=== PATIENT | male | born 1965 | race Caucasian/White ===

== ENCOUNTER 2019-03-09 06:11 | Inpatient (IN) | payer BC ==
[2019-03-09] MEDS ORDERED: BUPIVACAINE HCL/PF 0.5% (5MG/ML) 10 ML VIAL ONE (07:14)
[2019-03-09] MEDS ORDERED: BUPIVACAINE LIPOSOME/PF (EXPAREL) 266 MG/20 ML VIAL ONE (07:14)
[2019-03-09] MEDS ORDERED: MIDAZOLAM HCL 2 MG/2 ML SINGLE DOSE VIAL ONE ×2 (07:17)
[2019-03-09] MEDS ORDERED: THROMBIN (BOVINE) 5,000 UNIT VIAL TP ONE ×3 (07:23→09:29)
[2019-03-09] MEDS ORDERED: HEPARIN NA (PORCINE) 5,000 UNITS/ML 1ML VIAL ONE ×2 (07:23→08:30)
[2019-03-09] MEDS ORDERED: LIDOCAINE HCL/PF 2% SDV 5ML VIAL ONE (08:11)
[2019-03-09] MEDS ORDERED: fentaNYL CITRATE 250 MCG/5 ML VIAL ONE ×4 (08:11→15:12)
[2019-03-09] MEDS ORDERED: PROPOFOL 20 ML ONE ×14 (08:12→14:04)
[2019-03-09] MEDS ORDERED: SUCCINYLCHOLINE CHLORIDE 200 MG/10 ML SYRINGE ONE (08:12)
[2019-03-09] MEDS ORDERED: VANCOMYCIN 1,000 MG VIAL (RESTRICTED TO ID ONLY) IVPB ONE (08:30)
[2019-03-09] MEDS ORDERED: ceFAZolin SODIUM 1 GM VIAL IVPB ONE ×2 (08:30→09:20)
[2019-03-09] MEDS ORDERED: ROCURONIUM BROMIDE 50 MG/5 ML VIAL ONE ×2 (08:56→09:43)
[2019-03-09] MEDS ORDERED: VANCOMYCIN 1,000 MG VIAL (RESTRICTED TO ID ONLY) ONE (09:17)
[2019-03-09] MEDS ORDERED: ceFAZolin SODIUM 1 GM VIAL ONE ×4 (09:17→13:01)
[2019-03-09] MEDS ORDERED: GELATIN, ABSORBABLE 100 EACH SPONGE TP ONE (09:29)
[2019-03-09] MEDS ORDERED: TRANEXAMIC ACID 1000 MG/10 ML VIAL ONE ×2 (10:03)
--- NOTE | 2019-03-09 13:39 | PN ---
Progress Note (short form) - Note Progress Note: 53M POD #0 s/p: 1. L1, L2, L3, L4, L5, S1 laminectomies 2. L1, L2, L3, L4, L5, S1 osteotomies (facetectomies) 3. L4-L5 Ayers Degroot Osteotomies 4. T11-S1 posterior instrumentation 5. L2-L3, L4-L5, L5-S1 discectomies 6. L2-L3, L4-L5, L5-S1 posterior lumbar interbody fusion 7. L2-L3, L4-L5, L5-S1 insertion biomechanical devices 8. T11-S1 posterolateral arthrodesis 9. Durotomy repair 10. Bone allograft 11. Bone autograft 12. Bone marrow aspiration 13. Complex wound closure (30cm) -Admit to ICU post-op. -Pain control: patient received pre-op TLIP block w/Exparel; OK to use TODDLER LEAD TEACHER if needed; transition to oral analgesia post-op; NO NSAID's. -DVT PPx: -Mechanical only: BEAU's, SCD's. -Chemical: None. -Incentive spirometry q15 min. -NPO until flatus. -Lambert care; d/c when ambulating. -Post-op Ancef x 3 doses. -PT/OT/Rehab, OOB. -WBAT B/L LE. -No bending, lifting (>5 lbs), or twisting for 9-12 months. -Care per ICU & medical hospitalist Dr. Henson. -Discharge planning: f/u 7-10 days after discharge at [facility] office; call for appointment; . -Will follow. Rex Paredes MD (Orthopaedic Surgery).
--- NOTE | 2019-03-09 13:46 | OP ---
Operative Note - Note: Operative Date: 03/09/19 Pre-Operative Diagnosis: 1. L2-L3, L4-L5, L5-S1 disc herniations with lower extremity radiculopathy. 2. L1-S1 spinal stenosis with neurogenic claudication. 3. L2-L3 kyphosis with segmental instability and angular deformity. 4. Weakness with frequent falls. 5. Numbness. Severity of illness : 4. Operation: 1. L1, L2, L3, L4, L5, S1 laminectomies. 2. L1, L2, L3, L4, L5, S1 osteotomies (facetectomies). 3. L4-L5 Ayers Degroot Osteotomies. 4. T11-S1 posterior instrumentation. 5. L2-L3, L4-L5, L5-S1 discectomies. 6. L2-L3, L4- L5, L5-S1 posterior lumbar interbody fusion. 7. L2-L3, L4-L5, L5-S1 insertion biomechanical devices. 8. T11-S1 posterolateral arthrodesis. 9. Durotomy repair. 10. Bone allograft. 11. Bone autograft. 12. Bone marrow aspiration. 13. Complex wound closure (30cm) Implants: Cages: L2-L3: FortiLink Tetrafuse #12. L4-L5: FortiLink Tetrafuse # 15. L5-S1: FortiLink Tetrafuse #11. Screws: 6.5x45mm T11-L5. 7.5x40mm S1 Post-Operative Diagnosis: Same as Pre-op Surgeon: Rex Paredes Bone Worker: Mateus Paredes Anesthesiologist/ELECTRIC GOLF CART REPAIRER: Garland Durham Anesthesia: General, Local (TLIP block) Specimens Removed: L2-L3, L4-L5, L5-S1 discs Estimated Blood Loss (mls): 2,400 Drains & Tubes with Location: 1 x superficial HemoVac drain Blood Volume Replaced (mls): 1,125 (Cell Saver) Fluid Volume Replaced (mls): 4,500 (Crystalloid) Operative Report Dictated: Yes
[2019-03-09] MEDS ORDERED: PHENYLEPHRINE HCL 10 MG/1 ML SINGLE DOSE VIAL ONE (13:51)
[2019-03-09] MEDS ORDERED: ONDANSETRON 4 MG/2 ML VIAL IVPUSH PRN ×2 (15:54→16:00)
[2019-03-09] MEDS ORDERED: oxyCODONE HCL 5 MG TABLET PO PRN (16:00)
[2019-03-09] MEDS ORDERED: PROMETHAZINE HCL 25 MG/1 ML VIAL IVPUSH PRN (16:00)
[2019-03-09] MEDS ORDERED: HYDROmorphone *PCA* 10MG/50ML DISP.SYRIN ONE (16:07)
[2019-03-09] MEDS: LACTATED RINGERS SOLUTION 1,000 ML IV SCH (16:14)
[2019-03-09] MEDS: HYDROmorphone *PCA* 10MG/50ML DISP.SYRIN PCA SCH (16:22)
[2019-03-09 16:25] LABS: HYALINE CASTS 29 /lpf (0-8); URINE APPEARANCE TURBID; URINE BACTERIA 6.6 /hpf (NEGATIVE); URINE BILIRUBIN NEGATIVE (NEGATIVE); URINE COLOR YELLOW; URINE GLUCOSE (UA) NEGATIVE (NEGATIVE); URINE KETONE 1+ (NEGATIVE); URINE LEUK ESTERASE NEGATIVE (NEGATIVE); URINE NITRITE NEGATIVE (NEGATIVE); URINE PROTEIN TRACE (NEGATIVE); URINE UROBILINOGEN 0.2 mg/dL (0.2-1.0); URINE WBC 1 /hpf (0-5)
[2019-03-09 17:27] LABS: URINE RBC FEW /hpf (0-4)
[2019-03-09 17:29] LABS: URINE CRYSTALS AMORPHOUS URATES /hpf
--- NOTE | 2019-03-09 18:26 | CONSULT ---
Consultation: REQUESTING PROVIDER: CONSULT REQUEST: We have been asked to medically evaluate this patient for ICU. HISTORY OF PRESENT ILLNESS: Pt is a 53 y/o M with no significant pmh who had been experiencing low back pain since 2009 recently had acute worsening of back pain associated with occasional tingling in toes and weakness of R leg. Pt was brought to OR for intervention on T11-S1 including laminectomies, osteotomies, discectomies, fusion, insertion of biomechanical devices, arthrodesis. Currently, pt feels well. He does admit to residual back pain from the procedure. Currently denies weakness/numbness/tingling. Pt has not passed gas or urinated since the surgery. REVIEW OF SYSTEMS: CONSTITUTIONAL: Absent: fever, chills, diaphoresis, generalized weakness, malaise, loss of appetite, weight change HEENT: Absent: rhinorrhea, nasal congestion, throat pain, throat swelling, difficulty swallowing, mouth swelling, ear pain, eye pain, visual changes CARDIOVASCULAR: Absent: chest pain, syncope, palpitations, irregular heart rate, lightheadedness , peripheral edema RESPIRATORY: Absent: cough, shortness of breath, dyspnea with exertion, orthopnea, wheezing, stridor, hemoptysis GASTROINTESTINAL: Absent: abdominal pain, abdominal distension, nausea, vomiting, diarrhea, constipation, melena, hematochezia GENITOURINARY: Absent: dysuria, frequency, urgency, hesitancy, hematuria, flank pain, genital pain MUSCULOSKELETAL: back pain Absent: myalgia, arthralgia, joint swelling, , neck pain SKIN: Absent: rash, itching, pallor HEMATOLOGIC/IMMUNOLOGIC: Absent: easy bleeding, easy bruising, lymphadenopathy, frequent infections ENDOCRINE: Absent: unexplained weight gain, unexplained weight loss, heat intolerance, cold intolerance NEUROLOGIC: paresthesias, Absent: headache, focal weakness or dizziness, unsteady gait, seizure, mental status changes, bladder or bowel incontinence PSYCHIATRIC: Absent: anxiety, depression, suicidal or homicidal ideation, hallucinations. PHYSICAL EXAMINATION Vital Signs - 24 hr 03/09/19 03/09/19 03/09/19 06:53 06:55 15:55 Temperature 97.9 F 98.0 F Pulse Rate 73 123 H Respiratory 16 11 Rate Blood Pressure 133/90 122/81 O2 Sat by Pulse 99 99 Oximetry (%) 03/09/19 16:22 Temperature Pulse Rate 123 H Respiratory 10 Rate Blood Pressure 116/88 O2 Sat by Pulse 99 Oximetry (%) Gen: lying in bed, appears in some pain HEENT: NCAT, PERRL, EOMI, lips with small papular discolorations Neck: supple, no jvd Cardio: tachycardic, normal s1s2, no mrg appreciated Pulm: cta b/l, no rales, no ronchi Abd: soft, nontender, minimal bowel sounds Ext: no edema, 2+ pulses Neuro: limited exam due to pain. CN 2-12 intact. Strength 5/5 b/l UE. Plantar flexion/dorsiflexion intact b/l. Unable to assess hip/knee flexion/extension. Sensation intact b/l throughout. Laboratory Results - last 24 hr 03/09/19 03/09/19 03/09/19 06:24 07:37 15:23 Urine Color Yellow Urine Appearance Turbid Urine pH 6.0 Ur Specific [place] 1.037 H Urine Protein Trace Urine Glucose (UA) Negative Urine Ketones 1+ H Urine Blood 2+ H Urine Nitrite Negative Urine Bilirubin Negative Urine Urobilinogen 0.2 Ur Leukocyte Esterase Negative Urine WBC (Auto) 1 Urine RBC (Auto) Few Urine Casts (Auto) 29 U Epithel Cells (Auto) 2.0 Urine Crystals (Auto) Amorphous urates Urine Bacteria (Auto) 6.6 Blood Type A POSITIVE A POSITIVE Antibody Screen Negative Crossmatch IS Only See Detail Active Medications Generic Name Dose Route Start Last Admin Trade Name Freq PRN Reason Stop Dose Admin Acetaminophen 1,000 mg 03/09/19 15:54 Ofirmev Injection - IVPB 03/10/19 15:53 PRN PRN If narcotics are ineffective Cefazolin Sodium/Dextrose 2 gm 03/09/19 20:00 Ancef 2 Gm Premixed Ivpb - IVPB 03/10/19 12:01 Q8H KEYSHA Fentanyl 50 mcg 03/09/19 16:17 Sublimaze Injection - IVPUSH 03/10/19 02:00 Q5M PRN PAIN-PACU ORDER X 4 DOSES ONLY Hydromorphone HCl 10 mg 03/09/19 16:15 03/09/19 16:22 Dilaudid Social Work Faculty Member - CERTIFIED RECREATIONAL THERAPIST 03/12/19 16:02 10 mg CERTIFIED RECREATIONAL THERAPIST KEYSHA Administration Protocol Lactated Ringer's 1,000 mls @ 125 mls/hr 03/09/19 16:00 03/09/19 16:14 Lactated Ringers Solution IV 125 mls/hr ASDIR KEYSHA Administration Ondansetron HCl 4 mg 03/09/19 15:54 Zofran Injection IVPUSH Q6H PRN NAUSEA AND/OR VOMITING Ondansetron HCl 4 mg 03/09/19 16:00 Zofran Injection IVPUSH Q6H PRN NAUSEA AND/OR VOMITING Oxycodone HCl 10 mg 03/09/19 16:00 Roxicodone - PO 03/10/19 15:59 Q4H PRN PAIN LEVEL 6-10 Promethazine HCl 12.5 mg 03/09/19 16:00 Phenergan Injection - IVPUSH Q6H PRN NAUSEA-FOR RESCUE AFTER 15 MIN Triamterene/HCTZ 1 cap 03/10/19 10:00 Dyazide 25/37.5mg PO DAILY KEYSHA ASSESSMENT/PLAN: Pt is a 53 y/o M with no significant PMH who was experiencing chronic back and leg pain and was brought to the hospital for surgical repair of thoracolumosacral disease. #POD 0 back surgery (03/09/2019) -1. L1, L2, L3, L4, L5, S1 laminectomies. 2. L1, L2, L3, L4, L5, S1 osteotomies (facetectomies). 3. L4-L5 Ayers Degroot Osteotomies. 4. T11-S1 posterior instrumentation. 5. L2-L3, L4-L5, L5-S1 discectomies. 6. L2-L3, L4- L5, L5-S1 posterior lumbar interbody fusion. 7. L2-L3, L4-L5, L5-S1 insertion biomechanical devices. 8. T11-S1 posterolateral arthrodesis. 9. Durotomy repair. 10. Bone allograft. 11. Bone autograft. 12. Bone marrow aspiration. 13. Complex wound closure (30cm) -Pain currently controlled with CERTIFIED RECREATIONAL THERAPIST & Oxy -Pt denies urination/flatulence/BM -NPO #Nausea -Phenergen #Leg swelling -Pt states he takes Dyazide for leg swelling Dispo: We will continue to follow the patient. Thank you for this consultative opportunity. Visit type - Emergency Visit Emergency Visit: No - New Patient This patient is new to me today: Yes Date on this admission: 06/10/19 - Critical Care Critical Care patient: Yes Total Critical Care Time (in minutes): 25
--- NOTE | 2019-03-09 20:20 | HP ---
Admitting History and Physical - Admission Chief Complaint: back pain History of Present Illness: 53 y/o M with no significant PMH who was experiencing chronic back and leg pain and was brought to the hospital for surgical repair of thoracolumosacral disease. History Source: Patient Limitations to Obtaining History: No Limitations - Past Medical History STOCK ROLLER: No: Alzheimer's, CVA, Dementia, Migraine, Multiple Sclerosis, Peripheral Neuropathy, Parkinson's, Seizure, Syncope, TIA, Vertigo, Other Cardiovascular: No: AFIB, Aneurysm, Aortic Insufficiency, Aortic Stenosis, CAD, CHF, Deep Vein Thrombosis, HTN, Hyperlipdemia, DE, Mitral Insufficiency, Mitral Stenosis, Murmur, Pulmonary Hypertension, Other Pulmonary: No: Asthma, Bronchitis, Cancer, COPD, O2 Dependent, Pneumonia, Previously Intubated, Pulmonary Embolus, Pulmonary Fibrosis, Sleep Apnea, Other Gastrointestinal: No: Ascites, Cancer, Constipation, Crohn's Disease, Diverticulitis, Diverticulosis, Esophageal Varices, Gastritis, GERD, GI Bleed, Hemorrhoids, Hiatal Hernia, Inflamatory Bowel Disease, Irritable Bowel Disease, Pancreatitis, Peptic Ulcer Disease, Ulcerative Colitis, Other Hepatobiliary: No: Cirrhosis, Cholelithiasis, Cholecystitis, Choledocholithiasis , Hepatitis A, Hepatitis B, Hepatitis C, Other Renal/: No: Renal Failure, Renal Inusuff, BPH, Cancer, Hematuria, Hemodialysis , Neurogenic Bladder, Renal Calculi, UTI, Other Heme/Onc: No: Anemia, B12 Deficiency, Bleeding Disorder, Cancer, Current Chemotherapy, Current Radiation Therapy, Hemochromatosis, Hypercoaguable State, Myeloproliferative Synd, Sickle Cell Disease, Sickle Cell Trait, Thrombocytopenia, Other Infectious Disease: No: AIDS, C-Diff, Herpes Zoster, HIV, MRSA, STD's, Tuberculosis, VREF, Other Psych: No: Addictions, Anxiety, Bipolar, Depression, Panic, Psychosis, Schizophrenia, Other Musculoskeletal: No: Bursitis, Chronic low back pain, Hemiparesis, Hemiplegia, Osteoarthritis, Paraplegia, Other Rheumatology: No: Fibromyalgia, Gout, Lupus, Rheumatoid Arthritis, Sarcoidosis, Vasculitis, Other ENT: No: Allergic Rhinitis, Sinusitis, Other Dermatology: No: Basal Cell, Cellulitis, Eczema, Melanoma, Psoriasis, Squamous Cell, Other - Past Surgical History Past Surgical History: Yes: None - Smoking History Smoking history: Never smoked - Alcohol/Substance Use Hx Alcohol Use: Yes (OCCAS) - Social History History of Recent Travel: No Home Medications - Allergies Allergies/Adverse Reactions: Allergies Allergy/AdvReac Type Severity Reaction Status Date / Time No Known Allergies Allergy Verified 03/09/19 06:50 - Home Medications Home Medications: Ambulatory Orders Cholecalciferol (Vitamin D3) [Vitamin D] 2,000 unit PO DAILY 03/06/19 Docusate Sodium [Colace] 100 mg PO BID 03/06/19 Oxycodone HCl/Acetaminophen [Percocet 5-325 mg Tablet] 1 tab PO Q4H 03/06/19 Triamterene/Hydrochlorothiazid [Triamterene-Hctz 37.5-25 mg Cp] 1 each PO DAILY 03/06/19 Review of Systems - Review of Systems Constitutional: reports: No Symptoms Eyes: reports: No Symptoms HENT: reports: No Symptoms Neck: reports: No Symptoms Cardiovascular: reports: No Symptoms Respiratory: reports: No Symptoms Gastrointestinal: reports: No Symptoms Genitourinary: reports: No Symptoms Musculoskeletal: reports: Back Pain, Joint Swelling Integumentary: reports: No Symptoms Neurological: reports: No Symptoms Endocrine: reports: No Symptoms Hematology/Lymphatic: reports: No Symptoms Psychiatric: reports: No Symptoms Physical Examination Vital Signs: Vital Signs Temperature 98 F 03/09/19 16:45 Pulse Rate 123 H 03/09/19 18:22 Respiratory Rate 4 L 03/09/19 18:22 Blood Pressure 107/74 03/09/19 18:22 O2 Sat by Pulse Oximetry (%) 99 03/09/19 18:22 Constitutional: Yes: Well Nourished, No Distress, Calm Eyes: Yes: WNL HENT: Yes: WNL Cardiovascular: Yes: WNL Respiratory: Yes: WNL Gastrointestinal: Yes: WNL Renal/: Yes: WNL Musculoskeletal: Yes: Back Pain, Joint Swelling Extremities: Yes: WNL Edema: No Integumentary: Yes: WNL Wound/Incision: Yes: Clean/Dry, Well Approximated Neurological: Yes: WNL ...Motor Strength: WNL Psychiatric: Yes: WNL Assessment/Plan 53 y/o M with no significant PMH who was experiencing chronic back and leg pain and was brought to the hospital for surgical repair of thoracolumosacral disease. -S/P: 1. L1, L2, L3, L4, L5, S1 laminectomies. 2. L1, L2, L3, L4, L5, S1 osteotomies (facetectomies). 3. L4-L5 Ayers Degroot Osteotomies. 4. T11-S1 posterior instrumentation. 5. L2-L3, L4-L5, L5-S1 discectomies. 6. L2-L3, L4- L5, L5-S1 posterior lumbar interbody fusion. 7. L2-L3, L4-L5, L5-S1 insertion biomechanical devices. 8. T11-S1 posterolateral arthrodesis. 9. Durotomy repair. 10. Bone allograft. 11. Bone autograft. 12. Bone marrow aspiration. 13. Complex wound closure (30cm) -cont pain management. incentive spirometry. -He is currently hypoxic and tachycardic. IV fluids running. cont O2 via NC. keep O2>92%. will get D-dimer, troponin, ABG, CBC, CMP -GI, DVT prophylaxis. needs to be on full AC till is PE ruled out. -NPO, IV fluids -assessment and plan discussed with pt and medical staff. will follow up
[2019-03-09] MEDS ORDERED: HEPARIN NA (PORCINE) 5,000 UNITS/ML 1ML VIAL IVPUSH PRN (20:42)
--- NOTE | 2019-03-09 20:54 | PN ---
Progress Note (short form) - Note Progress Note: Currently pt reports being in 3/10 intensity of pain with mild parasthesias of the toes b/l. PE: Gen: NAD, awake, alert, oriented x3 HEENT: NC/AT, EOMI, ROSMERY, sclera anicteric, MMM, no JVD LUNGS: poor inspiratory effort however no wheezes or crackles noted. Currently saturating 100% on 3L CARDIAC: Tachycardic with regular rhythm, no murmurs appreciated in all kohler EXT: No edema noted, no calf tenderness, SCDs in place NEURO: Symmetrical dullness of sensation noted on b/l lower feet. Pressure sensation intact, motor function limited due to post-operative pain however symmetricl. CN's II-XII intact Given pt's hypoxia off of oxygen (88-89% off oxygen) and unresolving sinus tachycardia without pain will order ABG, CBC, BMP, d-dimer as discussed with Dr. Henson. Pt has notable desaturation off of oxygen, however he responds with continued oxygen treatment. Start on heparin gtt as Dr. Henson has discussed and will f/u lab findings. Incentive spirometer to bedside as well.
[2019-03-09 21:12] LABS: ARTERIAL BLD GAS O2 SATURATION 98.1 % (95-98); ARTERIAL BLOOD GAS BASE EXCESS -3.4 meq/l (-2-2); ARTERIAL BLOOD GAS PCO2 42.4 mmHg (35-45); ARTERIAL BLOOD GAS PO2 121 mmHg (80-105); ARTERIAL BLOOD GAS pH 7.33 (7.35-7.45)
[2019-03-09 21:13] LABS: ALLENS TEST POSITIVE
[2019-03-09] MEDS: ceFAZolin 2 GRAM PREMIX BAG IVPB SCH (21:15)
[2019-03-09] MEDS: ACETAMINOPHEN 1000 MG/100 ML VIAL (NON FORMULARY) IVPB PRN (21:15)
[2019-03-09 22:36] LABS: HEMATOCRIT 40.2 % (35.4-49); HEMOGLOBIN 13.4 GM/dL (11.7-16.9); MCH 29.3 pg (25.7-33.7); MCHC 33.4 g/dl (32.0-35.9); MEAN CELL VOLUME 87.8 fl (80-96); PLATELET COUNT 183 K/MM3 (134-434); RBC 4.58 M/mm3 (4.00-5.60); RDW 13.3 % (11.9-15.9); WHITE BLOOD COUNT 19.2 K/mm3 (4.0-10.0)
[2019-03-09] MEDS: HEPARIN INFUSION - 25,000 UNITS/500 ML INFUS.BAG IVPB SCH (23:00)
[2019-03-09 23:12] LABS: ANION GAP 7 MMOL/L (8-16); BLOOD UREA NITROGEN 26.6 mg/dL (7-18); CHLORIDE 111 mmol/L (98-107); CO2 24 mmol/L (21-32); CREATININE 1.2 mg/dL (0.55-1.3); GLUCOSE,RANDOM 152 mg/dL (74-106); SODIUM 141 mmol/L (136-145)
[2019-03-10] MEDS: ACETAMINOPHEN 1000 MG/100 ML VIAL (NON FORMULARY) IVPB PRN (03:59)
[2019-03-10] MEDS: ceFAZolin 2 GRAM PREMIX BAG IVPB SCH ×2 (03:59→11:49)
[2019-03-10] MEDS ORDERED: HYDROmorphone *PCA* 10MG/50ML DISP.SYRIN ONE ×2 (05:06→17:24)
[2019-03-10 05:39] LABS: HEMATOCRIT 36.3 % (35.4-49); HEMOGLOBIN 12.1 GM/dL (11.7-16.9); MCHC 33.2 g/dl (32.0-35.9); MEAN CELL VOLUME 87.4 fl (80-96); MEAN PLT VOLUME 9.5 fl (7.5-11.1); RBC 4.15 M/mm3 (4.00-5.60); RDW 13.3 % (11.9-15.9); WHITE BLOOD COUNT 15.4 K/mm3 (4.0-10.0)
[2019-03-10 05:55] LABS: INR 1.15 (0.83-1.09); PROTHROMBIN TIME (PATIENT) 13.6 SEC (9.7-13.0)
[2019-03-10 05:58] LABS: ACTIVATED PTT 44.6 SECONDS (25.2-36.5)
[2019-03-10 06:03] LABS: BLOOD UREA NITROGEN 27.2 mg/dL (7-18); CALCIUM 7.9 mg/dL (8.5-10.1); CREATININE 1.2 mg/dL (0.55-1.3); POTASSIUM 4.5 mmol/L (3.5-5.1)
[2019-03-10 06:28] LABS: PLATELET COUNT 167 K/MM3 (134-434)
--- NOTE | 2019-03-10 08:20 | PN ---
Physical Exam: SUBJECTIVE: Patient seen and examined at bedside- overnight patient was found to be hypoxic/tachycardic and a CTA was done showing PE in proximal to mid right lower lobe pulmonary arteries . patient states his pain is around a 5/10; he has not passed gas yet; he denies any CP/SOB/N/V- needed to use his THERAPY DIRECTOR quite frequently overnight . OBJECTIVE: Vital Signs Period Temp Pulse Resp BP Sys/Augustin Pulse Ox Last 24 Hr 97.8 F-99.1 F 104-126 4-23 105-131/68-89 96-100 GENERAL: The patient is awake, alert, and fully oriented, in no acute distress. EYES:PEERLA: EOMI; no scleral icterus NECK: no JVD; no lymphadenopathy . LUNGS: CTA B.L; no rales, rhonchi or wheezing HEART: Regular rate and rhythm, S1, S2 without murmur, rub or gallop. ABDOMEN: Soft, nontender, nondistended, normoactive bowel sounds, no guarding, no rebound, no hepatosplenomegaly, no masses. EXTREMITIES: 2+ pulses, warm, well-perfused, no edema; NEUROLOGICAL: Cranial nerves II through XII grossly intact. patient wiggling toes and sensation is intact throughout PSYCH: Normal mood, normal affect. SKIN: Warm, dry, normal turgor, no rashes or lesions noted Laboratory Results - last 24 hr 03/09/19 03/09/19 03/09/19 06:24 07:37 15:23 WBC RBC Hgb Hct MCV MCH MCHC RDW Plt Count MPV PT with INR INR PTT (Actin FS) D-Dimer Puncture Site ABG pH ABG pCO2 at Pt Temp ABG pO2 at Pt Temp ABG HCO3 ABG O2 Sat (Measured) ABG O2 Content ABG Base Excess Driss Test O2 Delivery Device Oxygen Flow Rate Sodium Potassium Chloride Carbon Dioxide Anion Gap BUN Creatinine Est GFR (CKD-EPI)AfAm Est GFR (CKD-EPI)NonAf Random Glucose Calcium Creatine Kinase Creatine Kinase Index CK-MB (CK-2) Troponin I Urine Color Yellow Urine Appearance Turbid Urine pH 6.0 Ur Specific [place] 1.037 H Urine Protein Trace Urine Glucose (UA) Negative Urine Ketones 1+ H Urine Blood 2+ H Urine Nitrite Negative Urine Bilirubin Negative Urine Urobilinogen 0.2 Ur Leukocyte Esterase Negative Urine WBC (Auto) 1 Urine RBC (Auto) Few Urine Casts (Auto) 29 U Epithel Cells (Auto) 2.0 Urine Crystals (Auto) Amorphous urates Urine Bacteria (Auto) 6.6 Blood Type A POSITIVE A POSITIVE Antibody Screen Negative Crossmatch IS Only See Detail 03/09/19 03/09/19 03/09/19 20:40 21:15 21:15 WBC RBC Hgb Hct MCV MCH MCHC RDW Plt Count MPV PT with INR INR PTT (Actin FS) D-Dimer 7880 H Puncture Site Right radial ABG pH 7.33 L ABG pCO2 at Pt Temp 42.4 ABG pO2 at Pt Temp 121 H ABG HCO3 21.8 L ABG O2 Sat (Measured) 98.1 H ABG O2 Content 18.5 ABG Base Excess -3.4 L Driss Test Positive O2 Delivery Device Nasal o2 Oxygen Flow Rate 3 Sodium 141 Potassium 5.0 Chloride 111 H Carbon Dioxide 24 Anion Gap 7 L BUN 26.6 H Creatinine 1.2 Est GFR (CKD-EPI)AfAm 78.98 Est GFR (CKD-EPI)NonAf 68.14 Random Glucose 152 H Calcium 8.0 L Creatine Kinase 5800 H Creatine Kinase Index 1.6 CK-MB (CK-2) 97.0 H Troponin I < 0.02 Urine Color Urine Appearance Urine pH Ur Specific [place] Urine Protein Urine Glucose (UA) Urine Ketones Urine Blood Urine Nitrite Urine Bilirubin Urine Urobilinogen Ur Leukocyte Esterase Urine WBC (Auto) Urine RBC (Auto) Urine Casts (Auto) U Epithel Cells (Auto) Urine Crystals (Auto) Urine Bacteria (Auto) Blood Type Antibody Screen Crossmatch IS Only 03/09/19 03/09/19 03/10/19 21:15 22:15 05:20 WBC 19.2 H 15.4 H RBC 4.58 4.15 Hgb 13.4 12.1 Hct 40.2 36.3 MCV 87.8 87.4 MCH 29.3 29.0 MCHC 33.4 33.2 RDW 13.3 13.3 Plt Count 183 167 MPV 10.0 9.5 PT with INR INR PTT (Actin FS) 25.9 D-Dimer Puncture Site ABG pH ABG pCO2 at Pt Temp ABG pO2 at Pt Temp ABG HCO3 ABG O2 Sat (Measured) ABG O2 Content ABG Base Excess Driss Test O2 Delivery Device Oxygen Flow Rate Sodium Potassium Chloride Carbon Dioxide Anion Gap BUN Creatinine Est GFR (CKD-EPI)AfAm Est GFR (CKD-EPI)NonAf Random Glucose Calcium Creatine Kinase Creatine Kinase Index CK-MB (CK-2) Troponin I Urine Color Urine Appearance Urine pH Ur Specific [place] Urine Protein Urine Glucose (UA) Urine Ketones Urine Blood Urine Nitrite Urine Bilirubin Urine Urobilinogen Ur Leukocyte Esterase Urine WBC (Auto) Urine RBC (Auto) Urine Casts (Auto) U Epithel Cells (Auto) Urine Crystals (Auto) Urine Bacteria (Auto) Blood Type Antibody Screen Crossmatch IS Only 03/10/19 03/10/19 05:20 05:20 WBC RBC Hgb Hct MCV MCH MCHC RDW Plt Count MPV PT with INR 13.60 H INR 1.15 H PTT (Actin FS) 44.6 H D-Dimer Puncture Site ABG pH ABG pCO2 at Pt Temp ABG pO2 at Pt Temp ABG HCO3 ABG O2 Sat (Measured) ABG O2 Content ABG Base Excess Driss Test O2 Delivery Device Oxygen Flow Rate Sodium 142 Potassium 4.5 Chloride 108 H Carbon Dioxide 26 Anion Gap 9 BUN 27.2 H Creatinine 1.2 Est GFR (CKD-EPI)AfAm 78.98 Est GFR (CKD-EPI)NonAf 68.14 Random Glucose 154 H Calcium 7.9 L Creatine Kinase Creatine Kinase Index CK-MB (CK-2) Troponin I Urine Color Urine Appearance Urine pH Ur Specific [place] Urine Protein Urine Glucose (UA) Urine Ketones Urine Blood Urine Nitrite Urine Bilirubin Urine Urobilinogen Ur Leukocyte Esterase Urine WBC (Auto) Urine RBC (Auto) Urine Casts (Auto) U Epithel Cells (Auto) Urine Crystals (Auto) Urine Bacteria (Auto) Blood Type Antibody Screen Crossmatch IS Only Active Medications Generic Name Dose Route Start Last Admin Trade Name Freq PRN Reason Stop Dose Admin Acetaminophen 1,000 mg 03/09/19 15:54 03/10/19 03:59 Ofirmev Injection - IVPB 03/10/19 15:53 1,000 mg PRN PRN Administration If narcotics are ineffective Cefazolin Sodium/Dextrose 2 gm 03/09/19 20:00 03/10/19 03:59 Ancef 2 Gm Premixed Ivpb - IVPB 03/10/19 12:01 2 gm Q8H KEYSHA Administration Heparin Sodium (Porcine) 1,000 unit 03/09/19 20:42 Heparin - IVPUSH PRN PRN Heparin Heparin Sodium (Porcine) 5,000 unit 03/09/19 20:42 Heparin - IVPUSH PRN PRN Heparin Hydromorphone HCl 10 mg 03/09/19 16:15 03/09/19 16:22 Dilaudid Spray Gun Repairer - THERAPY DIRECTOR 03/12/19 16:02 10 mg THERAPY DIRECTOR KEYSHA Administration Protocol Lactated Ringer's 1,000 mls @ 125 mls/hr 03/09/19 16:00 03/09/19 16:14 Lactated Ringers Solution IV 125 mls/hr ASDIR KEYSHA Administration Heparin Sodium/Dextrose 25,000 units in 500 mls @ 20 mls/hr 03/09/19 20:45 23:00 Heparin Infusion - IVPB 1,000 units/hr TITR KEYSHA 20 mls/hr Administration Protocol 1,000 UNITS/HR Ondansetron HCl 4 mg 03/09/19 15:54 Zofran Injection IVPUSH Q6H PRN NAUSEA AND/OR VOMITING Ondansetron HCl 4 mg 03/09/19 16:00 Zofran Injection IVPUSH Q6H PRN NAUSEA AND/OR VOMITING Oxycodone HCl 10 mg 03/09/19 16:00 Roxicodone - PO 03/10/19 15:59 Q4H PRN PAIN LEVEL 6-10 Promethazine HCl 12.5 mg 03/09/19 16:00 Phenergan Injection - IVPUSH Q6H PRN NAUSEA-FOR RESCUE AFTER 15 MIN Triamterene/HCTZ 1 cap 03/10/19 10:00 Dyazide 25/37.5mg PO DAILY [facility] ASSESSMENT/PLAN: 53 y.o male with PMH of HTN presented for worsening lower back pain and right toe numbness/tingling who underwent T11-S11 laminectomies, osteotomies, discectomies, fusions, arthroodesis who was found to have a R lower lobe PE #Neuro stable; no issues sensation intact throughout extremities -will monitor #Cardio patient has history of HTN -c/w home meds -given that patient was found to have PE - ordering echp -monitor hemodynamics # Heme patient found to have right pulmonary artery PE; no risk factors (no smoking history, recent travel, fam history) -currently on Heparin drip -monitor for signs of bleeding -monitor PTT; CBC daily -ordering echo and LE duplex #MSK POD #1 T11-S11 laminectomies/discectomies/fusions/arthrodesis -Dilaudid THERAPY DIRECTOR for pain; Oxy 5/10 -Zofran PRN for nausea -OOB -NPO until flatus -LR @125mls/hr -incentive spirometer -follow Dr. Paredes/Sixto recommendations #Pulmonary patient found to have PE in prox to mid right lower lobe pulmonary artery -patient currently on Heparin drip -monitor PTT/CBC -monitor O2 sats and hemodynamics F/E/N LR @125mls/hr monitor electrolytes NPO until flatus DVT PPX: heparin drip Problem List - Problems (1) Hx of spinal surgery Code(s): Z98.890 - OTHER SPECIFIED POSTPROCEDURAL STATES (2) Pulmonary embolism Code(s): I26.99 - OTHER PULMONARY EMBOLISM WITHOUT ACUTE COR PULMONALE (3) HTN (hypertension) Code(s): I10 - ESSENTIAL (PRIMARY) HYPERTENSION Visit type - Emergency Visit Emergency Visit: Yes ED Registration Date: 03/09/19 Care time: The patient presented to the Emergency Department on the above date and was hospitalized for further evaluation of their emergent condition. - New Patient This patient is new to me today: Yes Date on this admission: 03/10/19 - Critical Care Critical Care patient: Yes Total Critical Care Time (in minutes): 35 Critical Care Statement: The care of this patient involved high complexity decision making to prevent further life threatening deterioration of the patient 's condition and/or to evaluate & treat vital organ system(s) failure or risk of failure.
[2019-03-10] MEDS: HEPARIN NA (PORCINE) 5,000 UNITS/ML 1ML VIAL IVPUSH PRN ×2 (08:40→17:48)
[2019-03-10] MEDS ORDERED: PT OWN MED DRAWER 7, Y5N ONE (09:34)
[2019-03-10] MEDS: TRIAMTERENE AND HCTZ - 37.5 MG/25 MG CAPSULE PO SCH (09:38)
--- NOTE | 2019-03-10 12:14 | OP ---
Date of Operation: 03/09/2019 Pre-Operative Diagnosis: 1. 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 2. L1-S1 intervertebral disc disorders with bilateral lower extremity radiculopathy. 3. L1-S1 spinal stenosis with neurogenic claudication. 4. L1-S1 degenerative disease. Post-Operative Diagnosis: 1. 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 2. L1-S1 intervertebral disc disorders with bilateral lower extremity radiculopathy. 3. L1-S1 spinal stenosis with neurogenic claudication. 4. L1-S1 degenerative disease. Procedure Performed: 1. L1, L2, L3, L4, L5, S1 bilateral laminectomies & facetectomies. (87730-77 , 41073-21 x 5) 2. L2-L3, L4-L5, L5-S1 posterolateral arthrodesis & posterior lumbar interbody fusion (PLIF). (30704 x 3) 3. L2-L3, L4-L5, L5-S1 insertion biomechanical devices (77553 x 3). 4. T11-S1 posterior instrumentation. (25181-93-80) 5. T11-T12 posterolateral arthrodesis. (62817-48, 15629-52) 6. L1-L2, L3-L4 posterolateral arthrodesis. (15750-91, 90887-43) 7. Repair incidental durotomy. 8. Morselized bone autograft. (07879) 9. Morselized bone allograft. (86899) 10. Bone marrow aspiration for bone grafting. (26361) 11. Complex wound closure (45cm) (16398 x 6) Surgeon: Rex Paredes M.D. Olap Developer: Mateus Paredes M.D. Anesthesiologist: Garland Durham M.D. Anesthesia: General, Local (TLIP block). Position: Prone. Incision: Midline. Specimens Removed: L2-L3, L4-L5, L5-S1 disc. Implants: Cages: Fortilink Tetrafuse. L2-L3: 12mm. L4-L5: 15mm. L5-S1: 11mm. Screws: T11-L5 14 x 6.5x45mm. S1 2 x 7.5x40mm. Rods: 2. Cross-Link: 1. Drains: 1 x superficial HemoVac. Estimated Blood Loss: 1,500cc. Intravenous Fluid: 2L crystalloid. Transfusions: 600cc Cell Saver. Complications: None. Bacteriology: None. Closure: No. 1 Vicryl, 2-0 Biosyn absorbable sutures. Indications: The patient was indicated for the above listed surgical procedure due to progressive spinal deformity affecting balance and safety, and due to progressive neurological and functional decline that limits his mobility and ability to attend to his activities of daily living. The patient was identified in the holding area by his armband. A long discussion was held with the patient (in the presence of his ) regarding the risks, benefits, and alternatives of the above-listed procedure. The risks include, but are not limited to: Pain, bleeding, infection, damage to surrounding structures (including nerves, blood vessels, skin, ligaments, tendons, and bone), wound complications, failure of hardware/implants/reduction , need for further surgery, blood clots, myocardial infarction, cerebrovascular injury, pulmonary embolism, anesthesia complications, limp, numbness, paresthesias, loss of function, and . Benefits may include reduction of: spinal deformity, imbalance, back pain, radiculopathy, neurogenic claudication, and improved overall mobility and function. Alternatives include no surgery. All questions were answered. The patient understood and agreed to the procedure. Informed consent was obtained, witnessed, and verified. The patient's lumbar spine was marked. He was then assessed by the anesthesia team who proceeded to administer a bilateral imaging-guided TLIP block to facilitate post-operative pain management. The patient was then taken to the operating room after being seen by the anesthesia and nursing staff. Procedure: The patient was brought into the operating room, where anesthesia was then administered. This included 2g IV Ancef, 1g IV Vancomycin, and 1g IV tranexamic acid (TXA). A time-out was done led by , the attending surgeon. An indwelling Lambert catheter was successfully inserted by the nursing team. The intra-operative neuromonitoring team provided prepositioning baseline motor and sensory readings. The patient was then safely placed in a prone position with all bony prominences well-padded on a [facility] spine table with strict attention paid to maintenance of sagittal vertical alignment. Retroversion of the pelvis was avoided by ensuring that the hips were extended. This also ensured appropriate lumbar lordosis. The arms were placed on well-padded arm boards and maintained with standard forward flexion, abduction, and external rotation of the shoulders , and flexion of the elbows. Special attention was given to the safe positioning of the cervical spine. The patients eyes, and belly were all free. The table was placed in 6 degrees of reverse Trendelenburg position to avoid ophthalmic vein congestion. Post-positional motor and sensory readings confirmed no change. A C-arm fluoroscopy unit was positioned perpendicularly to the table and maintained at the level of the upper thoracic spine, except when needed. The skin was prepped in standard, sterile fashion using betadine prep & scrub, wiped off with alcohol, and DuraPrep applied. Standard window draping was utilized, and this included draping of the C-arm. Appropriate pre-operative imaging, including lumbar spine x-rays, and MRI, were available throughout the case for intraoperative evaluation. Verification of the intended surgical levels was confirmed with a lateral fluoroscopic x-ray using a Jessica elevator for localization. A time-out was repeated, and the case began. A midline skin incision was performed from the tip of the spinous process of T10 to the tip of the spinous process of S2. Using electrocautery, the dissection was carried down through subcutaneous fat and then through the midline of the lumbodorsal fascia down to the tips of the spinous processes. A subperiosteal dissection was performed using a combination of unipolar electrocautery and Jessica elevation. This was carried down the spinous process, over the laminae, across the facet joints, and out over the tips of the transverse processes from T11 to S1. The T11-S1 joint capsules were pathologically hypertrophic. They were ablated using electrocautery and resected with rongeurs. The posterolateral dissection was performed with attention to hemostatis by utilizing both unipolar as well as bipolar electrocautery. The posterolateral space was packed with Ray-Isi sponges. A Lilian clamp was placed over an exposed interspinous space and, once again, a lateral fluoroscopic x-ray helped identify the correct levels for dissection. A rongeur was used to grasp the L5 spinous processes and demonstrate the mobility of the L5-S1 segments. This confirmed the location of the last mobile segment. The bilateral L1, L2, L3, L4, L5, and S1 laminae were resected utilizing Kerrison rongeur upcuts combined with Leksell rongeurs. This completed the L1- S1 laminectomies. All harvested bone was saved, freed of fibrous tissue, and milled with a bone mill. Next, an osteotome was utilized to longitudinally split the pars interarticularis and the inferior facets of L1, L2, L3, L4, and L5 bilaterally. The osteotomized bone was imploded towards the thecal sac, which was protected with cottonoid patties, and removed with either a Leksell rongeur or a Kerrison ronguer. An incidental durotomy was identified and repaired using 4-0 Nurolon suture. Multiple Valsalva maneuvers up to 40mmHg ensured a water-tight, excellent dural repair. Upon removal of all osteotomized bone, we gained clear and easy access to the superior facets of L2, L3, L4, L5, and S1, where tight recess stenosis was appreciated. The exiting L1, L2 L3, L4, L5 & S1 nerve roots were identified and protected. The medial edge of the superior facets was resected at each level bilaterally using Kerrison rongeurs. This freed the theca and the exiting nerve roots at each level. The foraminae, bilaterally, at L1-L2, L2-L3, L3-L4, L4-L5, and L5-S1 were inspected utilizing an angled ball-tipped probe and proved to be generously capacious in accommodating the unobstructed exit of the nerve root at that level. The crowding of the convoluted ligamentum flavum and posterior facet joint capsules contributed to the recess stenosis. These structures were excised using Kerrison upcuts, thus fully completing the decompression. All retractors were relaxed and removed. A Jamshidi needle was delivered into the left posterior ileum through the same surgical incision. Via this, bone marrow was aspirated and spun down to isolate a mix of osteoprogenitor and hematopoietic cells. Retractors were inserted once again. The following was performed at L2-L3, L4-L5 and also at L5-S1: The theca was gently mobilized from right to left and from left to right using a nerve root retractor. In order to do this, we ensured that each nerve root was completely free in its neural foramen as previously described. With the disc clearly visualized, large epidural veins were cauterized using bipolar electrocautery. The disc was approached from the left side and using a # 11-blade, an cruciate annulotomy was performed. Ginna were passed into the disc at each level. At each level the discs were morselized with rotation of the ginna, and then extricated with pituitary rongeurs and saved for lab evaluation. The end plates were freed of all soft tissues using a serrated curette. Milled bone autograft was packed into the interbody space, thus completing an anterior arthrodesis of the intervertebral space. At L2-L3, a size 12mm x 22mm Fortilink Tetrafuse spacer was inserted. At L4-L5, a size 15mm x 22mm Fortilink Tetrafuse spacer was inserted. At L5-S1, a size 11mm x 22mm Fortilink Tetrafuse spacer was inserted. Each spacer was packed with bone autograft prior to insertion. Each cage was placed in a Press-Fit type manner where the ginna were one size under the actual size of the spacer placed as outlined above. An interference fit of the cage assured as we relied on ligamentotaxis for fixation. No dural problems were encountered, and the dura appeared healthy throughout the procedure. At this point, the neuromonitoring revealed no complications. In fact, there was an improvement in MEP readings relative to baseline reported at this point. Pedicle screws were then seated bilaterally from T11-S1 utilizing standard anatomical guidelines: IE the intersection of the horizontal axis of the transverse process with the longitudinal axis of the inferior facet at each level. Utilizing lateral fluoroscopic x-ray, a 4.5mm pneumatic drill was passed via the pedicle at each level, into the corresponding vertebral body. Imaging allowed us to ensure that the drill screw was delivered along the undersurface of each endplate. This was the best quality bone fixation at each level. Each pedicle was palpated with a ball tip feeler. No breech of anterior, medial , lateral, caudal or cranial bone bed was noted. Precision Spine pedicle screws were inserted from T11-S1. Each screw was reevaluated with lateral and anteroposterior fluoroscopy as well as intraoperative neuromonitoring. All intraoperative neuromonitoring readings were at or above the safe passage of 10 mA. The L1 and S1 pedicles were inspected and palpated using an angled ball-tipped probe. There was no evidence of screw breach involving any of the pedicles. Next, two rods were contoured, inserted and fixed into the screw heads with the appropriate screw caps. A torque-limiting device completed the fixation of each cap into each screw head. A single crosslink was utilized. The muscle was gently retracted off the intertransverse plane. All packing sponges were removed. Milled/morselized autologous bone, with morselized allograft bone expansion, was combined with the bone marrow aspiration and used for the posterolateral arthrodesis along the intertransverse plane from T11 to S1. The recipient bone bed was denuded of all soft tissue. No burring was necessary due to healthy bleeding of each bony surface, including the posterior surface of the transverse processes and the lateral surface of the pars interarticularis at each level. This completed the posterolateral arthrodesis. Again, a Valsalva maneuver up to 40mmHg ensured a water-tight, excellent dural repair. The durotomy repair site was covered with 3 strips of SurgiCel and then encased in DuraSeal. Throughout the case, the wound was irrigated with normal saline solution to keep the exposed soft tissues hydrated. The retractors were released every 15 to 20 minutes to enable adequate blood flow to the paraspinal muscles. These muscles were gently massaged upon release of the retractors to further facilitate blood flow. At the end of the procedure, fragmented and compromised paraspinal muscle was superficially debrided. The dura was inspected and was completely intact. Closure: The paraspinal muscles and lumbodorsal fascia overlying the paraspinal musculature was closed in the midline using #1 Vicryl sutures in simple interrupted fashion. Despite excellent hemostasis, a deep HemoVac drain was utilized. The wound was repeatedly thoroughly irrigated with normal saline solution. The subcutaneous tissues were closed using #1 Vicryl sutures. The skin was closed using a running 2-0 Biosyn absorbable suture. This completed a complex, 4-layered wound closure of approximately 45cm. The skin was then painted with benzoin and Steri-Strips were applied perpendicular to the incision. A Primapore adhesive Telfa island dressing was applied over the Steri-Strips and a sterile, compressive dressing was applied using 4x4 gauze pads. The skin was painted with DuraPrep. The wound was then sealed with adhesive Ioban. Final AP & lateral fluoroscopic analysis revealed a T11-S1 instrumentation was intact & place. The L2-L3, L4-L5, & L5-S1 disc heights were reconstituted with visibly patent neuroforaminae. There was no fluoroscopic evidence of retained sponges or needles. The sponge and needle counts were correct at the end of the case and I, the attending surgeon, was present and scrubbed throughout the case. The patient was transferred to a hospital bed. All neural monitoring leads were removed. The patient was then transferred to the recovery room in stable condition, as per the anesthesia team, having tolerated the procedure well. Overall comment: Operation went extremely well with no complications. All appropriate goals were achieved in the execution of this operative event. Rex Paredes MD [id number] MTDD
--- NOTE | 2019-03-10 12:38 | ECHO ---
Version: 1 Name: JOSÉ ANTONIO WELLS Exam: Adult Echocardiogram Study Date: 03/10/2019, 11:14 AM Age: 53 Years MMode/2D Measurements & Calculations IVSd: 1.07 cm LVIDs: 3.1 cm LVIDd: 3.7 cm LVPWd: 1.00 cm ACS: 2.12 cm LVOT diam: 2.11 cm Doppler Measurements & Calculations MV E max tj: 60.2 cm/sec Med E/e': 9.0 MV A max tj: 97.2 cm/sec Med Peak E' Tj: 6.7 cm/sec MV E/A: 0.62 Lat E/e': 9.0 Lat Peak E' Tj: 6.7 cm/sec Ao max P.9 mmHg CRYSTAL(I,D): 2.7 cm Ao mean P.9 mmHg LV V1 mean: 50.4 cm/sec Ao V2 max: 111.2 cm/sec LV V1 mean P.27 mmHg Procedure A complete two-dimensional transthoracic echocardiogram was performed (2D, M-mode, Doppler and color flow Doppler). The patient was in a tachycardic rhythm during the exam. Left Ventricle The left ventricular size, thickness and function are normal. Ejection Fraction = 65%. E/A reversal consistent with but not diagnostic of poor LV compliance. The left ventricular wall motion is normal . Right Ventricle The right ventricle is normal in size and function. Atria Normal left and right atrial size and function. Mitral Valve The mitral valve is normal in structure and function. There is trace mitral regurgitation. Tricuspid Valve The tricuspid valve is not well visualized, but is grossly normal. There is trace tricuspid regurgit ation. There was insufficient TR detected to calculate RV systolic pressure. Aortic Valve The aortic valve is normal in structure and function. Pulmonic Valve The pulmonic valve is not well visualized. Great Vessels The aortic root is normal size. Pericardium/Pleura There is no pericardial effusion. There is no pleural effusion. Summary Statements The patient was in a tachycardic rhythm during the exam. The left ventricular size, thickness and function are normal Ejection Fraction = 65%. The right ventricle is normal in size and function. Normal left and right atrial size and function. There is trace mitral regurgitation. There is trace tricuspid regurgitation. There was insufficient TR detected to calculate RV systolic pressure. MD Judson Heath 03/10/2019, 11:38 AM Ordering Physician: LISA CAMACHO Referring Physician: Rex Paredes Performed By: Rossy Schaefer
--- NOTE | 2019-03-10 13:28 | PN ---
Teaching Attending Note Name of Resident: Aaliyah Sales ATTENDING PHYSICIAN STATEMENT I saw and evaluated the patient. I reviewed the resident's note and discussed the case with the resident. I agree with the resident's findings and plan as documented. SUBJECTIVE: Pt seen and examined in the ICU. Still tachycardic with some back pain. Denies shortness of breath. OBJECTIVE: Vital Signs Period Temp Pulse Resp BP Sys/Augustin Pulse Ox Last 24 Hr 97.8 F-99.1 F 104-126 4-23 105-138/68-92 96-100 Intake & Output 03/07/19 03/08/19 03/09/19 03/10/19 23:59 23:59 23:59 23:59 Intake Total 4800 1787 Output Total 2700 700 Balance 2100 1087 Gen: NAD at rest Heart: RRR Lung: decreased breath sounds at the bases Abd: soft, nontender Ext: no edema CBC, BMP 03/10/19 05:20 03/10/19 05:20 Active Medications Acetaminophen (Ofirmev Injection -) 1,000 mg IVPB PRN PRN PRN Reason: If narcotics are ineffective Stop: 03/10/19 15:53 Last Admin: 03/10/19 03:59 Dose: 1,000 mg Heparin Sodium (Porcine) (Heparin -) 1,000 unit IVPUSH PRN PRN PRN Reason: Heparin Last Admin: 03/10/19 08:40 Dose: 1,000 unit Heparin Sodium (Porcine) (Heparin -) 5,000 unit IVPUSH PRN PRN PRN Reason: Heparin Hydromorphone HCl (Dilaudid Press Breaker -) 10 mg UNDERWEAR CUTTER UNDERWEAR CUTTER KEYSHA; Protocol Stop: 03/12/19 16:02 Last Admin: 03/09/19 16:22 Dose: 10 mg Lactated Ringer's (Lactated Ringers Solution) 1,000 mls @ 125 mls/hr IV ASDIR KEYSHA Last Admin: 03/09/19 16:14 Dose: 125 mls/hr Heparin Sodium/Dextrose (Heparin Infusion -) 25,000 units in 500 mls @ 20 mls/ hr IVPB TITR KEYSHA; Protocol Last Titration: 03/10/19 08:19 Dose: 1,100 units/hr, 22 mls/hr Ondansetron HCl (Zofran Injection) 4 mg IVPUSH Q6H PRN PRN Reason: NAUSEA AND/OR VOMITING Ondansetron HCl (Zofran Injection) 4 mg IVPUSH Q6H PRN PRN Reason: NAUSEA AND/OR VOMITING Oxycodone HCl (Roxicodone -) 10 mg PO Q4H PRN PRN Reason: PAIN LEVEL 6-10 Stop: 03/10/19 15:59 Promethazine HCl (Phenergan Injection -) 12.5 mg IVPUSH Q6H PRN PRN Reason: NAUSEA-FOR RESCUE AFTER 15 MIN Triamterene/HCTZ (Dyazide 25/37.5mg) 1 cap PO DAILY KEYSHA Last Admin: 03/10/19 09:38 Dose: 1 cap ASSESSMENT AND PLAN: Lumbar Stenosis with Radiculopathy and Neurogenic Claudication s/p L1-S1 Laminectomies/Osteotomies/Posterior Instrumentation/PLIF/ Biomechanical Devices Acute Pulmonary Emboli - continue anticoagulation - monitor H/H - pain control - incentive spirometry - PO when flatus - d/c [place] when OOB - ICU monitoring
[2019-03-10] MEDS: LACTATED RINGERS SOLUTION 1,000 ML IV SCH ×2 (17:26→19:22)
[2019-03-10] MEDS: HYDROmorphone *PCA* 10MG/50ML DISP.SYRIN PCA SCH (17:27)
[2019-03-10] MEDS: HEPARIN INFUSION - 25,000 UNITS/500 ML INFUS.BAG IVPB SCH (19:22)
--- NOTE | 2019-03-10 19:52 | PN ---
Progress Note, Physician Chief Complaint: SOB, back pain - Current Medication List Current Medications: Active Medications Heparin Sodium (Porcine) (Heparin -) 1,000 unit IVPUSH PRN PRN PRN Reason: Heparin Last Admin: 03/10/19 17:48 Dose: 1,000 unit Heparin Sodium (Porcine) (Heparin -) 5,000 unit IVPUSH PRN PRN PRN Reason: Heparin Hydromorphone HCl (Dilaudid Resident Program Specialist -) 10 mg TOPOGRAPHIC COMPUTATOR TOPOGRAPHIC COMPUTATOR KEYSHA; Protocol Stop: 03/12/19 16:02 Last Admin: 03/10/19 17:27 Dose: 10 mg Lactated Ringer's (Lactated Ringers Solution) 1,000 mls @ 125 mls/hr IV ASDIR KEYSHA Last Admin: 03/10/19 19:22 Dose: 125 mls/hr Heparin Sodium/Dextrose (Heparin Infusion -) 25,000 units in 500 mls @ 20 mls/ hr IVPB TITR KEYSHA; Protocol Last Admin: 03/10/19 19:22 Dose: 1,200 units/hr, 24 mls/hr Ondansetron HCl (Zofran Injection) 4 mg IVPUSH Q6H PRN PRN Reason: NAUSEA AND/OR VOMITING Last Admin: 03/10/19 14:28 Dose: 4 mg Ondansetron HCl (Zofran Injection) 4 mg IVPUSH Q6H PRN PRN Reason: NAUSEA AND/OR VOMITING Promethazine HCl (Phenergan Injection -) 12.5 mg IVPUSH Q6H PRN PRN Reason: NAUSEA-FOR RESCUE AFTER 15 MIN Triamterene/HCTZ (Dyazide 25/37.5mg) 1 cap PO DAILY [facility] Last Admin: 03/10/19 09:38 Dose: 1 cap - Objective Vital Signs: Vital Signs Temperature 99 F 03/10/19 16:00 Pulse Rate 117 H 03/10/19 18:00 Respiratory Rate 14 03/10/19 18:00 Blood Pressure 113/94 03/10/19 18:00 O2 Sat by Pulse Oximetry (%) 98 03/10/19 18:00 Constitutional: Yes: Well Nourished Eyes: Yes: WNL HENT: Yes: WNL Neck: Yes: WNL Cardiovascular: Yes: WNL, Tachycardia Respiratory: Yes: WNL, Diminished Gastrointestinal: Yes: WNL Genitourinary: Yes: WNL Musculoskeletal: Yes: Back Pain Extremities: Yes: WNL Edema: No Integumentary: Yes: WNL Wound/Incision: Yes: Clean/Dry, Well Approximated Neurological: Yes: WNL ...Motor Strength: WNL Labs: CBC, BMP 03/10/19 05:20 03/10/19 05:20 INR, PTT INR 1.15 (0.83-1.09) H 03/10/19 05:20 Assessment/Plan 53 y/o M with no significant PMH who was experiencing chronic back and leg pain and was brought to the hospital for surgical repair of thoracolumosacral disease. -S/P: 1. L1, L2, L3, L4, L5, S1 laminectomies. 2. L1, L2, L3, L4, L5, S1 osteotomies (facetectomies). 3. L4-L5 Ayers Degroot Osteotomies. 4. T11-S1 posterior instrumentation. 5. L2-L3, L4-L5, L5-S1 discectomies. 6. L2-L3, L4- L5, L5-S1 posterior lumbar interbody fusion. 7. L2-L3, L4-L5, L5-S1 insertion biomechanical devices. 8. T11-S1 posterolateral arthrodesis. 9. Durotomy repair. 10. Bone allograft. 11. Bone autograft. 12. Bone marrow aspiration. 13. Complex wound closure (30cm) -cont pain management. incentive spirometry. -diagnosed with acute PE: on heparin drip. hemaotology eval requested r/o clotting disorder. -leucocytosis, likely from PE, r/o infectious etiology. -HTN: on dyazide. -GI, DVT prophylaxis. -cont IV fluids for rhabdomyolysis. urine RBC's is actually myoglobin ,not blood. no need for urology eval. -oral diet. aspiration precautions -assessment and plan discussed with pt and medical staff. will follow up
--- NOTE | 2019-03-11 00:13 | PN ---
Progress Note (short form) - Note Progress Note: 50M s/p L1-S1 decompression & T11-S1 posterolateral instrumented arthrodesis POD #1. Pt. has confirmed post-operative pulmonary embolism; receiving therapeutic anticoagulation. Pain well controlled. Pt. denies overnight history of headaches, chest pain, shortness of breath, nausea, vomiting, chills, & sweats. (+) Lambert; (-) Flatus; (-) BM. (+) Stood up with PT today; no positional headaches. All labs and vitals reviewed. PE: AAO x 3, NAD. L-Spine: Incision, dressing C/D/I. Drain intact & in place. B/L LE M: L2-S1 intact, minimum 3/5. RLE S: L2-L3, L5-S1 2/2; L4 1/2. LLE S: L2-S1 2/2. 50M s/p L1-S1 decompression & T11-S1 posterolateral instrumented arthrodesis POD #1. -Admit to ICU post-op. -Pain control: patient received pre-op TLIP block w/Exparel; OK to use FINANCIAL [employer] OFFICER if needed; transition to oral analgesia post-op; NO NSAID's. -DVT PPx: -Mechanical only: BEAU's, SCD's. -Chemical: therapeutic a/c as myesha ICU/hospitalist teams. -Incentive spirometry q15 min. -NPO until flatus. -Lambert care; d/c when ambulating. -PT/OT/Rehab, OOB. -WBAT B/L LE. -Raised toilet seat. -No bending, lifting (>5 lbs), or twisting for 9-12 months. -Care per ICU & medical hospitalist Dr. Henson. -Discharge planning: f/u 7-10 days after discharge at [facility] office; call for appointment; . -Will follow. Rex Paredes MD (Orthopaedic Surgery).
[2019-03-11 06:05] LABS: HEMATOCRIT 27.9 % (35.4-49); HEMOGLOBIN 9.7 GM/dL (11.7-16.9); MCH 29.9 pg (25.7-33.7); MCHC 34.7 g/dl (32.0-35.9); MEAN CELL VOLUME 86.2 fl (80-96); MEAN PLT VOLUME 9.4 fl (7.5-11.1); PLATELET COUNT 131 K/MM3 (134-434); RBC 3.24 M/mm3 (4.00-5.60); RDW 13.2 % (11.9-15.9); WHITE BLOOD COUNT 13.8 K/mm3 (4.0-10.0)
[2019-03-11] MEDS ORDERED: HYDROmorphone *PCA* 10MG/50ML DISP.SYRIN ONE ×2 (06:10→22:35)
[2019-03-11] MEDS: HYDROmorphone *PCA* 10MG/50ML DISP.SYRIN PCA SCH ×2 (06:13→22:39)
[2019-03-11] MEDS ORDERED: CYCLOBENZAPRINE HCL 5 MG TABLET PO ONE (06:22)
[2019-03-11 06:38] LABS: BLOOD UREA NITROGEN 17.8 mg/dL (7-18); CALCIUM 7.8 mg/dL (8.5-10.1); CREATININE 0.7 mg/dL (0.55-1.3); MAGNESIUM 2.3 mg/dL (1.8-2.4); POTASSIUM 4.1 mmol/L (3.5-5.1)
[2019-03-11] MEDS ORDERED: NAPH,MB-DB/K PH,MBDB POWDER PACKET PO ONE (07:29)
[2019-03-11] MEDS: LACTATED RINGERS SOLUTION 1,000 ML IV SCH (08:32)
[2019-03-11] MEDS: HEPARIN NA (PORCINE) 5,000 UNITS/ML 1ML VIAL IVPUSH PRN ×2 (08:33→17:34)
[2019-03-11] MEDS: DOCUSATE SODIUM 100 MG CAPSULE (FP) PO PRN (08:38)
--- NOTE | 2019-03-11 08:39 | PN ---
Physical Exam: SUBJECTIVE: Patient seen and examined at bedside- no acute events overnight; patient states that he was having thigh pain overnight and required flexeril which helped relieve his pain; he still has not passed gas or had any bowel movements; required MANUFACTURING LEAD multiple times overnight; denies CP/SOB/N/v OBJECTIVE: Vital Signs Period Temp Pulse Resp BP Sys/Augustin Pulse Ox Last 24 Hr 97.3 F-99 F 101-118 13-21 113-167/74-102 89-104 GENERAL: The patient is awake, alert, and fully oriented, in no acute distress. EYES:PEERLA: EOMI; no scleral icterus ENT: Ears normal, nares patent, oropharynx clear without exudates, moist mucous membranes. NECK: Trachea midline, full range of motion, supple. LUNGS: Breath sounds equal, clear to auscultation bilaterally, no wheezes, no crackles, no accessory muscle use. HEART: Regular rate and rhythm, S1, S2 without murmur, rub or gallop. ABDOMEN: Soft, nontender, nondistended, normoactive bowel sounds, no guarding, no rebound, no hepatosplenomegaly, no masses. EXTREMITIES: 2+ pulses, warm, well-perfused, no edema. NEUROLOGICAL: Cranial nerves II through XII grossly intact. Normal speech, gait not observed. PSYCH: Normal mood, normal affect. SKIN: Warm, dry, normal turgor, no rashes or lesions noted Laboratory Results - last 24 hr 03/10/19 03/10/19 03/11/19 16:30 22:50 05:27 WBC 13.8 H RBC 3.24 L Hgb 9.7 L Hct 27.9 L D MCV 86.2 MCH 29.9 MCHC 34.7 RDW 13.2 Plt Count 131 L D MPV 9.4 PTT (Actin FS) 49.0 H 50.3 H Sodium Potassium Chloride Carbon Dioxide Anion Gap BUN Creatinine Est GFR (CKD-EPI)AfAm Est GFR (CKD-EPI)NonAf Random Glucose Calcium Phosphorus Magnesium 03/11/19 03/11/19 05:27 05:27 WBC RBC Hgb Hct MCV MCH MCHC RDW Plt Count MPV PTT (Actin FS) 49.0 H Sodium 140 Potassium 4.1 Chloride 103 Carbon Dioxide 32 Anion Gap 5 L BUN 17.8 Creatinine 0.7 Est GFR (CKD-EPI)AfAm 124.00 Est GFR (CKD-EPI)NonAf 106.99 Random Glucose 126 H Calcium 7.8 L Phosphorus 2.0 L Magnesium 2.3 Active Medications Generic Name Dose Route Start Last Admin Trade Name Freq PRN Reason Stop Dose Admin Docusate Sodium 100 mg 03/11/19 07:50 03/11/19 08:38 Colace - PO 100 mg BID PRN Administration CONSTIPATION Heparin Sodium (Porcine) 1,000 unit 03/09/19 20:42 03/11/19 08:33 Heparin - IVPUSH 1,000 unit PRN PRN Administration Heparin Heparin Sodium (Porcine) 5,000 unit 03/09/19 20:42 Heparin - IVPUSH PRN PRN Heparin Hydromorphone HCl 10 mg 03/09/19 16:15 03/11/19 06:13 Dilaudid Shuttle Filler - MANUFACTURING LEAD 03/12/19 16:02 10 mg MANUFACTURING LEAD KEYSHA Administration Protocol Heparin Sodium/Dextrose 25,000 units in 500 mls @ 20 mls/hr 03/09/19 20:45 08:07 Heparin Infusion - IVPB 1,300 units/hr TITR KEYSHA 26 mls/hr Titration Protocol 1,000 UNITS/HR Lactated Ringer's 1,000 mls @ 75 mls/hr 03/11/19 08:00 03/11/19 08:32 Lactated Ringers Solution IV 75 mls/hr ASDIR KEYSHA Administration Ondansetron HCl 4 mg 03/09/19 15:54 03/10/19 14:28 Zofran Injection IVPUSH 4 mg Q6H PRN Administration NAUSEA AND/OR VOMITING Ondansetron HCl 4 mg 03/09/19 16:00 Zofran Injection IVPUSH Q6H PRN NAUSEA AND/OR VOMITING Promethazine HCl 12.5 mg 03/09/19 16:00 Phenergan Injection - IVPUSH Q6H PRN NAUSEA-FOR RESCUE AFTER 15 MIN Senna 1 tab 03/11/19 22:00 Senna - PO HS KEYSHA Triamterene/HCTZ 1 cap 03/10/19 10:00 03/10/19 09:38 Dyazide 25/37.5mg PO 1 cap DAILY KEYSHA Administration ASSESSMENT/PLAN: 53 y.o male with PMH of HTN presented for worsening lower back pain and right toe numbness/tingling who underwent T11-S11 laminectomies, osteotomies, discectomies, fusions, arthroodesis who was found to have a R lower lobe PE #Neuro stable; no issues still having some right foot numbness from before surgery -will monitor #Cardio patient has history of HTN -c/w home meds -given that patient was found to have PE - -echo done; showing no evidence of right heart strain -monitor hemodynamics # Heme patient found to have right pulmonary artery PE; no risk factors (no smoking history, recent travel, fam history) -currently on Heparin drip -monitor for signs of bleeding: hgb this AM 9.7 -will send FOBT and repeat CBC this afternoon -monitor PTT; CBC daily (PTT this AM 49) -echo done: normal -LE dopplers done showing no DVT -heme consulted #MSK POD #2 T11-S11 laminectomies/discectomies/fusions/arthrodesis -Dilaudid MANUFACTURING LEAD for pain; Oxy 5/10 -Zofran PRN for nausea -OOB -NPO until flatus -LR @75mls/hr -incentive spirometer -follow Dr. Paredes/Sixto recommendations -colace/senna for bowel regimen; if need be will add miralax #Pulmonary patient found to have PE in prox to mid right lower lobe pulmonary artery -patient currently on Heparin drip -monitor PTT/CBC;: PTT this AM 49 -monitor O2 sats and hemodynamics #Renal patient has rhabdo; -CPK downtrending; 2900 this AM -will continue to monitor -c/w LR @75mls/hr F/E/N LR @75mls/hr monitor electrolytes NPO until flatus DVT PPX: heparin drip Problem List - Problems (1) Hx of spinal surgery Code(s): Z98.890 - OTHER SPECIFIED POSTPROCEDURAL STATES (2) Pulmonary embolism Code(s): I26.99 - OTHER PULMONARY EMBOLISM WITHOUT ACUTE COR PULMONALE (3) HTN (hypertension) Code(s): I10 - ESSENTIAL (PRIMARY) HYPERTENSION Visit type - Emergency Visit Emergency Visit: Yes ED Registration Date: 03/09/19 Care time: The patient presented to the Emergency Department on the above date and was hospitalized for further evaluation of their emergent condition. - New Patient This patient is new to me today: No - Critical Care Critical Care patient: Yes Total Critical Care Time (in minutes): 35 Critical Care Statement: The care of this patient involved high complexity decision making to prevent further life threatening deterioration of the patient 's condition and/or to evaluate & treat vital organ system(s) failure or risk of failure.
[2019-03-11] MEDS ORDERED: PT OWN MED DRAWER 7, Y5N ONE (09:25)
[2019-03-11] MEDS: TRIAMTERENE AND HCTZ - 37.5 MG/25 MG CAPSULE PO SCH (09:28)
[2019-03-11] MEDS ORDERED: POLYETHYLENE GLYCOL 3350 119 GM BTL PO ONE (11:43)
--- NOTE | 2019-03-11 11:55 | PN ---
Teaching Attending Note Name of Resident: Aaliyah Sales ATTENDING PHYSICIAN STATEMENT I saw and evaluated the patient. I reviewed the resident's note and discussed the case with the resident. I agree with the resident's findings and plan as documented. SUBJECTIVE: Pt seen and examined in the ICU. Denies shortness of breath or chest pain but remains tachycardic. Saturating well on nasal cannula. c/o constipation with lower abdominal pain. No flatus. Also with left leg thigh pain. OBJECTIVE: CBC, BMP 03/11/19 05:27 03/11/19 05:27 Active Medications Docusate Sodium (Colace -) 100 mg PO BID PRN PRN Reason: CONSTIPATION Last Admin: 03/11/19 08:38 Dose: 100 mg Heparin Sodium (Porcine) (Heparin -) 1,000 unit IVPUSH PRN PRN PRN Reason: Heparin Last Admin: 03/11/19 08:33 Dose: 1,000 unit Heparin Sodium (Porcine) (Heparin -) 5,000 unit IVPUSH PRN PRN PRN Reason: Heparin Hydromorphone HCl (Dilaudid Dry Goods Inspector -) 10 mg COUNSELING SERVICES MANAGER COUNSELING SERVICES MANAGER KEYSHA; Protocol Stop: 03/12/19 16:02 Last Admin: 03/11/19 06:13 Dose: 10 mg Heparin Sodium/Dextrose (Heparin Infusion -) 25,000 units in 500 mls @ 20 mls/ hr IVPB TITR KEYSHA; Protocol Last Titration: 03/11/19 08:07 Dose: 1,300 units/hr, 26 mls/hr Lactated Ringer's (Lactated Ringers Solution) 1,000 mls @ 75 mls/hr IV ASDIR KEYSHA Last Admin: 03/11/19 08:32 Dose: 75 mls/hr Ondansetron HCl (Zofran Injection) 4 mg IVPUSH Q6H PRN PRN Reason: NAUSEA AND/OR VOMITING Last Admin: 03/10/19 14:28 Dose: 4 mg Ondansetron HCl (Zofran Injection) 4 mg IVPUSH Q6H PRN PRN Reason: NAUSEA AND/OR VOMITING Promethazine HCl (Phenergan Injection -) 12.5 mg IVPUSH Q6H PRN PRN Reason: NAUSEA-FOR RESCUE AFTER 15 MIN Senna (Senna -) 1 tab PO HS KEYSHA Simethicone (Mylicon -) 80 mg PO QID PRN PRN Reason: GAS Triamterene/HCTZ (Dyazide 25/37.5mg) 1 cap PO DAILY KEYSHA Last Admin: 03/11/19 09:28 Dose: 1 cap ASSESSMENT AND PLAN: Lumbar Stenosis with Radiculopathy and Neurogenic Claudication s/p L1-S1 Laminectomies/Osteotomies/Posterior Instrumentation/PLIF/ Biomechanical Devices Acute Pulmonary Emboli - continue anticoagulation - monitor H/H - pain control - incentive spirometry - PO when flatus - bowel regimen - d/c [place] when OOB - ICU monitoring
[2019-03-11] MEDS: SIMETHICONE 80 MG TAB.CHEW (FP) PO PRN (12:56)
--- NOTE | 2019-03-11 13:15 | PATH ---
Surgical Pathology Report Patient Name: JOSÉ ANTONIO WELLS [facility]. Rec. #: [id number] /Age/Gender: 1965 (Age: 53) / M Account: [id number] Location: [facility] Taken: 03/09/2019 Received: 03/10/2019 Reported: 03/11/2019 Physicians: Rex Paredes M.D. Specimen(s) Received DISC L2-L3, L3-L4, L4-L5 Clinical History Intervertebral disc disorder Final Diagnosis INTERVERTEBRAL DISC, L2-3 WITH L3-4 AND L4-5, PARTIAL EXCISION: PORTIONS OF INTERVERTEBRAL DISC, AND SMALL FRAGMENTS OF BONE. Electronically Signed Rosendo Rivas M.D. Gross Description Received in formalin labeled "L2/3, L3/4, L4/5 disc," is a 4.5 x 4.0 x 0.4 cm aggregate of rodriguez fragments of fibrocartilaginous tissue. A personal financial representative portion is submitted in one cassette. /03/10/2019 saudi03/10/2019
--- NOTE | 2019-03-11 13:19 | CONSULT ---
Consultation: REQUESTING PROVIDER: CONSULT REQUEST: We have been asked to medically evaluate this patient for (PE). HISTORY OF PRESENT ILLNESS: The pt is a 53 year old male with PMH of chronic back pain since 2009, admitted to ICU s/p T11-S1 laminectomies, osteotomies, discectomies, fusion, insertion of biomechanical devices, arthrodesis. Hem'Onc was consulted for new onset PE. Today the patient is still complaining of back pain and left leg pain that started last night. He also reports constipation and bloating. He denies SOB, chest pain, palpitations. He never had PE, blood clot in legs, no family history of PE. PSH: right knee SH: alcohol 3 times/week, no drugs, no smoking, , healthy child FH: no PE in family, Father DM, mother: breast Ca REVIEW OF SYSTEMS: CONSTITUTIONAL: Absent: fever, chills, diaphoresis, generalized weakness HEENT: Absent: rhinorrhea, nasal congestion, visual changes CARDIOVASCULAR: Absent: chest pain, syncope, palpitations, irregular heart rate, lightheadedness , peripheral edema RESPIRATORY: Absent: cough, shortness of breath, orthopnea, wheezing GASTROINTESTINAL: constipation Absent: abdominal pain, abdominal distension, nausea, vomiting, diarrhea, GENITOURINARY: Absent: dysuria, frequency, urgency, hesitancy, hematuria, flank pain, genital pain MUSCULOSKELETAL: back pain, left leg pain Absent: myalgia, arthralgia, joint swelling, neck pain SKIN: Absent: rash, itching, pallor HEMATOLOGIC/IMMUNOLOGIC: Absent: easy bleeding, easy bruising, lymphadenopathy, frequent infections ENDOCRINE: Absent: unexplained weight gain, unexplained weight loss NEUROLOGIC: Absent: headache, focal weakness or paresthesias, dizziness PSYCHIATRIC: Absent: anxiety, depression PHYSICAL EXAMINATION Vital Signs - 24 hr 03/10/19 03/10/19 03/10/19 14:00 16:00 17:27 Temperature 99 F Pulse Rate 113 H 113 H 113 H Respiratory 14 14 14 Rate Blood Pressure 134/84 122/84 140/84 O2 Sat by Pulse 96 96 96 Oximetry (%) 03/10/19 03/10/19 03/10/19 18:00 19:00 20:00 Temperature Pulse Rate 117 H 114 H 115 H Respiratory 14 15 19 Rate Blood Pressure 113/94 131/87 146/95 O2 Sat by Pulse 98 89 L Oximetry (%) 03/10/19 03/10/19 03/10/19 21:00 21:02 22:00 Temperature Pulse Rate 118 H 112 H Respiratory 15 14 14 Rate Blood Pressure 132/94 158/85 O2 Sat by Pulse 98 97 Oximetry (%) 03/10/19 03/11/19 03/11/19 23:00 00:00 01:00 Temperature Pulse Rate 112 H 114 H 112 H Respiratory 13 14 17 Rate Blood Pressure 152/84 167/89 145/74 O2 Sat by Pulse 98 Oximetry (%) 03/11/19 03/11/19 03/11/19 02:00 04:00 05:00 Temperature 98.8 F Pulse Rate 109 H 112 H 109 H Respiratory 14 21 H 19 Rate Blood Pressure 157/102 H 150/87 166/96 O2 Sat by Pulse 100 104 H Oximetry (%) 03/11/19 03/11/19 03/11/19 06:00 06:45 08:00 Temperature 97.3 F L 97.8 F Pulse Rate 101 H 102 H Respiratory 15 18 Rate Blood Pressure 155/96 157/96 O2 Sat by Pulse 90 L 99 Oximetry (%) 03/11/19 03/11/19 03/11/19 09:00 10:00 12:00 Temperature Pulse Rate 102 H 101 H Respiratory 20 16 16 Rate Blood Pressure 145/62 161/96 O2 Sat by Pulse 100 98 100 Oximetry (%) GENERAL: Awake, alert, and fully oriented, in no acute distress, lying in bed. HEAD: Normal with no signs of trauma. EYES: Extraocular movements intact, sclera anicteric, conjunctiva clear. EARS, NOSE, THROAT: Oropharynx clear without exudates. Moist mucous membranes. NECK: Normal range of motion, supple without lymphadenopathy. LUNGS: Diminished bilaterally. No wheezes, and no crackles. No accessory muscle use. HEART: Regular rate and rhythm, normal S1 and S2 without murmur, rub or gallop. ABDOMEN: Obese, soft, nontender, +distended, hypooactive bowel sounds, no guarding, no rebound, no masses. UPPER EXTREMITIES: No peripheral edema. LOWER EXTREMITIES: 2+ pulses. No peripheral edema. NEUROLOGICAL: non facial symmetry, normal speech, gait not assessed. PSYCHIATRIC: Cooperative. Good eye contact. Appropriate mood and affect. SKIN: Warm, dry, normal turgor, no rashes or lesions noted. TESTICLES: nl, no masses, no skin rash Laboratory Results - last 24 hr 03/10/19 03/10/19 03/11/19 16:30 22:50 05:27 WBC 13.8 H RBC 3.24 L Hgb 9.7 L Hct 27.9 L D MCV 86.2 MCH 29.9 MCHC 34.7 RDW 13.2 Plt Count 131 L D MPV 9.4 PTT (Actin FS) 49.0 H 50.3 H Sodium Potassium Chloride Carbon Dioxide Anion Gap BUN Creatinine Est GFR (CKD-EPI)AfAm Est GFR (CKD-EPI)NonAf Random Glucose Calcium Phosphorus Magnesium Creatine Kinase Creatine Kinase Index CK-MB (CK-2) 03/11/19 03/11/19 05:27 05:27 WBC RBC Hgb Hct MCV MCH MCHC RDW Plt Count MPV PTT (Actin FS) 49.0 H Sodium 140 Potassium 4.1 Chloride 103 Carbon Dioxide 32 Anion Gap 5 L BUN 17.8 Creatinine 0.7 Est GFR (CKD-EPI)AfAm 124.00 Est GFR (CKD-EPI)NonAf 106.99 Random Glucose 126 H Calcium 7.8 L Phosphorus 2.0 L Magnesium 2.3 Creatine Kinase 2566 H Creatine Kinase Index 0.5 CK-MB (CK-2) 14.1 H Active Medications Generic Name Dose Route Start Last Admin Trade Name Freq PRN Reason Stop Dose Admin Docusate Sodium 100 mg 03/11/19 07:50 03/11/19 08:38 Colace - PO 100 mg BID PRN Administration CONSTIPATION Heparin Sodium (Porcine) 1,000 unit 03/09/19 20:42 03/11/19 08:33 Heparin - IVPUSH 1,000 unit PRN PRN Administration Heparin Heparin Sodium (Porcine) 5,000 unit 03/09/19 20:42 Heparin - IVPUSH PRN PRN Heparin Hydromorphone HCl 10 mg 03/09/19 16:15 03/11/19 06:13 Dilaudid Inspector Raw Quartz - COSTUMED CHARACTER 03/12/19 16:02 10 mg COSTUMED CHARACTER KEYSHA Administration Protocol Heparin Sodium/Dextrose 25,000 units in 500 mls @ 20 mls/hr 03/09/19 20:45 08:07 Heparin Infusion - IVPB 1,300 units/hr TITR KEYSHA 26 mls/hr Titration Protocol 1,000 UNITS/HR Lactated Ringer's 1,000 mls @ 75 mls/hr 03/11/19 08:00 03/11/19 08:32 Lactated Ringers Solution IV 75 mls/hr ASDIR KEYSHA Administration Ondansetron HCl 4 mg 03/09/19 15:54 03/10/19 14:28 Zofran Injection IVPUSH 4 mg Q6H PRN Administration NAUSEA AND/OR VOMITING Ondansetron HCl 4 mg 03/09/19 16:00 Zofran Injection IVPUSH Q6H PRN NAUSEA AND/OR VOMITING Promethazine HCl 12.5 mg 03/09/19 16:00 Phenergan Injection - IVPUSH Q6H PRN NAUSEA-FOR RESCUE AFTER 15 MIN Senna 1 tab 03/11/19 22:00 Senna - PO HS KEYSHA Simethicone 80 mg 03/11/19 11:41 03/11/19 12:56 Mylicon - PO 80 mg QID PRN Administration GAS Triamterene/HCTZ 1 cap 03/10/19 10:00 03/11/19 09:28 Dyazide 25/37.5mg PO 1 cap DAILY KEYSHA Administration ASSESSMENT/PLAN: The pt is a 53 year old male with PMH of chronic back pain since 2009, admitted to ICU s/p T11-S1 laminectomies, hem/onc consulted for PE. Plan: We believe that PE was provoked by his surgery. Please continue AC, hemodynamic monitoring. We recommend age related cancer screening. It may include CT chest/abdomen/ pelvis, colonoscopy. As outpatient we recommend thrombophilia workup. It includes: homocysteine, MTHFR, factor 5 Leiden, Protrombin gene 2, ALC, b2 glycoprotein, anticardiolipin. Factor c,s, AT3 will not be indicated as it may be lowered due to anticoagulation. Dispo: We will continue to follow the patient. Thank you for this consultative opportunity. Problem List - Problems (1) Hx of spinal surgery Code(s): Z98.890 - OTHER SPECIFIED POSTPROCEDURAL STATES (2) Pulmonary embolism Code(s): I26.99 - OTHER PULMONARY EMBOLISM WITHOUT ACUTE COR PULMONALE Visit type - Emergency Visit Emergency Visit: Yes ED Registration Date: 03/09/19 Care time: The patient presented to the Emergency Department on the above date and was hospitalized for further evaluation of their emergent condition. - New Patient This patient is new to me today: Yes Date on this admission: 03/11/19 - Critical Care Critical Care patient: Yes Total Critical Care Time (in minutes): 40 Critical Care Statement: The care of this patient involved high complexity decision making to prevent further life threatening deterioration of the patient 's condition and/or to evaluate & treat vital organ system(s) failure or risk of failure.
[2019-03-11 15:49] LABS: HEMATOCRIT 26.8 % (35.4-49); HEMOGLOBIN 9.2 GM/dL (11.7-16.9); MCH 29.7 pg (25.7-33.7); MCHC 34.2 g/dl (32.0-35.9); MEAN CELL VOLUME 86.9 fl (80-96); MEAN PLT VOLUME 9.4 fl (7.5-11.1); PLATELET COUNT 137 K/MM3 (134-434); RBC 3.09 M/mm3 (4.00-5.60); RDW 13.2 % (11.9-15.9); WHITE BLOOD COUNT 13.7 K/mm3 (4.0-10.0)
--- NOTE | 2019-03-11 19:24 | PN ---
Teaching Attending Note Name of Resident: Gavi Dover ATTENDING PHYSICIAN STATEMENT I saw and evaluated the patient. I reviewed the resident's note and discussed the case with the resident. I agree with the resident's findings and plan as documented. SUBJECTIVE: Patient seen and examined No significant SOB Complains of numbness of right knee and "tingling" behind left knee. Both symptoms apparently present pre-op. C/o constipation, S/p L1-S1 Laminectomies/Osteotomies/ Development of acute pumonary emboli ? provoked without obvious cause No family history of strokes or VTE Mother with history of breast ca in 60's Last Vital Signs Temp Pulse Resp BP Pulse Ox 98 F 100 H 18 147/88 100 03/11/19 16:00 03/11/19 18:00 03/11/19 18:00 03/11/19 18:00 03/11/19 18:00 HEENT: MAX, EOM Intact Oropharynx: No thrush, No mucositis Cor: sinus tachycardia Lungs: Clear anteriorly Abd: Soft, Normal bowel sounds, No organomegaly Ext:No significant edema, distal pulses intact Skin: No rashes, Integument intact CBC, BMP 03/11/19 15:00 03/11/19 05:27 Current Medications Generic Name Dose Route Start Last Admin Trade Name Freq PRN Reason Stop Dose Admin Docusate Sodium 100 mg 03/11/19 07:50 03/11/19 08:38 Colace - PO 100 mg BID PRN Administration CONSTIPATION Heparin Sodium (Porcine) 1,000 unit 03/09/19 20:42 03/11/19 17:34 Heparin - IVPUSH 1,000 unit PRN PRN Administration Heparin Heparin Sodium (Porcine) 5,000 unit 03/09/19 20:42 Heparin - IVPUSH PRN PRN Heparin Hydromorphone HCl 10 mg 03/09/19 16:15 03/11/19 06:13 Dilaudid Outfitter Cabin - PROCUREMENT AGENT 03/12/19 16:02 10 mg PROCUREMENT AGENT KEYSHA Administration Protocol Heparin Sodium/Dextrose 25,000 units in 500 mls @ 20 mls/hr 03/09/19 20:45 17:00 Heparin Infusion - IVPB 1,400 units/hr TITR KEYSHA 28 mls/hr Titration Protocol 1,000 UNITS/HR Lactated Ringer's 1,000 mls @ 75 mls/hr 03/11/19 08:00 03/11/19 08:32 Lactated Ringers Solution IV 75 mls/hr ASDIR KEYSHA Administration Ondansetron HCl 4 mg 03/09/19 15:54 03/10/19 14:28 Zofran Injection IVPUSH 4 mg Q6H PRN Administration NAUSEA AND/OR VOMITING Ondansetron HCl 4 mg 03/09/19 16:00 Zofran Injection IVPUSH Q6H PRN NAUSEA AND/OR VOMITING Promethazine HCl 12.5 mg 03/09/19 16:00 Phenergan Injection - IVPUSH Q6H PRN NAUSEA-FOR RESCUE AFTER 15 MIN Senna 1 tab 03/11/19 22:00 Senna - PO HS KEYSHA Simethicone 80 mg 03/11/19 11:41 03/11/19 12:56 Mylicon - PO 80 mg QID PRN Administration GAS Triamterene/HCTZ 1 cap 03/10/19 10:00 03/11/19 09:28 Dyazide 25/37.5mg PO 1 cap DAILY KEYSHA Administration Impression: Spinal stenosis and lumbar radiculopathy requiring spinal surgery with L1-S1 Laminectomies/Osteotomies/Posterior Instrumentation/PLIF/Biomechanical Devices Pulmonary Emboli- presumably provoked Consider thrombophilia work up as out patient On heparin -- can be converted to NOAC or coumadin per physicians preference, OBJECTIVE: ASSESSMENT AND PLAN:
--- NOTE | 2019-03-11 19:46 | PN ---
Progress Note, Physician Chief Complaint: SOB, back pain - Current Medication List Current Medications: Active Medications Docusate Sodium (Colace -) 100 mg PO BID PRN PRN Reason: CONSTIPATION Last Admin: 03/11/19 08:38 Dose: 100 mg Heparin Sodium (Porcine) (Heparin -) 1,000 unit IVPUSH PRN PRN PRN Reason: Heparin Last Admin: 03/11/19 17:34 Dose: 1,000 unit Heparin Sodium (Porcine) (Heparin -) 5,000 unit IVPUSH PRN PRN PRN Reason: Heparin Hydromorphone HCl (Dilaudid Artist Blacksmith -) 10 mg CABIN CLEANER CABIN CLEANER [facility]; Protocol Stop: 03/12/19 16:02 Last Admin: 03/11/19 06:13 Dose: 10 mg Heparin Sodium/Dextrose (Heparin Infusion -) 25,000 units in 500 mls @ 20 mls/ hr IVPB TITR [facility]; Protocol Last Titration: 03/11/19 17:00 Dose: 1,400 units/hr, 28 mls/hr Lactated Ringer's (Lactated Ringers Solution) 1,000 mls @ 75 mls/hr IV ASDIR KEYSHA Last Admin: 03/11/19 08:32 Dose: 75 mls/hr Ondansetron HCl (Zofran Injection) 4 mg IVPUSH Q6H PRN PRN Reason: NAUSEA AND/OR VOMITING Last Admin: 03/10/19 14:28 Dose: 4 mg Ondansetron HCl (Zofran Injection) 4 mg IVPUSH Q6H PRN PRN Reason: NAUSEA AND/OR VOMITING Promethazine HCl (Phenergan Injection -) 12.5 mg IVPUSH Q6H PRN PRN Reason: NAUSEA-FOR RESCUE AFTER 15 MIN Senna (Senna -) 1 tab PO HS [facility] Simethicone (Mylicon -) 80 mg PO QID PRN PRN Reason: GAS Last Admin: 03/11/19 12:56 Dose: 80 mg Triamterene/HCTZ (Dyazide 25/37.5mg) 1 cap PO DAILY KEYSHA Last Admin: 03/11/19 09:28 Dose: 1 cap - Objective Vital Signs: Vital Signs Temperature 98 F 03/11/19 16:00 Pulse Rate 100 H 03/11/19 18:00 Respiratory Rate 18 03/11/19 18:00 Blood Pressure 147/88 03/11/19 18:00 O2 Sat by Pulse Oximetry (%) 100 03/11/19 18:00 Constitutional: Yes: Well Nourished, Anxious, Mild Distress Eyes: Yes: WNL HENT: Yes: WNL Neck: Yes: WNL Cardiovascular: Yes: Tachycardia Respiratory: Yes: On Nasal O2 Gastrointestinal: Yes: WNL Genitourinary: Yes: WNL Musculoskeletal: Yes: Back Pain Extremities: Yes: WNL Edema: No Wound/Incision: Yes: Clean/Dry, Well Approximated ...Motor Strength: WNL Psychiatric: Yes: Agitated Labs: CBC, BMP 03/11/19 15:00 03/11/19 05:27 INR, PTT INR 1.15 (0.83-1.09) H 03/10/19 05:20 Assessment/Plan 53 y/o M with no significant PMH who was experiencing chronic back and leg pain and was brought to the hospital for surgical repair of thoracolumosacral disease. -S/P: 1. L1, L2, L3, L4, L5, S1 laminectomies. 2. L1, L2, L3, L4, L5, S1 osteotomies (facetectomies). 3. L4-L5 [place] Osteotomies. 4. T11-S1 posterior instrumentation. 5. L2-L3, L4-L5, L5-S1 discectomies. 6. L2-L3, L4- L5, L5-S1 posterior lumbar interbody fusion. 7. L2-L3, L4-L5, L5-S1 insertion biomechanical devices. 8. T11-S1 posterolateral arthrodesis. 9. Durotomy repair. 10. Bone allograft. 11. Bone autograft. 12. Bone marrow aspiration. 13. Complex wound closure (30cm) -cont pain management. incentive spirometry. looks more distressed compared to yesterday. is very anxious. I explained to her that his body is dealing with a serious acute pulmonary event and recovery will take time. -diagnosed with acute PE: on heparin drip. hematology eval appreciated. outpatient hypercoagulability workup is recommended. -leucocytosis, likely from PE, r/o infectious etiology. trending lower. -HTN: on dyazide. -GI, DVT prophylaxis. -cont IV fluids for rhabdomyolysis. urine RBC's are actually myoglobin from rhabdo ,not blood. no need for urology eval. trending lower. -oral diet. aspiration precautions -assessment and plan discussed with pt, his , and medical staff. is looking at different rehab options.
[2019-03-11] MEDS: CYCLOBENZAPRINE HCL 5 MG TABLET PO SCH ×2 (22:23→22:38)
[2019-03-12] MEDS: DOCUSATE SODIUM 100 MG CAPSULE (FP) PO PRN (01:51)
[2019-03-12] MEDS: SENNOSIDES 8.6MG TABLET (FP) PO SCH ×2 (01:53→22:26)
[2019-03-12] MEDS ORDERED: PT OWN MED DRAWER 7, Y5N ONE ×3 (04:40→09:45)
[2019-03-12] MEDS: SIMETHICONE 80 MG TAB.CHEW (FP) PO PRN ×2 (05:17→18:44)
[2019-03-12] MEDS: CYCLOBENZAPRINE HCL 5 MG TABLET PO SCH ×3 (05:17→22:26)
[2019-03-12] MEDS: LACTATED RINGERS SOLUTION 1,000 ML IV SCH ×3 (05:18→17:00)
[2019-03-12 06:36] LABS: HEMATOCRIT 23.3 % (35.4-49); HEMOGLOBIN 7.9 GM/dL (11.7-16.9); MCH 29.4 pg (25.7-33.7); MCHC 33.9 g/dl (32.0-35.9); MEAN CELL VOLUME 86.6 fl (80-96); MEAN PLT VOLUME 9.2 fl (7.5-11.1); PLATELET COUNT 140 K/MM3 (134-434); RBC 2.69 M/mm3 (4.00-5.60); RDW 13.1 % (11.9-15.9); WHITE BLOOD COUNT 13.3 K/mm3 (4.0-10.0)
[2019-03-12] MEDS ORDERED: BISACODYL 10 MG SUPP.RECT PR PRN (07:52)
[2019-03-12 08:32] LABS: ALBUMIN 2.2 g/dl (3.4-5.0); BILIRUBIN,TOTAL 0.6 mg/dL (0.2-1); BLOOD UREA NITROGEN 13.8 mg/dL (7-18); CREATININE 0.5 mg/dL (0.55-1.3); MAGNESIUM 2.4 mg/dL (1.8-2.4); PHOSPHOROUS 1.6 mg/dL (2.5-4.9); POTASSIUM 3.7 mmol/L (3.5-5.1)
[2019-03-12] MEDS ORDERED: NAPH,MB-DB/K PH,MBDB POWDER PACKET PO ONE (08:34)
--- NOTE | 2019-03-12 08:39 | PN ---
Physical Exam: SUBJECTIVE: Patient seen and examined at bedside- patient still has not passed gas and is very uncomfortable as he feels like he has to go but nothing is moving- he walked a few steps with PT yesterday and felt ok; he denies any CP/ SOB/N/V OBJECTIVE: Vital Signs Period Temp Pulse Resp BP Sys/Augustin Pulse Ox Last 24 Hr 97.2 F-98.4 F 100-123 16-21 128-162/62-98 97-115 GENERAL: The patient is awake, alert, and fully oriented, in no acute distress. EYES:PEERLA: EOMI no scleral icterus NECK: Tno JVD; no lymphadenopathy LUNGS: Breath sounds equal, clear to auscultation bilaterally, no wheezes, no crackles, no accessory muscle use. HEART: Regular rate and rhythm, S1, S2 without murmur, rub or gallop. ABDOMEN: Soft, nontender, slightly more distended today hypoactive bowel sounds , no guarding, no rebound, no hepatosplenomegaly, no masses. EXTREMITIES: 2+ pulses, warm, well-perfused, no edema SCDS in place. NEUROLOGICAL: Cranial nerves II through XII grossly intact.4/5 strength in [id number]; sensation slightly diminished on right extremity SKIN: Warm, dry, normal turgor, no rashes or lesions noted Laboratory Results - last 24 hr 03/09/19 03/11/19 03/11/19 06:24 05:27 15:00 WBC 13.7 H RBC 3.09 L Hgb 9.2 L Hct 26.8 L MCV 86.9 MCH 29.7 MCHC 34.2 RDW 13.2 Plt Count 137 MPV 9.4 PTT (Actin FS) Sodium 140 Potassium 4.1 Chloride 103 Carbon Dioxide 32 Anion Gap 5 L BUN 17.8 Creatinine 0.7 Est GFR (CKD-EPI)AfAm 124.00 Est GFR (CKD-EPI)NonAf 106.99 Random Glucose 126 H Calcium 7.8 L Phosphorus 2.0 L Magnesium 2.3 Total Bilirubin AST ALT Alkaline Phosphatase Creatine Kinase 2566 H Creatine Kinase Index 0.5 CK-MB (CK-2) 14.1 H Total Protein Albumin Crossmatch IS Only See Detail 03/11/19 03/11/19 03/12/19 15:00 23:30 06:10 WBC 13.3 H RBC 2.69 L Hgb 7.9 L Hct 23.3 L MCV 86.6 MCH 29.4 MCHC 33.9 RDW 13.1 Plt Count 140 MPV 9.2 PTT (Actin FS) 46.1 H 38.3 H Sodium Potassium Chloride Carbon Dioxide Anion Gap BUN Creatinine Est GFR (CKD-EPI)AfAm Est GFR (CKD-EPI)NonAf Random Glucose Calcium Phosphorus Magnesium Total Bilirubin AST ALT Alkaline Phosphatase Creatine Kinase Creatine Kinase Index CK-MB (CK-2) Total Protein Albumin Crossmatch IS Only 03/12/19 03/12/19 03/12/19 06:10 06:10 06:10 WBC RBC Hgb Hct MCV MCH MCHC RDW Plt Count MPV PTT (Actin FS) 58.6 H Sodium 138 Potassium 3.7 Chloride 102 Carbon Dioxide 32 Anion Gap 5 L BUN 13.8 Creatinine 0.5 L Est GFR (CKD-EPI)AfAm 142.39 Est GFR (CKD-EPI)NonAf 122.86 Random Glucose 105 Calcium 8.0 L Phosphorus 1.6 L Magnesium 2.4 Total Bilirubin 0.6 AST 69 H ALT 35 Alkaline Phosphatase 47 Creatine Kinase 2040 H Creatine Kinase Index CK-MB (CK-2) Total Protein 5.0 L Albumin 2.2 L Crossmatch IS Only Active Medications Generic Name Dose Route Start Last Admin Trade Name Freq PRN Reason Stop Dose Admin Bisacodyl 10 mg 03/12/19 07:52 Dulcolax Suppository - [place] PRN PRN CONSTIPATION Cyclobenzaprine HCl 5 mg 03/11/19 20:04 03/12/19 05:17 Cyclobenzaprine Hcl PO 03/21/19 20:03 5 mg TID KEYSHA Administration Docusate Sodium 100 mg 03/11/19 07:50 03/12/19 01:51 Colace - PO 100 mg BID PRN Administration CONSTIPATION Heparin Sodium (Porcine) 1,000 unit 03/09/19 20:42 03/11/19 17:34 Heparin - IVPUSH 1,000 unit PRN PRN Administration Heparin Heparin Sodium (Porcine) 5,000 unit 03/09/19 20:42 03/12/19 01:38 Heparin - IVPUSH 5,000 unit PRN PRN Administration Heparin Hydromorphone HCl 10 mg 03/09/19 16:15 03/11/19 22:39 Dilaudid Movie Shot Camera Operator - SAFETY DEPOSIT BOXES CUSTODIAN 03/12/19 16:02 10 mg SAFETY DEPOSIT BOXES CUSTODIAN KEYSHA Administration Protocol Heparin Sodium/Dextrose 25,000 units in 500 mls @ 20 mls/hr 03/09/19 20:45 01:07 Heparin Infusion - IVPB 1,550 units/hr TITR KEYSHA 31 mls/hr Titration Protocol 1,000 UNITS/HR Lactated Ringer's 1,000 mls @ 75 mls/hr 03/11/19 08:00 03/12/19 05:18 Lactated Ringers Solution IV 75 mls/hr ASDIR KEYSHA Administration Ondansetron HCl 4 mg 03/09/19 15:54 03/10/19 14:28 Zofran Injection IVPUSH 4 mg Q6H PRN Administration NAUSEA AND/OR VOMITING Ondansetron HCl 4 mg 03/09/19 16:00 Zofran Injection IVPUSH Q6H PRN NAUSEA AND/OR VOMITING Promethazine HCl 12.5 mg 03/09/19 16:00 Phenergan Injection - IVPUSH Q6H PRN NAUSEA-FOR RESCUE AFTER 15 MIN Senna 1 tab 03/11/19 22:00 Senna - PO HS KEYSHA Simethicone 80 mg 03/11/19 11:41 03/12/19 05:17 Mylicon - PO 80 mg QID PRN Administration GAS Triamterene/HCTZ 1 cap 03/10/19 10:00 03/11/19 09:28 Dyazide 25/37.5mg PO 1 cap DAILY KEYSHA Administration ASSESSMENT/PLAN: 53 y.o male with PMH of HTN presented for worsening lower back pain and right toe numbness/tingling who underwent T11-S11 laminectomies, osteotomies, discectomies, fusions, arthroodesis who was found to have a R lower lobe PE #Neuro stable; no issues still having some right foot numbness from before surgery -will monitor #Cardio patient has history of HTN -c/w home meds -given that patient was found to have PE - -echo done; showing no evidence of right heart strain -monitor hemodynamics # Heme patient found to have right pulmonary artery PE; no risk factors (no smoking history, recent travel, fam history) -currently on Heparin drip -monitor for signs of bleeding: hgb this AM 7.9- will repeat in afternoon and possibly transfuse if Hgb <7 -could not send FOBT since patient has not had BM yet; dressing c/d/i no signs of bleeding from wound -monitor PTT; CBC daily (PTT this AM 58.6) -echo done: normal -LE dopplers done showing no DVT -heme consulted #MSK POD #3 T11-S11 laminectomies/discectomies/fusions/arthrodesis -Dilaudid SAFETY DEPOSIT BOXES CUSTODIAN for pain; Oxy 5/10 -Zofran PRN for nausea -OOB -patient still has not passed gas despite being on miralax/colace/senna- will add suppository and get patient out of bed -LR @75mls/hr -incentive spirometer -follow Dr. Paredes/Sixto recommendations - #Pulmonary patient found to have PE in prox to mid right lower lobe pulmonary artery -patient currently on Heparin drip -monitor PTT/CBC;: PTT this AM 58 -monitor O2 sats and hemodynamics #Renal patient has rhabdo; -CPK downtrending; 2039 this AM -will continue to monitor -c/w LR @75mls/hr F/E/N LR @75mls/hr monitor electrolytes NPO until flatus DVT PPX: heparin drip Problem List - Problems (1) Hx of spinal surgery Code(s): Z98.890 - OTHER SPECIFIED POSTPROCEDURAL STATES (2) Pulmonary embolism Code(s): I26.99 - OTHER PULMONARY EMBOLISM WITHOUT ACUTE COR PULMONALE (3) HTN (hypertension) Code(s): I10 - ESSENTIAL (PRIMARY) HYPERTENSION Visit type - Emergency Visit Emergency Visit: Yes ED Registration Date: 03/09/19 Care time: The patient presented to the Emergency Department on the above date and was hospitalized for further evaluation of their emergent condition. - New Patient This patient is new to me today: No - Critical Care Critical Care patient: Yes Total Critical Care Time (in minutes): 35 Critical Care Statement: The care of this patient involved high complexity decision making to prevent further life threatening deterioration of the patient 's condition and/or to evaluate & treat vital organ system(s) failure or risk of failure.
--- NOTE | 2019-03-12 09:14 | PN ---
Progress Note (short form) - Note Progress Note: Pain management follow up 53 y/o M s/p multilevel laminectomy and instrumentation on Saturday, pain management with skimmer scoop operator, found to have PE postop. Pain fairly well controlled with skimmer scoop operator, will start PT today, will continue SNOWBOARDING INSTRUCTOR today, follow up tomorrow.
[2019-03-12] MEDS: HEPARIN INFUSION - 25,000 UNITS/500 ML INFUS.BAG IVPB SCH (09:45)
[2019-03-12] MEDS: TRIAMTERENE AND HCTZ - 37.5 MG/25 MG CAPSULE PO SCH (09:47)
--- NOTE | 2019-03-12 09:53 | PN ---
Progress Note (short form) - Note Progress Note: 53M s/p L1-S1 decompression & T11-S1 posterolateral instrumented arthrodesis POD #2. Pt. has confirmed post-operative pulmonary embolism; receiving therapeutic anticoagulation. Pain well controlled. Pt. denies overnight history of headaches, chest pain, shortness of breath, nausea, vomiting, chills, & sweats. (+) Lambert; (-) Flatus; (-) BM. (+) Stood up again with PT today; took a few steps; no positional headaches. All labs and vitals reviewed. PE: AAO x 3, NAD. L-Spine: Incision, dressing C/D/I. Drain intact & in place. B/L LE M: L2-S1 intact, minimum 3/5. RLE S: L2-L3, L5-S1 2/2; L4 1/2. LLE S: L2-S1 2/2. 53M s/p L1-S1 decompression & T11-S1 posterolateral instrumented arthrodesis POD #2. -Pain control: NO NSAID's. -Nursing care: fastidious avoidance of decubitus ulcers; log roll/place on wedge pillows every 2 hours; rolled up towels under the ankles to offload the heels. -DVT PPx: -Mechanical only: BEAU's, SCD's. -Chemical: therapeutic a/c as myesha ICU/hospitalist teams. -Incentive spirometry q15 min. -NPO until flatus. -Lambert care; d/c when ambulating. -PT/OT/Rehab, OOB. -WBAT B/L LE. -Raised toilet seat. -No bending, lifting (>5 lbs), or twisting for 9-12 months. -Care per ICU & medical hospitalist Dr. Henson. -Discharge planning: f/u 7-10 days after discharge at [facility] office; call for appointment; . -Will follow. Rex Paredes MD (Orthopaedic Surgery).
--- NOTE | 2019-03-12 09:55 | PN ---
Progress Note (short form) - Note Progress Note: 53M s/p L1-S1 decompression & T11-S1 posterolateral instrumented arthrodesis POD #3. -Pain control: NO NSAID's. -Nursing care: fastidious avoidance of decubitus ulcers; log roll/place on wedge pillows every 2 hours; rolled up towels under the ankles to offload the heels. -Transfuse 2U PRBC today d/t acute blood-loss anemia related to surgery. -DVT PPx: -Mechanical only: BEAU's, SCD's. -Chemical: therapeutic a/c as myesha ICU/hospitalist teams. -Incentive spirometry q15 min. -NPO until flatus. -Lambert care; d/c when ambulating. -PT/OT/Rehab, OOB. -WBAT B/L LE. -Raised toilet seat. -No bending, lifting (>5 lbs), or twisting for 9-12 months. -Care per ICU & medical hospitalist Dr. Henson. -Discharge planning: f/u 7-10 days after discharge at [facility] [place] office; call for appointment; . -Will follow. Rex Paredes MD (Orthopaedic Surgery).
--- NOTE | 2019-03-12 10:18 | PN ---
Progress Note, Physician Chief Complaint: SOB, back pain - Current Medication List Current Medications: Active Medications Bisacodyl (Dulcolax Suppository -) 10 mg MD PRN PRN PRN Reason: CONSTIPATION Cyclobenzaprine HCl (Cyclobenzaprine Hcl) 5 mg PO TID [facility] Stop: 03/21/19 20:03 Last Admin: 03/12/19 05:17 Dose: 5 mg Docusate Sodium (Colace -) 100 mg PO BID PRN PRN Reason: CONSTIPATION Last Admin: 03/12/19 01:51 Dose: 100 mg Gabapentin (Neurontin -) 300 mg PO TID [facility] Heparin Sodium (Porcine) (Heparin -) 1,000 unit IVPUSH PRN PRN PRN Reason: Heparin Last Admin: 03/11/19 17:34 Dose: 1,000 unit Heparin Sodium (Porcine) (Heparin -) 5,000 unit IVPUSH PRN PRN PRN Reason: Heparin Last Admin: 03/12/19 01:38 Dose: 5,000 unit Hydromorphone HCl (Dilaudid Cementer Machine Applicator -) 10 mg LACTATION NURSE LACTATION NURSE [facility]; Protocol Stop: 03/12/19 16:02 Last Admin: 03/11/19 22:39 Dose: 10 mg Heparin Sodium/Dextrose (Heparin Infusion -) 25,000 units in 500 mls @ 20 mls/ hr IVPB TITR [facility]; Protocol Last Admin: 03/12/19 09:45 Dose: 1,550 units/hr, 31 mls/hr Lactated Ringer's (Lactated Ringers Solution) 1,000 mls @ 75 mls/hr IV ASDIR [facility] Last Admin: 03/12/19 08:00 Dose: Not Given Ondansetron HCl (Zofran Injection) 4 mg IVPUSH Q6H PRN PRN Reason: NAUSEA AND/OR VOMITING Last Admin: 03/10/19 14:28 Dose: 4 mg Ondansetron HCl (Zofran Injection) 4 mg IVPUSH Q6H PRN PRN Reason: NAUSEA AND/OR VOMITING Promethazine HCl (Phenergan Injection -) 12.5 mg IVPUSH Q6H PRN PRN Reason: NAUSEA-FOR RESCUE AFTER 15 MIN Senna (Senna -) 1 tab PO HS [facility] Simethicone (Mylicon -) 80 mg PO QID PRN PRN Reason: GAS Last Admin: 03/12/19 05:17 Dose: 80 mg Triamterene/HCTZ (Dyazide 25/37.5mg) 1 cap PO DAILY KEYSHA Last Admin: 03/12/19 09:47 Dose: 1 cap - Objective Vital Signs: Vital Signs Temperature 98.2 F 03/12/19 10:00 Pulse Rate 109 H 03/12/19 10:00 Respiratory Rate 16 03/12/19 10:00 Blood Pressure 160/99 03/12/19 10:00 O2 Sat by Pulse Oximetry (%) 100 03/12/19 10:00 Constitutional: Yes: Well Nourished Eyes: Yes: WNL HENT: Yes: WNL Neck: Yes: WNL Cardiovascular: Yes: Tachycardia Respiratory: Yes: SOB Gastrointestinal: Yes: Distention Genitourinary: Yes: WNL Musculoskeletal: Yes: Back Pain Extremities: Yes: WNL Edema: No Integumentary: Yes: WNL Wound/Incision: Yes: Clean/Dry, Well Approximated Neurological: Yes: WNL Labs: CBC, BMP 03/12/19 06:10 03/12/19 06:10 INR, PTT INR 1.15 (0.83-1.09) H 03/10/19 05:20 Assessment/Plan 53 y/o M with no significant PMH who was experiencing chronic back and leg pain and was brought to the hospital for surgical repair of thoracolumosacral disease. -S/P: 1. L1, L2, L3, L4, L5, S1 laminectomies. 2. L1, L2, L3, L4, L5, S1 osteotomies (facetectomies). 3. L4-L5 [place] Osteotomies. 4. T11-S1 posterior instrumentation. 5. L2-L3, L4-L5, L5-S1 discectomies. 6. L2-L3, L4- L5, L5-S1 posterior lumbar interbody fusion. 7. L2-L3, L4-L5, L5-S1 insertion biomechanical devices. 8. T11-S1 posterolateral arthrodesis. 9. Durotomy repair. 10. Bone allograft. 11. Bone autograft. 12. Bone marrow aspiration. 13. Complex wound closure (30cm) -cont pain management. incentive spirometry. -H&H lower today. asked for repeat CBC. then will decide if Pt needs blood. -diagnosed with acute PE: on heparin drip. hematology eval appreciated. outpatient hypercoagulability workup is recommended. should be discharged on eliquis. -leucocytosis, likely from PE, r/o infectious etiology. trending lower. -abdomen more distended today. will get suppository today. -HTN: on dyazide. -GI, DVT prophylaxis. -cont IV fluids for rhabdomyolysis. urine RBC's are actually myoglobin from rhabdo ,not blood. no need for urology eval. trending lower. -oral diet. aspiration precautions -assessment and plan discussed with pt, his , and medical staff. is looking at different rehab options.
--- NOTE | 2019-03-12 11:34 | PN ---
Teaching Attending Note Name of Resident: Aaliyah Sales ATTENDING PHYSICIAN STATEMENT I saw and evaluated the patient. I reviewed the resident's note and discussed the case with the resident. I agree with the resident's findings and plan as documented. SUBJECTIVE: Pt seen and examined in the ICU. Denies shortness of breath or chest pain. H/H trending lower. No fevers or chills. Still without flatus or BM. OBJECTIVE: Vital Signs Period Temp Pulse Resp BP Sys/Augustin Pulse Ox Last 24 Hr 97.2 F-98.4 F 100-123 16-21 128-162/62-99 97-115 Intake & Output 03/09/19 03/10/19 03/11/19 03/12/19 23:59 23:59 23:59 23:59 Intake Total 4800 1787 3466.4 Output Total 2700 1500 3380 600 Balance 2100 287 86.4 -600 Weight 103.873 kg 104.145 kg Gen: NAD at rest Heart: RRR Lung: decreased breath sounds at the bases Abd: soft, nontender Ext: no edema Drain with minimal drainage CBC, BMP 03/12/19 06:10 03/12/19 06:10 Active Medications Bisacodyl (Dulcolax Suppository -) 10 mg [place] PRN PRN PRN Reason: CONSTIPATION Cyclobenzaprine HCl (Cyclobenzaprine Hcl) 5 mg PO TID [facility] Stop: 03/21/19 20:03 Last Admin: 03/12/19 05:17 Dose: 5 mg Docusate Sodium (Colace -) 100 mg PO BID PRN PRN Reason: CONSTIPATION Last Admin: 03/12/19 01:51 Dose: 100 mg Gabapentin (Neurontin -) 300 mg PO TID [facility] Heparin Sodium (Porcine) (Heparin -) 1,000 unit IVPUSH PRN PRN PRN Reason: Heparin Last Admin: 03/11/19 17:34 Dose: 1,000 unit Heparin Sodium (Porcine) (Heparin -) 5,000 unit IVPUSH PRN PRN PRN Reason: Heparin Last Admin: 03/12/19 01:38 Dose: 5,000 unit Hydromorphone HCl (Dilaudid Steward/Stewardess Tourist Class -) 10 mg QA LEAD QA LEAD [facility]; Protocol Stop: 03/12/19 16:02 Last Admin: 03/11/19 22:39 Dose: 10 mg Heparin Sodium/Dextrose (Heparin Infusion -) 25,000 units in 500 mls @ 20 mls/ hr IVPB TITR KEYSHA; Protocol Last Admin: 03/12/19 09:45 Dose: 1,550 units/hr, 31 mls/hr Lactated Ringer's (Lactated Ringers Solution) 1,000 mls @ 75 mls/hr IV ASDIR [facility] Last Admin: 03/12/19 08:00 Dose: Not Given Ondansetron HCl (Zofran Injection) 4 mg IVPUSH Q6H PRN PRN Reason: NAUSEA AND/OR VOMITING Last Admin: 03/10/19 14:28 Dose: 4 mg Ondansetron HCl (Zofran Injection) 4 mg IVPUSH Q6H PRN PRN Reason: NAUSEA AND/OR VOMITING Promethazine HCl (Phenergan Injection -) 12.5 mg IVPUSH Q6H PRN PRN Reason: NAUSEA-FOR RESCUE AFTER 15 MIN Senna (Senna -) 1 tab PO [facility] Simethicone (Mylicon -) 80 mg PO QID PRN PRN Reason: GAS Last Admin: 03/12/19 05:17 Dose: 80 mg Triamterene/HCTZ (Dyazide 25/37.5mg) 1 cap PO DAILY [facility] Last Admin: 03/12/19 09:47 Dose: 1 cap ASSESSMENT AND PLAN: Lumbar Stenosis with Radiculopathy and Neurogenic Claudication s/p L1-S1 Laminectomies/Osteotomies/Posterior Instrumentation/PLIF/ Biomechanical Devices Acute Pulmonary Emboli - continue anticoagulation - monitor H/H - pain control - incentive spirometry - PO when flatus - bowel regimen - d/c [place] when OOB - ICU monitoring
[2019-03-12] MEDS ORDERED: HYDROmorphone *PCA* 10MG/50ML DISP.SYRIN ONE ×2 (12:30→23:10)
[2019-03-12] MEDS: HYDROmorphone *PCA* 10MG/50ML DISP.SYRIN PCA SCH (12:34)
[2019-03-12 13:23] LABS: HEMATOCRIT 23.3 % (35.4-49); MCH 29.8 pg (25.7-33.7); MCHC 34.4 g/dl (32.0-35.9); MEAN CELL VOLUME 86.8 fl (80-96); MEAN PLT VOLUME 8.9 fl (7.5-11.1); RBC 2.69 M/mm3 (4.00-5.60); WHITE BLOOD COUNT 13.8 K/mm3 (4.0-10.0)
[2019-03-12 13:29] LABS: PLATELET COUNT 156 K/MM3 (134-434)
[2019-03-12] MEDS: GABAPENTIN 300 MG CAPSULE (FP) PO SCH ×2 (13:58→22:26)
--- NOTE | 2019-03-12 19:00 | PN ---
Progress Note (short form) - Note Progress Note: Patient seen and examined c/o constipation Last Vital Signs Temp Pulse Resp BP Pulse Ox 98.1 F 110 H 20 160/100 110 H 03/12/19 18:00 03/12/19 18:00 03/12/19 18:00 03/12/19 18:00 03/12/19 18:00 Cor: RSR, No murmurs, No gallops Lungs: Clear to P&A Abd: Soft, Normal bowel sounds, No organomegaly Ext:No significant edema moving his feet Abnormal Lab Results 03/09/19 03/11/19 03/12/19 06:24 23:30 06:10 WBC 13.3 H RBC 2.69 L Hgb 7.9 L Hct 23.3 L Retic Count PTT (Actin FS) 38.3 H Anion Gap Creatinine Calcium Phosphorus AST Creatine Kinase CK-MB (CK-2) Total Protein Albumin Crossmatch Crossmatch IS Only See Detail 03/12/19 03/12/19 03/12/19 06:10 06:10 06:10 WBC RBC Hgb Hct Retic Count PTT (Actin FS) 58.6 H Anion Gap 5 L Creatinine 0.5 L Calcium 8.0 L Phosphorus 1.6 L AST 69 H Creatine Kinase 2040 H CK-MB (CK-2) 7.1 H Total Protein 5.0 L Albumin 2.2 L Crossmatch Crossmatch IS Only 03/12/19 03/12/19 03/12/19 06:10 13:02 13:46 WBC 13.8 H RBC 2.69 L Hgb 8.0 L Hct 23.3 L Retic Count 2.11 H PTT (Actin FS) Anion Gap Creatinine Calcium Phosphorus AST Creatine Kinase CK-MB (CK-2) Total Protein Albumin Crossmatch See Detail Crossmatch IS Only Active Medications Generic Name Dose Route Start Last Admin Trade Name Freq PRN Reason Stop Dose Admin Bisacodyl 10 mg 03/12/19 07:52 Dulcolax Suppository - [place] PRN PRN CONSTIPATION Cyclobenzaprine HCl 5 mg 03/11/19 20:04 03/12/19 13:58 Cyclobenzaprine Hcl PO 03/21/19 20:03 5 mg TID KEYSHA Administration Docusate Sodium 100 mg 03/11/19 07:50 03/12/19 01:51 Colace - PO 100 mg BID PRN Administration CONSTIPATION Gabapentin 300 mg 03/12/19 14:00 03/12/19 13:58 Neurontin - PO 300 mg TID KEYSHA Administration Heparin Sodium (Porcine) 1,000 unit 03/09/19 20:42 03/11/19 17:34 Heparin - IVPUSH 1,000 unit PRN PRN Administration Heparin Heparin Sodium (Porcine) 5,000 unit 03/09/19 20:42 03/12/19 01:38 Heparin - IVPUSH 5,000 unit PRN PRN Administration Heparin Heparin Sodium/Dextrose 25,000 units in 500 mls @ 20 mls/hr 03/09/19 20:45 09:45 Heparin Infusion - IVPB 1,550 units/hr TITR KEYSHA 31 mls/hr Administration Protocol 1,000 UNITS/HR Lactated Ringer's 1,000 mls @ 75 mls/hr 03/11/19 08:00 03/12/19 17:00 Lactated Ringers Solution IV 75 mls/hr ASDIR KEYSHA Administration Ondansetron HCl 4 mg 03/09/19 15:54 03/10/19 14:28 Zofran Injection IVPUSH 4 mg Q6H PRN Administration NAUSEA AND/OR VOMITING Ondansetron HCl 4 mg 03/09/19 16:00 Zofran Injection IVPUSH Q6H PRN NAUSEA AND/OR VOMITING Promethazine HCl 12.5 mg 03/09/19 16:00 Phenergan Injection - IVPUSH Q6H PRN NAUSEA-FOR RESCUE AFTER 15 MIN Senna 1 tab 03/11/19 22:00 Senna - PO HS KEYSHA Simethicone 80 mg 03/11/19 11:41 03/12/19 18:44 Mylicon - PO 80 mg QID PRN Administration GAS Triamterene/HCTZ 1 cap 03/10/19 10:00 03/12/19 09:47 Dyazide 25/37.5mg PO 1 cap DAILY KEYSHA Administration A/P Spinal stenosis and lumbar radiculopathy requiring spinal surgery with L1-S1 Laminectomies/Osteotomies/Posterior Instrumentation/PLIF/Biomechanical Devices Pulmonary Emboli- presumably provoked Consider thrombophilia work up as out patient On heparin -- can be converted to NOAC or coumadin per physicians preference,
[2019-03-12 20:51] LABS: HEMATOCRIT 24.6 % (35.4-49); HEMOGLOBIN 8.2 GM/dL (11.7-16.9); MCH 29.4 pg (25.7-33.7); MCHC 33.5 g/dl (32.0-35.9); MEAN CELL VOLUME 87.7 fl (80-96); MEAN PLT VOLUME 9.1 fl (7.5-11.1); PLATELET COUNT 144 K/MM3 (134-434); RBC 2.81 M/mm3 (4.00-5.60); RDW 13.4 % (11.9-15.9); WHITE BLOOD COUNT 11.1 K/mm3 (4.0-10.0)
[2019-03-12] MEDS ORDERED: HYDROmorphone *PCA* 10MG/50ML DISP.SYRIN PCA SCH (22:45)
[2019-03-13] MEDS: SIMETHICONE 80 MG TAB.CHEW (FP) PO PRN (04:46)
[2019-03-13 05:58] LABS: HEMATOCRIT 22.9 % (35.4-49); MCH 30.1 pg (25.7-33.7); MCHC 34.9 g/dl (32.0-35.9); MEAN CELL VOLUME 86.2 fl (80-96); MEAN PLT VOLUME 8.6 fl (7.5-11.1); RBC 2.66 M/mm3 (4.00-5.60); RDW 13.1 % (11.9-15.9); WHITE BLOOD COUNT 8.5 K/mm3 (4.0-10.0)
[2019-03-13] MEDS: GABAPENTIN 300 MG CAPSULE (FP) PO SCH ×3 (06:07→21:23)
[2019-03-13] MEDS: CYCLOBENZAPRINE HCL 5 MG TABLET PO SCH ×3 (06:21→21:54)
[2019-03-13] MEDS: HEPARIN INFUSION - 25,000 UNITS/500 ML INFUS.BAG IVPB SCH ×2 (07:41→21:53)
[2019-03-13] MEDS: LACTATED RINGERS SOLUTION 1,000 ML IV SCH (07:42)
[2019-03-13 07:56] LABS: PLATELET COUNT 149 K/MM3 (134-434)
[2019-03-13 08:11] LABS: BLOOD UREA NITROGEN 11.4 mg/dL (7-18); CALCIUM 7.8 mg/dL (8.5-10.1); CREATININE 0.6 mg/dL (0.55-1.3); MAGNESIUM 2.4 mg/dL (1.8-2.4); PHOSPHOROUS 2.8 mg/dL (2.5-4.9); POTASSIUM 3.4 mmol/L (3.5-5.1)
[2019-03-13] MEDS ORDERED: POTASSIUM CHLORIDE TABS 20 MEQ TABLET.ER (FP) PO ONE (08:12)
--- NOTE | 2019-03-13 09:09 | PN ---
Physical Exam: SUBJECTIVE: Patient seen and examined at bedside- no acute events overnight; patient has passed gas but is still not having bowel movements; still having right leg numbness and left anterior thigh numbness; patients repeat Hgb after 1 unit of PRBCs was 8.0 he denies any CP/SOB/N/V fevers or chills just states that he is burping a lot. OBJECTIVE: Vital Signs Period Temp Pulse Resp BP Sys/Augustin Pulse Ox Last 24 Hr 98.0 F-98.3 F 100-117 16-22 114-160/64-104 100-119 GENERAL: The patient is awake, alert, looks slightly uncomfortable EYES: PEERLA: EOMIl; no scleral icterus NECK: no JVD; no lymphadenopathy LUNGS: diminished breath sounds B/L HEART: tachycardic, S1, S2 without murmur, rub or gallop. ABDOMEN: Soft, slightly distended + BS in all 4 quadrants . EXTREMITIES: 2+ pulses, warm, well-perfused, no edema, SCDs. NEUROLOGICAL: Cranial nerves II through XII grossly intact. Normal speech, gait not observed. PSYCH: Normal mood, normal affect. SKIN: Warm, dry, normal turgor, no rashes or lesions noted Laboratory Results - last 24 hr 03/09/19 03/12/19 03/12/19 06:24 06:10 13:02 WBC 13.8 H RBC 2.69 L Hgb 8.0 L Hct 23.3 L MCV 86.8 MCH 29.8 MCHC 34.4 RDW 13.0 Plt Count 156 MPV 8.9 Retic Count 2.11 H PTT (Actin FS) Sodium Potassium Chloride Carbon Dioxide Anion Gap BUN Creatinine Est GFR (CKD-EPI)AfAm Est GFR (CKD-EPI)NonAf Random Glucose Calcium Phosphorus Magnesium Creatine Kinase Creatine Kinase Index CK-MB (CK-2) Blood Type A POSITIVE Antibody Screen Negative Crossmatch Crossmatch IS Only See Detail 03/12/19 03/12/19 03/13/19 13:46 20:25 05:32 WBC 11.1 H 8.5 RBC 2.81 L 2.66 L Hgb 8.2 L 8.0 L Hct 24.6 L 22.9 L MCV 87.7 86.2 MCH 29.4 30.1 MCHC 33.5 34.9 RDW 13.4 13.1 Plt Count 144 149 MPV 9.1 8.6 Retic Count PTT (Actin FS) Sodium Potassium Chloride Carbon Dioxide Anion Gap BUN Creatinine Est GFR (CKD-EPI)AfAm Est GFR (CKD-EPI)NonAf Random Glucose Calcium Phosphorus Magnesium Creatine Kinase Creatine Kinase Index CK-MB (CK-2) Blood Type A POSITIVE Antibody Screen Negative Crossmatch See Detail Crossmatch IS Only 03/13/19 03/13/19 05:32 05:32 WBC RBC Hgb Hct MCV MCH MCHC RDW Plt Count MPV Retic Count PTT (Actin FS) 66.7 H Sodium 138 Potassium 3.4 L Chloride 98 Carbon Dioxide 34 H Anion Gap 6 L BUN 11.4 Creatinine 0.6 Est GFR (CKD-EPI)AfAm 132.11 Est GFR (CKD-EPI)NonAf 113.99 Random Glucose 108 H Calcium 7.8 L Phosphorus 2.8 Magnesium 2.4 Creatine Kinase 1352 H Creatine Kinase Index 0.2 CK-MB (CK-2) 3.9 H Blood Type Antibody Screen Crossmatch Crossmatch IS Only Active Medications Generic Name Dose Route Start Last Admin Trade Name Freq PRN Reason Stop Dose Admin Bisacodyl 10 mg 03/12/19 07:52 Dulcolax Suppository - [place] PRN PRN CONSTIPATION Cyclobenzaprine HCl 5 mg 03/11/19 20:04 03/13/19 06:21 Cyclobenzaprine Hcl PO 03/21/19 20:03 5 mg TID KEYSHA Administration Docusate Sodium 100 mg 03/11/19 07:50 03/12/19 01:51 Colace - PO 100 mg BID PRN Administration CONSTIPATION Gabapentin 300 mg 03/12/19 14:00 03/13/19 06:07 Neurontin - PO 300 mg TID KEYSHA Administration Heparin Sodium (Porcine) 1,000 unit 03/09/19 20:42 03/11/19 17:34 Heparin - IVPUSH 1,000 unit PRN PRN Administration Heparin Heparin Sodium (Porcine) 5,000 unit 03/09/19 20:42 03/12/19 01:38 Heparin - IVPUSH 5,000 unit PRN PRN Administration Heparin Hydromorphone HCl 10 mg 03/12/19 22:45 03/12/19 23:46 Hydromorphone 10 Mg/50 Ml-Ns PHYSICAL THERAPY COORDINATOR 10 mg PHYSICAL THERAPY COORDINATOR KEYSHA Administration Protocol Heparin Sodium/Dextrose 25,000 units in 500 mls @ 20 mls/hr 03/09/19 20:45 07:41 Heparin Infusion - IVPB 1,550 units/hr TITR KEYSHA 31 mls/hr Administration Protocol 1,000 UNITS/HR Lactated Ringer's 1,000 mls @ 75 mls/hr 03/11/19 08:00 03/13/19 07:42 Lactated Ringers Solution IV 75 mls/hr ASDIR KEYSHA Administration Ondansetron HCl 4 mg 03/09/19 15:54 03/10/19 14:28 Zofran Injection IVPUSH 4 mg Q6H PRN Administration NAUSEA AND/OR VOMITING Ondansetron HCl 4 mg 03/09/19 16:00 Zofran Injection IVPUSH Q6H PRN NAUSEA AND/OR VOMITING Promethazine HCl 12.5 mg 03/09/19 16:00 Phenergan Injection - IVPUSH Q6H PRN NAUSEA-FOR RESCUE AFTER 15 MIN Senna 1 tab 03/11/19 22:00 03/12/19 22:26 Senna - PO 1 tab HS KEYSHA Administration Simethicone 80 mg 03/11/19 11:41 03/13/19 04:46 Mylicon - PO 80 mg QID PRN Administration GAS Triamterene/HCTZ 1 cap 03/10/19 10:00 03/12/19 09:47 Dyazide 25/37.5mg PO 1 cap DAILY KEYSHA Administration ASSESSMENT/PLAN: 3 y.o male with PMH of HTN presented for worsening lower back pain and right toe numbness/tingling who underwent T11-S11 laminectomies, osteotomies, discectomies, fusions, arthroodesis who was found to have a R lower lobe PE #Neuro stable; no issues still having some right foot numbness and left anterior thigh numbness from before surgery -will monitor #Cardio patient has history of HTN -c/w home meds -echo done; showing no evidence of right heart strain -monitor hemodynamics # Heme patient found to have right pulmonary artery PE; no risk factors (no smoking history, recent travel, fam history) -currently on Heparin drip -monitor for signs of bleeding: hgb this AM 8.0- will be receiving 1 more unit of blood -monitor PTT; CBC daily (PTT this AM 66) -echo done: normal -LE dopplers done showing no DVT -heme consulted -can transition to NOAC or coumadin -may need thrombophilia workup as an outpatient #MSK POD #4 T11-S11 laminectomies/discectomies/fusions/arthrodesis -Dilaudid PHYSICAL THERAPY COORDINATOR for pain; Oxy 5/10 -Zofran PRN for nausea -OOB -patient has passed gas however has not had a bowel movement yet -clear diet -LR @75mls/hr -incentive spirometer -follow Dr. Paredes/Sixto recommendations - #Pulmonary patient found to have PE in prox to mid right lower lobe pulmonary artery -patient currently on Heparin drip; can transition to NOAC or couamdin -monitor PTT/CBC;: PTT this AM 66 -monitor O2 sats and hemodynamics #Renal patient has rhabdo; -CPK downtrending; 1352 this AM -will continue to monitor -c/w LR @75mls/hr F/E/N LR @75mls/hr monitor electrolytes clear liquid diet DVT PPX: heparin drip dispo: transfer to tele Problem List - Problems (1) Hx of spinal surgery Code(s): Z98.890 - OTHER SPECIFIED POSTPROCEDURAL STATES (2) Pulmonary embolism Code(s): I26.99 - OTHER PULMONARY EMBOLISM WITHOUT ACUTE COR PULMONALE (3) HTN (hypertension) Code(s): I10 - ESSENTIAL (PRIMARY) HYPERTENSION Visit type - Emergency Visit Emergency Visit: Yes ED Registration Date: 03/09/19 Care time: The patient presented to the Emergency Department on the above date and was hospitalized for further evaluation of their emergent condition. - New Patient This patient is new to me today: No - Critical Care Critical Care patient: Yes Total Critical Care Time (in minutes): 35 Critical Care Statement: The care of this patient involved high complexity decision making to prevent further life threatening deterioration of the patient 's condition and/or to evaluate & treat vital organ system(s) failure or risk of failure.
[2019-03-13] MEDS ORDERED: PT OWN MED DRAWER 7, Y5N ONE ×3 (09:35→23:33)
[2019-03-13] MEDS: TRIAMTERENE AND HCTZ - 37.5 MG/25 MG CAPSULE PO SCH (09:39)
[2019-03-13] MEDS: DOCUSATE SODIUM 100 MG CAPSULE (FP) PO PRN ×2 (09:49→21:23)
--- NOTE | 2019-03-13 10:59 | PN ---
Progress Note, Physician Chief Complaint: SOB, back pain, weakness - Current Medication List Current Medications: Active Medications Bisacodyl (Dulcolax Suppository -) 10 mg DE PRN PRN PRN Reason: CONSTIPATION Cyclobenzaprine HCl (Cyclobenzaprine Hcl) 5 mg PO TID [facility] Stop: 03/21/19 20:03 Last Admin: 03/13/19 06:21 Dose: 5 mg Docusate Sodium (Colace -) 100 mg PO BID PRN PRN Reason: CONSTIPATION Last Admin: 03/13/19 09:49 Dose: 100 mg Gabapentin (Neurontin -) 300 mg PO TID [facility] Last Admin: 03/13/19 06:07 Dose: 300 mg Heparin Sodium (Porcine) (Heparin -) 1,000 unit IVPUSH PRN PRN PRN Reason: Heparin Last Admin: 03/11/19 17:34 Dose: 1,000 unit Heparin Sodium (Porcine) (Heparin -) 5,000 unit IVPUSH PRN PRN PRN Reason: Heparin Last Admin: 03/12/19 01:38 Dose: 5,000 unit Hydromorphone HCl (Hydromorphone 10 Mg/50 Ml-Ns) 10 mg CATTLE DEALER CATTLE DEALER [facility]; Protocol Last Admin: 03/12/19 23:46 Dose: 10 mg Heparin Sodium/Dextrose (Heparin Infusion -) 25,000 units in 500 mls @ 20 mls/ hr IVPB TITR [facility]; Protocol Last Admin: 03/13/19 07:41 Dose: 1,550 units/hr, 31 mls/hr Lactated Ringer's (Lactated Ringers Solution) 1,000 mls @ 75 mls/hr IV ASDIR [facility] Last Admin: 03/13/19 07:42 Dose: 75 mls/hr Ondansetron HCl (Zofran Injection) 4 mg IVPUSH Q6H PRN PRN Reason: NAUSEA AND/OR VOMITING Last Admin: 03/10/19 14:28 Dose: 4 mg Ondansetron HCl (Zofran Injection) 4 mg IVPUSH Q6H PRN PRN Reason: NAUSEA AND/OR VOMITING Promethazine HCl (Phenergan Injection -) 12.5 mg IVPUSH Q6H PRN PRN Reason: NAUSEA-FOR RESCUE AFTER 15 MIN Senna (Senna -) 1 tab PO HS [facility] Last Admin: 03/12/19 22:26 Dose: 1 tab Simethicone (Mylicon -) 80 mg PO QID PRN PRN Reason: GAS Last Admin: 03/13/19 04:46 Dose: 80 mg Triamterene/HCTZ (Dyazide 25/37.5mg) 1 cap PO DAILY KEYSHA Last Admin: 03/13/19 09:39 Dose: 1 cap - Objective Vital Signs: Vital Signs Temperature 98.2 F 03/13/19 08:00 Pulse Rate 104 H 03/13/19 08:00 Respiratory Rate 22 H 03/13/19 08:00 Blood Pressure 159/92 03/13/19 08:00 O2 Sat by Pulse Oximetry (%) 100 03/13/19 08:58 Constitutional: Yes: Well Nourished, Anxious Eyes: Yes: WNL HENT: Yes: WNL Neck: Yes: WNL, Supple Cardiovascular: Yes: Tachycardia Respiratory: Yes: Diminished Gastrointestinal: Yes: WNL Genitourinary: Yes: WNL Musculoskeletal: Yes: Back Pain, Joint Stiffness Extremities: Yes: WNL Edema: No Integumentary: Yes: WNL Wound/Incision: Yes: Clean/Dry, Well Approximated Neurological: Yes: WNL Psychiatric: Yes: WNL Labs: CBC, BMP 03/13/19 05:32 03/13/19 05:32 INR, PTT INR 1.15 (0.83-1.09) H 03/10/19 05:20 Assessment/Plan 53 y/o M with no significant PMH who was experiencing chronic back and leg pain and was brought to the hospital for surgical repair of thoraco-lumosacral disease. -S/P: 1. L1, L2, L3, L4, L5, S1 laminectomies. 2. L1, L2, L3, L4, L5, S1 osteotomies (facetectomies). 3. L4-L5 [place] Osteotomies. 4. T11-S1 posterior instrumentation. 5. L2-L3, L4-L5, L5-S1 discectomies. 6. L2-L3, L4- L5, L5-S1 posterior lumbar interbody fusion. 7. L2-L3, L4-L5, L5-S1 insertion biomechanical devices. 8. T11-S1 posterolateral arthrodesis. 9. Durotomy repair. 10. Bone allograft. 11. Bone autograft. 12. Bone marrow aspiration. 13. Complex wound closure (30cm) -cont pain management. incentive spirometry. -S/P PRBC transfusion. will give another unit today. Keep Hb>9. -diagnosed with acute PE: on heparin drip. hematology eval appreciated. outpatient hypercoagulability workup is recommended. should be discharged on eliquis. -leucocytosis, likely from PE. trending lower. -cont aggressive bowel regimen for opioid induced constipation -HTN: on dyazide. -GI, DVT prophylaxis. -cont IV fluids for rhabdomyolysis. urine RBC's are actually myoglobin from rhabdo ,not blood. no need for urology eval. trending lower. -oral diet. aspiration precautions -assessment and plan discussed with pt, his , and medical staff. is looking at different rehab options.
--- NOTE | 2019-03-13 11:44 | PN ---
Teaching Attending Note Name of Resident: Aaliyah Sales ATTENDING PHYSICIAN STATEMENT I saw and evaluated the patient. I reviewed the resident's note and discussed the case with the resident. I agree with the resident's findings and plan as documented. SUBJECTIVE: Patient seen and examined in the ICU. Denies shortness of breath or chest pain. H/H stable. Some discomfort at the surgical site, but improving. OBJECTIVE: Intake & Output 03/10/19 03/11/19 03/12/19 03/13/19 23:59 23:59 23:59 23:59 Intake Total 1787 3466.4 2146 1421 Output Total 1500 3380 1510 700 Balance 287 86.4 636 721 Weight 229 lb 229 lb 9.6 oz 233 lb Last Vital Signs Temp Pulse Resp BP Pulse Ox 98.2 F 104 H 22 H 159/92 100 03/13/19 08:00 03/13/19 08:00 03/13/19 08:00 03/13/19 08:00 03/13/19 08:58 Active Medications Bisacodyl (Dulcolax Suppository -) 10 mg [place] PRN PRN PRN Reason: CONSTIPATION Cyclobenzaprine HCl (Cyclobenzaprine Hcl) 5 mg PO TID [facility] Stop: 03/21/19 20:03 Last Admin: 03/13/19 06:21 Dose: 5 mg Docusate Sodium (Colace -) 100 mg PO BID PRN PRN Reason: CONSTIPATION Last Admin: 03/13/19 09:49 Dose: 100 mg Gabapentin (Neurontin -) 300 mg PO TID [facility] Last Admin: 03/13/19 06:07 Dose: 300 mg Heparin Sodium (Porcine) (Heparin -) 1,000 unit IVPUSH PRN PRN PRN Reason: Heparin Last Admin: 03/11/19 17:34 Dose: 1,000 unit Heparin Sodium (Porcine) (Heparin -) 5,000 unit IVPUSH PRN PRN PRN Reason: Heparin Last Admin: 03/12/19 01:38 Dose: 5,000 unit Hydromorphone HCl (Hydromorphone 10 Mg/50 Ml-Ns) 10 mg RN MATERNITY RN MATERNITY [facility]; Protocol Last Admin: 03/12/19 23:46 Dose: 10 mg Heparin Sodium/Dextrose (Heparin Infusion -) 25,000 units in 500 mls @ 20 mls/ hr IVPB TITR KEYSHA; Protocol Last Admin: 03/13/19 07:41 Dose: 1,550 units/hr, 31 mls/hr Lactated Ringer's (Lactated Ringers Solution) 1,000 mls @ 75 mls/hr IV ASDIR KEYSHA Last Admin: 03/13/19 07:42 Dose: 75 mls/hr Ondansetron HCl (Zofran Injection) 4 mg IVPUSH Q6H PRN PRN Reason: NAUSEA AND/OR VOMITING Last Admin: 03/10/19 14:28 Dose: 4 mg Ondansetron HCl (Zofran Injection) 4 mg IVPUSH Q6H PRN PRN Reason: NAUSEA AND/OR VOMITING Promethazine HCl (Phenergan Injection -) 12.5 mg IVPUSH Q6H PRN PRN Reason: NAUSEA-FOR RESCUE AFTER 15 MIN Senna (Senna -) 1 tab PO HS [facility] Last Admin: 03/12/19 22:26 Dose: 1 tab Simethicone (Mylicon -) 80 mg PO QID PRN PRN Reason: GAS Last Admin: 03/13/19 04:46 Dose: 80 mg Triamterene/HCTZ (Dyazide 25/37.5mg) 1 cap PO DAILY [facility] Last Admin: 03/13/19 09:39 Dose: 1 cap Gen: NAD at rest Heart: RRR Lung: decreased breath sounds at the bases Abd: soft, nontender Ext: no edema, drain with minimal drainage Laboratory Results - last 24 hr 03/09/19 03/12/19 03/12/19 06:24 13:02 13:46 WBC 13.8 H RBC 2.69 L Hgb 8.0 L Hct 23.3 L MCV 86.8 MCH 29.8 MCHC 34.4 RDW 13.0 Plt Count 156 MPV 8.9 PTT (Actin FS) Sodium Potassium Chloride Carbon Dioxide Anion Gap BUN Creatinine Est GFR (CKD-EPI)AfAm Est GFR (CKD-EPI)NonAf Random Glucose Calcium Phosphorus Magnesium Creatine Kinase Creatine Kinase Index CK-MB (CK-2) Blood Type A POSITIVE A POSITIVE Antibody Screen Negative Negative Crossmatch See Detail Crossmatch IS Only See Detail 03/12/19 03/13/19 03/13/19 20:25 05:32 05:32 WBC 11.1 H 8.5 RBC 2.81 L 2.66 L Hgb 8.2 L 8.0 L Hct 24.6 L 22.9 L MCV 87.7 86.2 MCH 29.4 30.1 MCHC 33.5 34.9 RDW 13.4 13.1 Plt Count 144 149 MPV 9.1 8.6 PTT (Actin FS) 66.7 H Sodium Potassium Chloride Carbon Dioxide Anion Gap BUN Creatinine Est GFR (CKD-EPI)AfAm Est GFR (CKD-EPI)NonAf Random Glucose Calcium Phosphorus Magnesium Creatine Kinase Creatine Kinase Index CK-MB (CK-2) Blood Type Antibody Screen Crossmatch Crossmatch IS Only 03/13/19 05:32 WBC RBC Hgb Hct MCV MCH MCHC RDW Plt Count MPV PTT (Actin FS) Sodium 138 Potassium 3.4 L Chloride 98 Carbon Dioxide 34 H Anion Gap 6 L BUN 11.4 Creatinine 0.6 Est GFR (CKD-EPI)AfAm 132.11 Est GFR (CKD-EPI)NonAf 113.99 Random Glucose 108 H Calcium 7.8 L Phosphorus 2.8 Magnesium 2.4 Creatine Kinase 1352 H Creatine Kinase Index 0.2 CK-MB (CK-2) 3.9 H Blood Type Antibody Screen Crossmatch Crossmatch IS Only ASSESSMENT AND PLAN: Lumbar Stenosis with Radiculopathy and Neurogenic Claudication s/p L1-S1 Laminectomies/Osteotomies/Posterior Instrumentation/PLIF/ Biomechanical Devices Acute Pulmonary Emboli - continue anticoagulation - monitor H/H - pain control - Incentive spirometry - PO when flatus - bowel regimen - D/C [place] when OOB - Floor Dr Renae
--- NOTE | 2019-03-13 15:08 | PN ---
Physical Exam: SUBJECTIVE: Patient seen and examined, still complaining of left leg pain and back pain. OBJECTIVE: Vital Signs Period Temp Pulse Resp BP Sys/Augustin Pulse Ox Last 24 Hr 98.1 F-98.5 F 83-110 16-22 134-160/85-119 100-119 GENERAL: Awake, alert, and fully oriented, in no acute distress. HEAD: Normal with no signs of trauma. EYES: Extraocular movements intact, sclera anicteric, conjunctiva clear. EARS, NOSE, THROAT: Oropharynx clear without exudates. Moist mucous membranes. NECK: Normal range of motion, supple without lymphadenopathy. LUNGS: Diminished bilaterally. No wheezes, and no crackles. No accessory muscle use. HEART: Regular rate and rhythm, normal S1 and S2 without murmur, rub or gallop. ABDOMEN: Obese, soft, nontender, +distended, hypoactive bowel sounds, no guarding, no rebound, no masses. LOWER EXTREMITIES: 2+ pulses. No peripheral edema. NEUROLOGICAL: non facial symmetry, normal speech, gait not assessed. PSYCHIATRIC: Cooperative. Good eye contact. Appropriate mood and affect. SKIN: Warm, dry, no rashes or lesions noted. TESTICLES: nl, no masses, no skin rash Laboratory Results - last 24 hr 03/12/19 03/12/19 03/13/19 13:46 20:25 05:32 WBC 11.1 H 8.5 RBC 2.81 L 2.66 L Hgb 8.2 L 8.0 L Hct 24.6 L 22.9 L MCV 87.7 86.2 MCH 29.4 30.1 MCHC 33.5 34.9 RDW 13.4 13.1 Plt Count 144 149 MPV 9.1 8.6 PTT (Actin FS) Sodium Potassium Chloride Carbon Dioxide Anion Gap BUN Creatinine Est GFR (CKD-EPI)AfAm Est GFR (CKD-EPI)NonAf Random Glucose Calcium Phosphorus Magnesium Creatine Kinase Creatine Kinase Index CK-MB (CK-2) Blood Type A POSITIVE Antibody Screen Negative Crossmatch See Detail 03/13/19 03/13/19 05:32 05:32 WBC RBC Hgb Hct MCV MCH MCHC RDW Plt Count MPV PTT (Actin FS) 66.7 H Sodium 138 Potassium 3.4 L Chloride 98 Carbon Dioxide 34 H Anion Gap 6 L BUN 11.4 Creatinine 0.6 Est GFR (CKD-EPI)AfAm 132.11 Est GFR (CKD-EPI)NonAf 113.99 Random Glucose 108 H Calcium 7.8 L Phosphorus 2.8 Magnesium 2.4 Creatine Kinase 1352 H Creatine Kinase Index 0.2 CK-MB (CK-2) 3.9 H Blood Type Antibody Screen Crossmatch Active Medications Generic Name Dose Route Start Last Admin Trade Name Freq PRN Reason Stop Dose Admin Bisacodyl 10 mg 03/12/19 07:52 Dulcolax Suppository - [place] PRN PRN CONSTIPATION Cyclobenzaprine HCl 5 mg 03/11/19 20:04 03/13/19 06:21 Cyclobenzaprine Hcl PO 03/21/19 20:03 5 mg TID KEYHSA Administration Docusate Sodium 100 mg 03/11/19 07:50 03/13/19 09:49 Colace - PO 100 mg BID PRN Administration CONSTIPATION Gabapentin 300 mg 03/12/19 14:00 03/13/19 06:07 Neurontin - PO 300 mg TID KEYSHA Administration Heparin Sodium (Porcine) 1,000 unit 03/09/19 20:42 03/11/19 17:34 Heparin - IVPUSH 1,000 unit PRN PRN Administration Heparin Heparin Sodium (Porcine) 5,000 unit 03/09/19 20:42 03/12/19 01:38 Heparin - IVPUSH 5,000 unit PRN PRN Administration Heparin Hydromorphone HCl 10 mg 03/12/19 22:45 03/12/19 23:46 Hydromorphone 10 Mg/50 Ml-Ns ALL AROUND PATTERNMAKER 10 mg ALL AROUND PATTERNMAKER KEYSHA Administration Protocol Heparin Sodium/Dextrose 25,000 units in 500 mls @ 20 mls/hr 03/09/19 20:45 07:41 Heparin Infusion - IVPB 1,550 units/hr TITR KEYSHA 31 mls/hr Administration Protocol 1,000 UNITS/HR Lactated Ringer's 1,000 mls @ 75 mls/hr 03/11/19 08:00 03/13/19 07:42 Lactated Ringers Solution IV 75 mls/hr ASDIR KEYSHA Administration Ondansetron HCl 4 mg 03/09/19 15:54 03/10/19 14:28 Zofran Injection IVPUSH 4 mg Q6H PRN Administration NAUSEA AND/OR VOMITING Ondansetron HCl 4 mg 03/09/19 16:00 Zofran Injection IVPUSH Q6H PRN NAUSEA AND/OR VOMITING Promethazine HCl 12.5 mg 03/09/19 16:00 Phenergan Injection - IVPUSH Q6H PRN NAUSEA-FOR RESCUE AFTER 15 MIN Senna 1 tab 03/11/19 22:00 03/12/19 22:26 Senna - PO 1 tab HS KEYSHA Administration Simethicone 80 mg 03/11/19 11:41 03/13/19 04:46 Mylicon - PO 80 mg QID PRN Administration GAS Triamterene/HCTZ 1 cap 03/10/19 10:00 03/13/19 09:39 Dyazide 25/37.5mg PO 1 cap DAILY KEYSHA Administration ASSESSMENT/PLAN: The pt is a 53 year old male with PMH of chronic back pain since 2009, admitted to ICU s/p T11-S1 laminectomies, hem/onc consulted for PE. Plan: We believe that PE was provoked by his surgery. Please continue AC, hemodynamic monitoring. We recommend age related cancer screening. It may include CT chest/abdomen/ pelvis, colonoscopy. As outpatient we recommend thrombophilia workup. It includes: homocysteine, MTHFR, factor 5 Leiden, Protrombin gene 2, ALC, b2 glycoprotein, anticardiolipin. Factor c,s, AT3 will not be indicated as it may be lowered due to anticoagulation. Dispo: We will continue to follow the patient. Thank you for this consultative opportunity. Problem List - Problems (1) Hx of spinal surgery Code(s): Z98.890 - OTHER SPECIFIED POSTPROCEDURAL STATES (2) Pulmonary embolism Code(s): I26.99 - OTHER PULMONARY EMBOLISM WITHOUT ACUTE COR PULMONALE Visit type - Emergency Visit Emergency Visit: Yes ED Registration Date: 03/09/19 Care time: The patient presented to the Emergency Department on the above date and was hospitalized for further evaluation of their emergent condition. - New Patient This patient is new to me today: No - Critical Care Critical Care patient: No - Discharge Referral Referred to [facility] Med [facility] No
--- NOTE | 2019-03-13 15:19 | PN ---
Progress Note (short form) - Note Progress Note: Anesthesia/ pain management follow-up Patient using the recreation attendant supervisor very rarely, tolerating clears. will d/c recreation attendant supervisor today.
--- NOTE | 2019-03-13 16:40 | PN ---
Teaching Attending Note Name of Resident: Gavi Dover ATTENDING PHYSICIAN STATEMENT I saw and evaluated the patient. I reviewed the resident's note and discussed the case with the resident. I agree with the resident's findings and plan as documented. SUBJECTIVE: Patient seen and examined On therapeutic doses of heparin Complains of lack of sensation below right knee. Right distal foot somewhat cool relative to left . For duplex study. Last Vital Signs Temp Pulse Resp BP Pulse Ox 98.5 F 92 H 16 134/95 100 03/13/19 14:00 03/13/19 14:00 03/13/19 14:00 03/13/19 14:00 03/13/19 08:58 HEENT: MAX, EOM Intact Oropharynx: No thrush, No mucositis Cor: RSR, No murmurs, No gallops Lungs: diminished breath sounds Abd: Soft, Normal bowel sounds, No organomegaly Ext RLE distally - cool relative to left CBC, BMP 03/13/19 05:32 03/13/19 05:32 Current Medications Generic Name Dose Route Start Last Admin Trade Name Freq PRN Reason Stop Dose Admin Bisacodyl 10 mg 03/12/19 07:52 Dulcolax Suppository - [place] PRN PRN CONSTIPATION Cyclobenzaprine HCl 5 mg 03/11/19 20:04 03/13/19 15:13 Cyclobenzaprine Hcl PO 03/21/19 20:03 5 mg TID KEYSHA Administration Docusate Sodium 100 mg 03/11/19 07:50 03/13/19 09:49 Colace - PO 100 mg BID PRN Administration CONSTIPATION Gabapentin 300 mg 03/12/19 14:00 03/13/19 15:12 Neurontin - PO 300 mg TID KEYSHA Administration Heparin Sodium (Porcine) 1,000 unit 03/09/19 20:42 03/11/19 17:34 Heparin - IVPUSH 1,000 unit PRN PRN Administration Heparin Heparin Sodium (Porcine) 5,000 unit 03/09/19 20:42 03/12/19 01:38 Heparin - IVPUSH 5,000 unit PRN PRN Administration Heparin Heparin Sodium/Dextrose 25,000 units in 500 mls @ 20 mls/hr 03/09/19 20:45 07:41 Heparin Infusion - IVPB 1,550 units/hr TITR KEYSHA 31 mls/hr Administration Protocol 1,000 UNITS/HR Lactated Ringer's 1,000 mls @ 75 mls/hr 03/11/19 08:00 03/13/19 07:42 Lactated Ringers Solution IV 75 mls/hr ASDIR KEYSHA Administration Ondansetron HCl 4 mg 03/09/19 15:54 03/10/19 14:28 Zofran Injection IVPUSH 4 mg Q6H PRN Administration NAUSEA AND/OR VOMITING Ondansetron HCl 4 mg 03/09/19 16:00 Zofran Injection IVPUSH Q6H PRN NAUSEA AND/OR VOMITING Oxycodone HCl 5 mg 03/13/19 15:50 Roxicodone - PO 03/14/19 15:49 Q6H PRN PAIN LEVEL 1-5 Promethazine HCl 12.5 mg 03/09/19 16:00 Phenergan Injection - IVPUSH Q6H PRN NAUSEA-FOR RESCUE AFTER 15 MIN Senna 1 tab 03/11/19 22:00 03/12/19 22:26 Senna - PO 1 tab HS KEYSHA Administration Simethicone 80 mg 03/11/19 11:41 03/13/19 04:46 Mylicon - PO 80 mg QID PRN Administration GAS Triamterene/HCTZ 1 cap 03/10/19 10:00 03/13/19 09:39 Dyazide 25/37.5mg PO 1 cap DAILY KEYSHA Administration Impression: S/P spinal surgery P.E. On therapeutic heparin Cool toes right foot Continue therapeutichepain dosing Duplex LE> OBJECTIVE: ASSESSMENT AND PLAN:
[2019-03-13] MEDS ORDERED: BISACODYL 10 MG SUPP.RECT RC PRN (20:01)
[2019-03-13] MEDS ORDERED: PROMETHAZINE HCL 25 MG/1 ML VIAL IVPUSH PRN (20:01)
[2019-03-13] MEDS ORDERED: HEPARIN NA (PORCINE) 5,000 UNITS/ML 1ML VIAL IVPUSH PRN ×3 (20:01)
[2019-03-13] MEDS ORDERED: SIMETHICONE 80 MG TAB.CHEW (FP) PO PRN (20:01)
[2019-03-13] MEDS ORDERED: ONDANSETRON 4 MG/2 ML VIAL IVPUSH PRN ×2 (20:01)
[2019-03-13] MEDS: SENNOSIDES 8.6MG TABLET (FP) PO SCH (21:23)
[2019-03-13] MEDS: oxyCODONE HCL 5 MG TABLET PO PRN (21:23)
[2019-03-14] MEDS: oxyCODONE HCL 5 MG TABLET PO PRN ×3 (02:54→23:07)
[2019-03-14] MEDS: CYCLOBENZAPRINE HCL 5 MG TABLET PO SCH ×3 (05:47→21:34)
[2019-03-14] MEDS: GABAPENTIN 300 MG CAPSULE (FP) PO SCH ×3 (05:47→21:34)
[2019-03-14 06:22] LABS: HEMATOCRIT 27.7 % (35.4-49); HEMOGLOBIN 9.6 GM/dL (11.7-16.9); MCH 29.8 pg (25.7-33.7); MCHC 34.7 g/dl (32.0-35.9); MEAN CELL VOLUME 85.6 fl (80-96); MEAN PLT VOLUME 8.4 fl (7.5-11.1); PLATELET COUNT 200 K/MM3 (134-434); RBC 3.24 M/mm3 (4.00-5.60); RDW 13.5 % (11.9-15.9); WHITE BLOOD COUNT 8.8 K/mm3 (4.0-10.0)
[2019-03-14] MEDS ORDERED: PT OWN MED DRAWER 7, Y5N ONE ×3 (10:07→21:30)
[2019-03-14] MEDS: TRIAMTERENE AND HCTZ - 37.5 MG/25 MG CAPSULE PO SCH (10:08)
[2019-03-14] MEDS: HEPARIN INFUSION - 25,000 UNITS/500 ML INFUS.BAG IVPB SCH (13:42)
--- NOTE | 2019-03-14 17:23 | PN ---
Progress Note, Physician Chief Complaint: SOB, back pain, weakness - Current Medication List Current Medications: Active Medications Bisacodyl (Dulcolax Suppository -) 10 mg RC PRN PRN PRN Reason: CONSTIPATION Cyclobenzaprine HCl (Cyclobenzaprine Hcl) 5 mg PO TID [facility] Stop: 03/21/19 20:03 Last Admin: 03/14/19 13:41 Dose: 5 mg Docusate Sodium (Colace -) 100 mg PO BID PRN PRN Reason: CONSTIPATION Last Admin: 03/13/19 21:23 Dose: 100 mg Gabapentin (Neurontin -) 300 mg PO TID [facility] Last Admin: 03/14/19 13:41 Dose: 300 mg Heparin Sodium (Porcine) (Heparin -) 1,000 unit IVPUSH PRN PRN PRN Reason: Heparin Heparin Sodium (Porcine) (Heparin -) 5,000 unit IVPUSH PRN PRN PRN Reason: Heparin Last Admin: 03/14/19 08:30 Dose: 5,000 unit Heparin Sodium (Porcine) (Heparin -) 1,000 unit IVPUSH PRN PRN PRN Reason: Heparin Heparin Sodium (Porcine) (Heparin -) 5,000 unit IVPUSH PRN PRN PRN Reason: Heparin Heparin Sodium/Dextrose (Heparin Infusion -) 25,000 units in 500 mls @ 20 mls/ hr IVPB TITR [facility]; Protocol Last Admin: 03/14/19 13:42 Dose: 1,700 units/hr, 34 mls/hr Ondansetron HCl (Zofran Injection) 4 mg IVPUSH Q6H PRN PRN Reason: NAUSEA AND/OR VOMITING Ondansetron HCl (Zofran Injection) 4 mg IVPUSH Q6H PRN PRN Reason: NAUSEA AND/OR VOMITING Promethazine HCl (Phenergan Injection -) 12.5 mg IVPUSH Q6H PRN PRN Reason: NAUSEA-FOR RESCUE AFTER 15 MIN Senna (Senna -) 1 tab PO HS [facility] Last Admin: 03/13/19 21:23 Dose: 1 tab Simethicone (Mylicon -) 80 mg PO QID PRN PRN Reason: GAS Triamterene/HCTZ (Dyazide 25/37.5mg) 1 cap PO DAILY [facility] Last Admin: 03/14/19 10:08 Dose: 1 cap - Objective Vital Signs: Vital Signs Temperature 99.2 F 03/14/19 15:27 Pulse Rate 98 H 03/14/19 15:27 Respiratory Rate 20 03/14/19 15:27 Blood Pressure 156/82 03/14/19 15:27 O2 Sat by Pulse Oximetry (%) 98 03/14/19 09:00 Constitutional: Yes: Well Nourished, No Distress Eyes: Yes: WNL HENT: Yes: WNL Neck: Yes: WNL Cardiovascular: Yes: WNL Respiratory: Yes: WNL Gastrointestinal: Yes: WNL Genitourinary: Yes: WNL Musculoskeletal: Yes: Joint Stiffness Extremities: Yes: WNL Wound/Incision: Yes: Clean/Dry Neurological: Yes: WNL ...Motor Strength: WNL Psychiatric: Yes: WNL Labs: CBC, BMP 03/14/19 05:40 03/13/19 05:32 INR, PTT INR 1.15 (0.83-1.09) H 03/10/19 05:20 Assessment/Plan 53 y/o M with no significant PMH who was experiencing chronic back and leg pain and was brought to the hospital for surgical repair of thoraco-lumosacral disease. -S/P: 1. L1, L2, L3, L4, L5, S1 laminectomies. 2. L1, L2, L3, L4, L5, S1 osteotomies (facetectomies). 3. L4-L5 [place] Osteotomies. 4. T11-S1 posterior instrumentation. 5. L2-L3, L4-L5, L5-S1 discectomies. 6. L2-L3, L4- L5, L5-S1 posterior lumbar interbody fusion. 7. L2-L3, L4-L5, L5-S1 insertion biomechanical devices. 8. T11-S1 posterolateral arthrodesis. 9. Durotomy repair. 10. Bone allograft. 11. Bone autograft. 12. Bone marrow aspiration. 13. Complex wound closure (30cm). clinically improving. -cont pain management. incentive spirometry. -S/P PRBC transfusion. will give another unit today. Keep Hb>9. improved. -diagnosed with acute PE: on heparin drip. hematology eval appreciated. outpatient hypercoagulability workup is recommended. should be discharged on eliquis. -cont aggressive bowel regimen for opioid induced constipation -HTN: on dyazide. -GI, DVT prophylaxis. -cont IV fluids for rhabdomyolysis. urine RBC's are actually myoglobin from rhabdo ,not blood. no need for urology eval. trending lower. -oral diet. aspiration precautions -assessment and plan discussed with pt, his , and medical staff. hopefully will DC to rehab on Saturday if stable.
[2019-03-14] MEDS: SENNOSIDES 8.6MG TABLET (FP) PO SCH (21:34)
[2019-03-15] MEDS: HEPARIN INFUSION - 25,000 UNITS/500 ML INFUS.BAG IVPB SCH ×3 (02:54→20:21)
[2019-03-15] MEDS: CYCLOBENZAPRINE HCL 5 MG TABLET PO SCH ×3 (05:37→22:30)
[2019-03-15] MEDS: GABAPENTIN 300 MG CAPSULE (FP) PO SCH ×3 (05:37→22:11)
[2019-03-15 06:02] LABS: HEMATOCRIT 30.1 % (35.4-49); HEMOGLOBIN 10.3 GM/dL (11.7-16.9); MCH 29.2 pg (25.7-33.7); MCHC 34.1 g/dl (32.0-35.9); MEAN CELL VOLUME 85.7 fl (80-96); MEAN PLT VOLUME 8.2 fl (7.5-11.1); PLATELET COUNT 242 K/MM3 (134-434); RBC 3.51 M/mm3 (4.00-5.60); RDW 13.7 % (11.9-15.9); WHITE BLOOD COUNT 10.3 K/mm3 (4.0-10.0)
[2019-03-15] MEDS: HEPARIN NA (PORCINE) 5,000 UNITS/ML 1ML VIAL IVPUSH PRN ×2 (06:47→15:55)
[2019-03-15] MEDS: oxyCODONE HCL 5 MG TABLET PO PRN ×3 (08:17→22:11)
[2019-03-15] MEDS ORDERED: PT OWN MED DRAWER 7, Y5N ONE ×4 (10:17→22:37)
[2019-03-15] MEDS: TRIAMTERENE AND HCTZ - 37.5 MG/25 MG CAPSULE PO SCH (10:28)
[2019-03-15] MEDS: DOCUSATE SODIUM 100 MG CAPSULE (FP) PO PRN (15:04)
--- NOTE | 2019-03-15 16:07 | PN ---
Progress Note, Physician Chief Complaint: SOB, back pain, weakness - Current Medication List Current Medications: Active Medications Bisacodyl (Dulcolax Suppository -) 10 mg RC PRN PRN PRN Reason: CONSTIPATION Last Admin: 03/15/19 15:00 Dose: 10 mg Cyclobenzaprine HCl (Cyclobenzaprine Hcl) 5 mg PO TID [facility] Stop: 03/21/19 20:03 Last Admin: 03/15/19 14:07 Dose: 5 mg Docusate Sodium (Colace -) 100 mg PO BID PRN PRN Reason: CONSTIPATION Last Admin: 03/15/19 15:04 Dose: 100 mg Gabapentin (Neurontin -) 300 mg PO TID [facility] Last Admin: 03/15/19 14:07 Dose: 300 mg Heparin Sodium (Porcine) (Heparin -) 1,000 unit IVPUSH PRN PRN PRN Reason: Heparin Last Admin: 03/15/19 15:55 Dose: 1,000 unit Heparin Sodium (Porcine) (Heparin -) 5,000 unit IVPUSH PRN PRN PRN Reason: Heparin Heparin Sodium/Dextrose (Heparin Infusion -) 25,000 units in 500 mls @ 20 mls/ hr IVPB TITR [facility]; Protocol Last Admin: 03/15/19 15:57 Dose: 1,900 units/hr, 38 mls/hr Ondansetron HCl (Zofran Injection) 4 mg IVPUSH Q6H PRN PRN Reason: NAUSEA AND/OR VOMITING Oxycodone HCl (Roxicodone -) 5 mg PO Q6H PRN PRN Reason: PAIN 1-5 Last Admin: 03/15/19 14:09 Dose: 5 mg Promethazine HCl (Phenergan Injection -) 12.5 mg IVPUSH Q6H PRN PRN Reason: NAUSEA-FOR RESCUE AFTER 15 MIN Senna (Senna -) 1 tab PO HS [facility] Last Admin: 03/14/19 21:34 Dose: 1 tab Simethicone (Mylicon -) 80 mg PO QID PRN PRN Reason: GAS Triamterene/HCTZ (Dyazide 25/37.5mg) 1 cap PO DAILY [facility] Last Admin: 03/15/19 10:28 Dose: 1 cap - Objective Vital Signs: Vital Signs Temperature 98.0 F 03/15/19 10:00 Pulse Rate 100 H 03/15/19 14:00 Respiratory Rate 18 03/15/19 14:00 Blood Pressure 126/76 03/15/19 14:00 O2 Sat by Pulse Oximetry (%) 100 03/15/19 10:00 Constitutional: Yes: Well Nourished, No Distress Eyes: Yes: WNL HENT: Yes: WNL Neck: Yes: WNL Cardiovascular: Yes: WNL Respiratory: Yes: WNL Gastrointestinal: Yes: Distention Genitourinary: Yes: WNL Musculoskeletal: Yes: Back Pain, Joint Stiffness Extremities: Yes: WNL Edema: No Integumentary: Yes: WNL Wound/Incision: Yes: Clean/Dry, Well Approximated Neurological: Yes: WNL ...Motor Strength: WNL Psychiatric: Yes: WNL Labs: CBC, BMP 03/15/19 05:30 03/13/19 05:32 INR, PTT INR 1.15 (0.83-1.09) H 03/10/19 05:20 Assessment/Plan 53 y/o M with no significant PMH who was experiencing chronic back and leg pain and was brought to the hospital for surgical repair of thoraco-lumosacral disease. found to have acute PE. -S/P: 1. L1, L2, L3, L4, L5, S1 laminectomies. 2. L1, L2, L3, L4, L5, S1 osteotomies (facetectomies). 3. L4-L5 [place] Osteotomies. 4. T11-S1 posterior instrumentation. 5. L2-L3, L4-L5, L5-S1 discectomies. 6. L2-L3, L4- L5, L5-S1 posterior lumbar interbody fusion. 7. L2-L3, L4-L5, L5-S1 insertion biomechanical devices. 8. T11-S1 posterolateral arthrodesis. 9. Durotomy repair. 10. Bone allograft. 11. Bone autograft. 12. Bone marrow aspiration. 13. Complex wound closure (30cm). clinically improving. -cont pain management. incentive spirometry. -S/P 2 units PRBC transfusion. improving. -diagnosed with acute PE: on heparin drip. hematology eval appreciated. recommend to cont current management. outpatient hypercoagulability workup is recommended. should be discharged on eliquis. -cont aggressive bowel regimen for opioid induced constipation. Pt passing gas. BM not regular yet. -HTN: on dyazide. -GI, DVT prophylaxis. -cont IV fluids for rhabdomyolysis. urine RBC's are actually myoglobin from rhabdo ,not blood. no need for urology eval. trending lower. -oral diet. aspiration precautions -assessment and plan discussed with pt, his , and medical staff. hopefully will DC to rehab next week.
[2019-03-15] MEDS ORDERED: PANTOPRAZOLE 20 MG TABLET (FP) PO ONE (19:59)
[2019-03-15] MEDS: SENNOSIDES 8.6MG TABLET (FP) PO SCH (22:13)
[2019-03-16] MEDS: HEPARIN INFUSION - 25,000 UNITS/500 ML INFUS.BAG IVPB SCH ×2 (05:49→21:03)
[2019-03-16] MEDS ORDERED: PT OWN MED DRAWER 7, Y5N ONE ×3 (06:26→20:43)
[2019-03-16] MEDS: oxyCODONE HCL 5 MG TABLET PO PRN ×3 (06:27→20:45)
[2019-03-16] MEDS: CYCLOBENZAPRINE HCL 5 MG TABLET PO SCH ×3 (06:27→21:03)
[2019-03-16] MEDS: GABAPENTIN 300 MG CAPSULE (FP) PO SCH ×3 (06:27→21:03)
[2019-03-16 06:57] LABS: HEMATOCRIT 30.5 % (35.4-49); HEMOGLOBIN 10.4 GM/dL (11.7-16.9); MCH 29.7 pg (25.7-33.7); MCHC 34.2 g/dl (32.0-35.9); MEAN PLT VOLUME 8.2 fl (7.5-11.1); RBC 3.51 M/mm3 (4.00-5.60); RDW 13.5 % (11.9-15.9); WHITE BLOOD COUNT 10.1 K/mm3 (4.0-10.0)
[2019-03-16 08:30] LABS: PLATELET COUNT 244 K/MM3 (134-434)
[2019-03-16] MEDS: TRIAMTERENE AND HCTZ - 37.5 MG/25 MG CAPSULE PO SCH (10:22)
[2019-03-16 13:45] VITALS: BMI 34.0
--- NOTE | 2019-03-16 16:52 | PN ---
Progress Note (short form) - Note Progress Note: 53M s/p L1-S1 decompression & T11-S1 posterolateral instrumented arthrodesis POD #7. Pt. has confirmed post-operative pulmonary embolism; receiving therapeutic anticoagulation. Pain well controlled. Pt. denies overnight history of headaches, chest pain, shortness of breath, nausea, vomiting, chills, & sweats. (+) Lambert; (+) Flatus; (+) BM. No physical therapy today. All labs and vitals reviewed. PE: AAO x 3, NAD. L-Spine: Incision, dressing C/D/I. B/L LE M: L2-S1 intact, minimum 3/5. B/L LE S: L2-S1 2/2. 53M s/p L1-S1 decompression & T11-S1 posterolateral instrumented arthrodesis POD #7. -Pain control: NO NSAID's. -Nursing care: fastidious avoidance of decubitus ulcers; log roll/place on wedge pillows every 2 hours; rolled up towels under the ankles to offload the heels. -DVT PPx: -Mechanical only: BEAU's, SCD's. -Chemical: will switch to oral therapeutic DVT PPx. -Incentive spirometry q15 min. -Regular diet. -PT/OT/Rehab, OOB. -WBAT B/L LE. -Raised toilet seat. -No bending, lifting (>5 lbs), or twisting for 9-12 months. -Care per ICU & medical hospitalist Dr. Henson. -Discharge planning: [facility]; f/u 7-10 days after discharge from [place] at [facility] office; call for appointment; . -Will follow. Rex Paredes MD (Orthopaedic Surgery).
--- NOTE | 2019-03-16 18:33 | PN ---
Progress Note, Physician Chief Complaint: SOB, back pain, weakness - Current Medication List Current Medications: Active Medications Bisacodyl (Dulcolax Suppository -) 10 mg RC PRN PRN PRN Reason: CONSTIPATION Last Admin: 03/15/19 15:00 Dose: 10 mg Cyclobenzaprine HCl (Cyclobenzaprine Hcl) 5 mg PO TID [facility] Stop: 03/21/19 20:03 Last Admin: 03/16/19 13:52 Dose: 5 mg Docusate Sodium (Colace -) 100 mg PO BID PRN PRN Reason: CONSTIPATION Last Admin: 03/15/19 15:04 Dose: 100 mg Gabapentin (Neurontin -) 300 mg PO TID [facility] Last Admin: 03/16/19 13:52 Dose: 300 mg Heparin Sodium (Porcine) (Heparin -) 1,000 unit IVPUSH PRN PRN PRN Reason: Heparin Last Admin: 03/15/19 15:55 Dose: 1,000 unit Heparin Sodium (Porcine) (Heparin -) 5,000 unit IVPUSH PRN PRN PRN Reason: Heparin Heparin Sodium/Dextrose (Heparin Infusion -) 25,000 units in 500 mls @ 20 mls/ hr IVPB TITR [facility]; Protocol Last Titration: 03/16/19 17:50 Dose: 1,900 units/hr, 38 mls/hr Ondansetron HCl (Zofran Injection) 4 mg IVPUSH Q6H PRN PRN Reason: NAUSEA AND/OR VOMITING Oxycodone HCl (Roxicodone -) 5 mg PO Q6H PRN PRN Reason: PAIN 1-5 Last Admin: 03/16/19 12:20 Dose: 5 mg Promethazine HCl (Phenergan Injection -) 12.5 mg IVPUSH Q6H PRN PRN Reason: NAUSEA-FOR RESCUE AFTER 15 MIN Senna (Senna -) 1 tab PO HS [facility] Last Admin: 03/15/19 22:13 Dose: 1 tab Simethicone (Mylicon -) 80 mg PO QID PRN PRN Reason: GAS Triamterene/HCTZ (Dyazide 25/37.5mg) 1 cap PO DAILY [facility] Last Admin: 03/16/19 10:22 Dose: 1 cap - Objective Vital Signs: Vital Signs Temperature 98.5 F 03/16/19 18:21 Pulse Rate 97 H 03/16/19 18:21 Respiratory Rate 20 03/16/19 18:21 Blood Pressure 131/81 03/16/19 18:21 O2 Sat by Pulse Oximetry (%) 99 03/16/19 09:00 Constitutional: Yes: Well Nourished, No Distress Eyes: Yes: WNL HENT: Yes: WNL Neck: Yes: WNL Cardiovascular: Yes: WNL Respiratory: Yes: WNL Gastrointestinal: Yes: WNL Genitourinary: Yes: WNL Musculoskeletal: Yes: Back Pain, Joint Stiffness Extremities: Yes: WNL Edema: No Integumentary: Yes: WNL Wound/Incision: Yes: Clean/Dry, Well Approximated Neurological: Yes: WNL ...Motor Strength: WNL Psychiatric: Yes: WNL Labs: CBC, BMP 03/16/19 06:00 03/13/19 05:32 INR, PTT INR 1.15 (0.83-1.09) H 03/10/19 05:20 Assessment/Plan 53 y/o M with no significant PMH who was experiencing chronic back and leg pain and was brought to the hospital for surgical repair of thoraco-lumosacral disease. found to have acute PE. -S/P: 1. L1, L2, L3, L4, L5, S1 laminectomies. 2. L1, L2, L3, L4, L5, S1 osteotomies (facetectomies). 3. L4-L5 [place] Osteotomies. 4. T11-S1 posterior instrumentation. 5. L2-L3, L4-L5, L5-S1 discectomies. 6. L2-L3, L4- L5, L5-S1 posterior lumbar interbody fusion. 7. L2-L3, L4-L5, L5-S1 insertion biomechanical devices. 8. T11-S1 posterolateral arthrodesis. 9. Durotomy repair. 10. Bone allograft. 11. Bone autograft. 12. Bone marrow aspiration. 13. Complex wound closure (30cm). clinically improved. -cont pain management. incentive spirometry. -S/P 2 units PRBC transfusion. CBC stable. -diagnosed with acute PE: was on heparin drip. hematology eval appreciated. recommend to cont current management. outpatient hypercoagulability workup is recommended. should be discharged on eliquis. -cont aggressive bowel regimen for opioid induced constipation. Pt passing gas. BM not regular yet. -HTN: on dyazide. -GI, DVT prophylaxis. -treated with IV fluids for rhabdomyolysis. urine RBC's are actually myoglobin from rhabdo ,not blood. no need for urology eval. trending lower. -oral diet. aspiration precautions -assessment and plan discussed with pt, his , and medical staff. DC plan to rehab in progress.
[2019-03-16] MEDS: DOCUSATE SODIUM 100 MG CAPSULE (FP) PO PRN (20:47)
[2019-03-16] MEDS: SENNOSIDES 8.6MG TABLET (FP) PO SCH (21:03)
[2019-03-17] MEDS: oxyCODONE HCL 5 MG TABLET PO PRN ×2 (04:23→17:51)
[2019-03-17] MEDS: CYCLOBENZAPRINE HCL 5 MG TABLET PO SCH ×3 (05:22→21:05)
[2019-03-17] MEDS: GABAPENTIN 300 MG CAPSULE (FP) PO SCH ×3 (05:22→21:05)
[2019-03-17 06:34] LABS: HEMATOCRIT 33.2 % (35.4-49); HEMOGLOBIN 11.5 GM/dL (11.7-16.9); MCHC 34.6 g/dl (32.0-35.9); MEAN CELL VOLUME 86.5 fl (80-96); MEAN PLT VOLUME 8.2 fl (7.5-11.1); PLATELET COUNT 203 K/MM3 (134-434); RBC 3.84 M/mm3 (4.00-5.60); RDW 13.2 % (11.9-15.9); WHITE BLOOD COUNT 10.6 K/mm3 (4.0-10.0)
[2019-03-17] MEDS: HEPARIN INFUSION - 25,000 UNITS/500 ML INFUS.BAG IVPB SCH ×2 (06:58→19:18)
[2019-03-17] MEDS ORDERED: PT OWN MED DRAWER 7, Y5N ONE ×2 (10:06→20:18)
[2019-03-17] MEDS: TRIAMTERENE AND HCTZ - 37.5 MG/25 MG CAPSULE PO SCH (10:10)
--- NOTE | 2019-03-17 12:31 | PN ---
Progress Note, Physician Chief Complaint: PULMONARY ALERT,COMFORTABLE,-RESP DISTRESS,-CP - Current Medication List Current Medications: Active Medications Bisacodyl (Dulcolax Suppository -) 10 mg RC PRN PRN PRN Reason: CONSTIPATION Last Admin: 03/15/19 15:00 Dose: 10 mg Cyclobenzaprine HCl (Cyclobenzaprine Hcl) 5 mg PO TID [facility] Stop: 03/21/19 20:03 Last Admin: 03/17/19 05:22 Dose: 5 mg Docusate Sodium (Colace -) 100 mg PO BID PRN PRN Reason: CONSTIPATION Last Admin: 03/16/19 20:47 Dose: 100 mg Gabapentin (Neurontin -) 300 mg PO TID [facility] Last Admin: 03/17/19 05:22 Dose: 300 mg Heparin Sodium (Porcine) (Heparin -) 1,000 unit IVPUSH PRN PRN PRN Reason: Heparin Last Admin: 03/15/19 15:55 Dose: 1,000 unit Heparin Sodium (Porcine) (Heparin -) 5,000 unit IVPUSH PRN PRN PRN Reason: Heparin Heparin Sodium/Dextrose (Heparin Infusion -) 25,000 units in 500 mls @ 20 mls/ hr IVPB TITR [facility]; Protocol Last Titration: 03/17/19 10:10 Dose: 1,850 units/hr, 37 mls/hr Ondansetron HCl (Zofran Injection) 4 mg IVPUSH Q6H PRN PRN Reason: NAUSEA AND/OR VOMITING Oxycodone HCl (Roxicodone -) 5 mg PO Q6H PRN PRN Reason: PAIN 1-5 Last Admin: 03/17/19 04:23 Dose: 5 mg Promethazine HCl (Phenergan Injection -) 12.5 mg IVPUSH Q6H PRN PRN Reason: NAUSEA-FOR RESCUE AFTER 15 MIN Senna (Senna -) 1 tab PO HS [facility] Last Admin: 03/16/19 21:03 Dose: 1 tab Simethicone (Mylicon -) 80 mg PO QID PRN PRN Reason: GAS Triamterene/HCTZ (Dyazide 25/37.5mg) 1 cap PO DAILY [facility] Last Admin: 03/17/19 10:10 Dose: 1 cap - Objective Vital Signs: Vital Signs Temperature 98.9 F 03/17/19 08:52 Pulse Rate 92 H 03/17/19 08:52 Respiratory Rate 20 03/17/19 08:52 Blood Pressure 142/79 03/17/19 08:52 O2 Sat by Pulse Oximetry (%) 99 03/17/19 08:52 Constitutional: Yes: Well Nourished, Calm Eyes: Yes: WNL HENT: Yes: WNL Neck: Yes: WNL Cardiovascular: Yes: Tachycardia, S1, S2 Respiratory: Yes: CTA Bilaterally Gastrointestinal: Yes: Normal Bowel Sounds, Soft Extremities: Yes: WNL Edema: No Labs: CBC, BMP 03/17/19 05:55 03/13/19 05:32 INR, PTT INR 1.15 (0.83-1.09) H 03/10/19 05:20 Problem List - Problems (1) HTN (hypertension) Code(s): I10 - ESSENTIAL (PRIMARY) HYPERTENSION (2) Hx of spinal surgery Code(s): Z98.890 - OTHER SPECIFIED POSTPROCEDURAL STATES (3) Pulmonary embolism Code(s): I26.99 - OTHER PULMONARY EMBOLISM WITHOUT ACUTE COR PULMONALE Assessment/Plan ASSESSMENT AND PLAN: Lumbar Stenosis with Radiculopathy and Neurogenic Claudication s/p L1-S1 Laminectomies/Osteotomies/Posterior Instrumentation/PLIF/ Biomechanical Devices Acute Pulmonary Emboli - anticoagulation - monitor H/H - pain control - Incentive spirometry - PO when flatus - bowel regimen - PT DR ISSA
--- NOTE | 2019-03-17 18:01 | PN ---
Progress Note, Physician Chief Complaint: SOB, back pain, weakness - Current Medication List Current Medications: Active Medications Bisacodyl (Dulcolax Suppository -) 10 mg RC PRN PRN PRN Reason: CONSTIPATION Last Admin: 03/15/19 15:00 Dose: 10 mg Cyclobenzaprine HCl (Cyclobenzaprine Hcl) 5 mg PO TID [facility] Stop: 03/21/19 20:03 Last Admin: 03/17/19 13:20 Dose: 5 mg Docusate Sodium (Colace -) 100 mg PO BID PRN PRN Reason: CONSTIPATION Last Admin: 03/16/19 20:47 Dose: 100 mg Gabapentin (Neurontin -) 300 mg PO TID [facility] Last Admin: 03/17/19 13:20 Dose: 300 mg Heparin Sodium (Porcine) (Heparin -) 1,000 unit IVPUSH PRN PRN PRN Reason: Heparin Last Admin: 03/15/19 15:55 Dose: 1,000 unit Heparin Sodium (Porcine) (Heparin -) 5,000 unit IVPUSH PRN PRN PRN Reason: Heparin Heparin Sodium/Dextrose (Heparin Infusion -) 25,000 units in 500 mls @ 20 mls/ hr IVPB TITR [facility]; Protocol Last Titration: 03/17/19 10:10 Dose: 1,850 units/hr, 37 mls/hr Ondansetron HCl (Zofran Injection) 4 mg IVPUSH Q6H PRN PRN Reason: NAUSEA AND/OR VOMITING Oxycodone HCl (Roxicodone -) 5 mg PO Q6H PRN PRN Reason: PAIN 1-5 Last Admin: 03/17/19 17:51 Dose: 5 mg Promethazine HCl (Phenergan Injection -) 12.5 mg IVPUSH Q6H PRN PRN Reason: NAUSEA-FOR RESCUE AFTER 15 MIN Senna (Senna -) 1 tab PO HS [facility] Last Admin: 03/16/19 21:03 Dose: 1 tab Simethicone (Mylicon -) 80 mg PO QID PRN PRN Reason: GAS Triamterene/HCTZ (Dyazide 25/37.5mg) 1 cap PO DAILY [facility] Last Admin: 03/17/19 10:10 Dose: 1 cap - Objective Vital Signs: Vital Signs Temperature 97.8 F 03/17/19 17:50 Pulse Rate 111 H 03/17/19 17:50 Respiratory Rate 20 03/17/19 17:50 Blood Pressure 122/99 03/17/19 17:50 O2 Sat by Pulse Oximetry (%) 99 03/17/19 08:52 Constitutional: Yes: Well Nourished Eyes: Yes: WNL HENT: Yes: WNL Neck: Yes: WNL Cardiovascular: Yes: WNL Respiratory: Yes: WNL Gastrointestinal: Yes: WNL Genitourinary: Yes: WNL Musculoskeletal: Yes: WNL, Back Pain Extremities: Yes: WNL Integumentary: Yes: WNL Wound/Incision: Yes: Clean/Dry, Well Approximated Neurological: Yes: WNL ...Motor Strength: WNL Psychiatric: Yes: WNL Labs: CBC, BMP 03/17/19 05:55 03/13/19 05:32 INR, PTT INR 1.15 (0.83-1.09) H 03/10/19 05:20 Assessment/Plan 53 y/o M with no significant PMH who was experiencing chronic back and leg pain and was brought to the hospital for surgical repair of thoraco-lumosacral disease. found to have acute PE. -S/P: 1. L1, L2, L3, L4, L5, S1 laminectomies. 2. L1, L2, L3, L4, L5, S1 osteotomies (facetectomies). 3. L4-L5 [place] Osteotomies. 4. T11-S1 posterior instrumentation. 5. L2-L3, L4-L5, L5-S1 discectomies. 6. L2-L3, L4- L5, L5-S1 posterior lumbar interbody fusion. 7. L2-L3, L4-L5, L5-S1 insertion biomechanical devices. 8. T11-S1 posterolateral arthrodesis. 9. Durotomy repair. 10. Bone allograft. 11. Bone autograft. 12. Bone marrow aspiration. 13. Complex wound closure (30cm). clinically improved. -cont pain management. incentive spirometry. -S/P 2 units PRBC transfusion. CBC stable. -diagnosed with acute PE: was on heparin drip. hematology eval appreciated. recommend to cont current management. outpatient hypercoagulability workup is recommended. should be discharged on eliquis. -cont aggressive bowel regimen for opioid induced constipation. -HTN: on dyazide. -GI, DVT prophylaxis. -treated with IV fluids for rhabdomyolysis. urine RBC's are actually myoglobin from rhabdo ,not blood. no need for urology eval. -oral diet. aspiration precautions -assessment and plan discussed with pt, his , and medical staff. DC plan to rehab in progress. hopefully tomorrow.
[2019-03-17] MEDS ORDERED: oxyCODONE HCL 5 MG TABLET PO PRN (19:48)
[2019-03-17] MEDS: DOCUSATE SODIUM 100 MG CAPSULE (FP) PO PRN (20:23)
[2019-03-17] MEDS: APIXABAN 5 MG TABLET PO SCH (20:24)
[2019-03-17] MEDS ORDERED: ACETAMINOPHEN 325 MG TABLET (FP) PO PRN (20:25)
[2019-03-17] MEDS: SENNOSIDES 8.6MG TABLET (FP) PO SCH (21:06)
[2019-03-18] MEDS ORDERED: PT OWN MED DRAWER 7, Y5N ONE ×2 (05:13→09:05)
[2019-03-18] MEDS: GABAPENTIN 300 MG CAPSULE (FP) PO SCH ×2 (05:15→15:12)
[2019-03-18] MEDS: CYCLOBENZAPRINE HCL 5 MG TABLET PO SCH ×2 (05:16→15:12)
[2019-03-18 06:45] LABS: HEMATOCRIT 35.5 % (35.4-49); HEMOGLOBIN 12.2 GM/dL (11.7-16.9)
[2019-03-18 07:41] LABS: MCH 29.4 pg (25.7-33.7); MCHC 34.3 g/dl (32.0-35.9); MEAN CELL VOLUME 85.6 fl (80-96); MEAN PLT VOLUME 8.6 fl (7.5-11.1); PLATELET COUNT 188 K/MM3 (134-434); RBC 4.14 M/mm3 (4.00-5.60); RDW 13.6 % (11.9-15.9); WHITE BLOOD COUNT 8.9 K/mm3 (4.0-10.0)
[2019-03-18] MEDS: APIXABAN 5 MG TABLET PO SCH (09:13)
[2019-03-18] MEDS: TRIAMTERENE AND HCTZ - 37.5 MG/25 MG CAPSULE PO SCH (09:13)
--- NOTE | 2019-03-18 09:58 | PN ---
Progress Note (short form) - Note Progress Note: 53M s/p L1-S1 decompression & T11-S1 posterolateral instrumented arthrodesis POD #9. Pt. has confirmed post-operative pulmonary embolism; receiving Eliquis 5mg PO BID. Pain well controlled. Pt. denies overnight history of headaches, chest pain, shortness of breath, nausea, vomiting, chills, & sweats. (+) Lambert; (+) Flatus; (+) BM. No physical therapy today. All labs and vitals reviewed. PE: AAO x 3, NAD. L-Spine: Incision, dressing C/D/I. B/L LE M: L2-S1 intact, minimum 3/5. B/L LE S: L2-S1 2/2. 53M s/p L1-S1 decompression & T11-S1 posterolateral instrumented arthrodesis POD #9. -Pain control: NO NSAID's. -Nursing care: fastidious avoidance of decubitus ulcers; log roll/place on wedge pillows every 2 hours; rolled up towels under the ankles to offload the heels. -DVT PPx: -Mechanical only: BEAU's, SCD's. -Chemical: will switch to oral therapeutic DVT PPx. -Incentive spirometry q15 min. -Regular diet. -PT/OT/Rehab, OOB. -WBAT B/L LE. -Raised toilet seat. -No bending, lifting (>5 lbs), or twisting for 9-12 months. -Care per medical hospitalist Dr. Henson. -Discharge planning: [facility]; f/u 7[facility]10 days [facility] [place] [facility]; call for appointment; . -Will follow. Rex Paredes MD (Orthopaedic Surgery).
--- NOTE | 2019-03-18 10:45 | PN ---
Progress Note, Physician History of Present Illness: pulmonary alert,no distress,-cp,-sob - Current Medication List Current Medications: Active Medications Acetaminophen (Tylenol -) 650 mg PO Q6H PRN PRN Reason: FEVER > 100.4 Apixaban (Eliquis -) 5 mg PO BID [facility] Last Admin: 03/18/19 09:13 Dose: 5 mg Bisacodyl (Dulcolax Suppository -) 10 mg RC PRN PRN PRN Reason: CONSTIPATION Last Admin: 03/15/19 15:00 Dose: 10 mg Cyclobenzaprine HCl (Cyclobenzaprine Hcl) 5 mg PO TID [facility] Stop: 03/21/19 20:03 Last Admin: 03/18/19 05:16 Dose: 5 mg Docusate Sodium (Colace -) 100 mg PO BID PRN PRN Reason: CONSTIPATION Last Admin: 03/17/19 20:23 Dose: 100 mg Gabapentin (Neurontin -) 300 mg PO TID [facility] Last Admin: 03/18/19 05:15 Dose: 300 mg Ondansetron HCl (Zofran Injection) 4 mg IVPUSH Q6H PRN PRN Reason: NAUSEA AND/OR VOMITING Oxycodone HCl (Roxicodone -) 5 mg PO Q6H PRN PRN Reason: PAIN LEVEL 1-5 Last Admin: 03/18/19 02:39 Dose: 5 mg Promethazine HCl (Phenergan Injection -) 12.5 mg IVPUSH Q6H PRN PRN Reason: NAUSEA-FOR RESCUE AFTER 15 MIN Senna (Senna -) 1 tab PO HS [facility] Last Admin: 03/17/19 21:06 Dose: 1 tab Simethicone (Mylicon -) 80 mg PO QID PRN PRN Reason: GAS Triamterene/HCTZ (Dyazide 25/37.5mg) 1 cap PO DAILY [facility] Last Admin: 03/18/19 09:13 Dose: 1 cap - Objective Vital Signs: Vital Signs Temperature 98.4 F 03/18/19 08:06 Pulse Rate 94 H 03/18/19 08:06 Respiratory Rate 20 03/18/19 08:06 Blood Pressure 125/85 03/18/19 08:06 O2 Sat by Pulse Oximetry (%) 99 03/18/19 08:06 Constitutional: Yes: Well Nourished, Calm Eyes: Yes: WNL HENT: Yes: WNL Neck: Yes: WNL Cardiovascular: Yes: Regular Rate and Rhythm, S1, S2 Respiratory: Yes: CTA Bilaterally Gastrointestinal: Yes: Normal Bowel Sounds, Soft Extremities: Yes: WNL Edema: No Labs: CBC, BMP 03/18/19 05:45 Problem List - Problems (1) HTN (hypertension) Code(s): I10 - ESSENTIAL (PRIMARY) HYPERTENSION (2) Hx of spinal surgery Code(s): Z98.890 - OTHER SPECIFIED POSTPROCEDURAL STATES (3) Pulmonary embolism Code(s): I26.99 - OTHER PULMONARY EMBOLISM WITHOUT ACUTE COR PULMONALE Assessment/Plan ASSESSMENT AND PLAN: Lumbar Stenosis with Radiculopathy and Neurogenic Claudication s/p L1-S1 Laminectomies/Osteotomies/Posterior Instrumentation/PLIF/ Biomechanical Devices Acute Pulmonary Emboli - Eliquis - Incentive spirometry - PT DR ISSA
--- NOTE | 2019-03-18 10:59 | DS ---
Physical Examination Vital Signs: Vital Signs Temperature 98.4 F 03/18/19 08:06 Pulse Rate 94 H 03/18/19 08:06 Respiratory Rate 20 03/18/19 08:06 Blood Pressure 125/85 03/18/19 08:06 O2 Sat by Pulse Oximetry (%) 99 03/18/19 08:06 Constitutional: Yes: Well Nourished, No Distress, Calm Eyes: Yes: WNL HENT: Yes: WNL Neck: Yes: WNL Cardiovascular: Yes: WNL Respiratory: Yes: WNL Gastrointestinal: Yes: WNL Renal/: Yes: WNL Musculoskeletal: Yes: Back Pain Extremities: Yes: WNL Edema: No Peripheral Pulses WNL: Yes Integumentary: Yes: WNL Wound/Incision: Yes: Clean/Dry, Well Approximated Neurological: Yes: WNL ...Motor Strength: WNL Psychiatric: Yes: WNL Labs: CBC, BMP 03/18/19 05:45 03/13/19 05:32 Discharge Summary Reason For Visit: INTERVERTEBRAL DISC DISORDER Current Active Problems HTN (hypertension) (Acute) Hx of spinal surgery (Acute) Pulmonary embolism (Acute) - Instructions - Home Medications Comprehensive Discharge Medication List: Ambulatory Orders Cholecalciferol (Vitamin D3) [Vitamin D] 2,000 unit PO DAILY 03/06/19 Docusate Sodium [Colace] 100 mg PO BID 03/06/19 Oxycodone HCl/Acetaminophen [Percocet 5-325 mg Tablet] 1 tab PO Q4H 03/06/19 Triamterene/Hydrochlorothiazid [Triamterene-Hctz 37.5-25 mg Cp] 1 each PO DAILY 03/06/19
[2019-03-18 14:38] VITALS: BP 118/86; PULSE 88; TEMP 98.6
== END 2019-03-18 16:15 | DRG 453 ==
LOC: JSAMEDAYSX 06:11 → JICU 16:02 → J4S 03-13 18:31
PROVIDERS: ADMIT Orthopaedic Surgery Adult Reconstructive Orthopaedic Surgery; ATTEND Orthopaedic Surgery Adult Reconstructive Orthopaedic Surgery
PROC: 0SG1071 Fusion of 2 or more Lumbar Vertebral Joints with Autologous Tissue Substitute, Posterior Approach, Posterior Column, Open Approach (ICD-10-PCS; 2019-03-09)
PROC: 0SB20ZZ Excision of Lumbar Vertebral Disc, Open Approach (ICD-10-PCS; 2019-03-09)
PROC: 0SG30AJ Fusion of Lumbosacral Joint with Interbody Fusion Device, Posterior Approach, Anterior Column, Open Approach (ICD-10-PCS; 2019-03-09)
PROC: 0SG30J1 Fusion of Lumbosacral Joint with Synthetic Substitute, Posterior Approach, Posterior Column, Open Approach (ICD-10-PCS; 2019-03-09)
PROC: 0SG3071 Fusion of Lumbosacral Joint with Autologous Tissue Substitute, Posterior Approach, Posterior Column, Open Approach (ICD-10-PCS; 2019-03-09)
PROC: 0SB40ZZ Excision of Lumbosacral Disc, Open Approach (ICD-10-PCS; 2019-03-09)
PROC: 0RG60AJ Fusion of Thoracic Vertebral Joint with Interbody Fusion Device, Posterior Approach, Anterior Column, Open Approach (ICD-10-PCS; 2019-03-09)
PROC: 0RG6071 Fusion of Thoracic Vertebral Joint with Autologous Tissue Substitute, Posterior Approach, Posterior Column, Open Approach (ICD-10-PCS; 2019-03-09)
PROC: 0RGA0AJ Fusion of Thoracolumbar Vertebral Joint with Interbody Fusion Device, Posterior Approach, Anterior Column, Open Approach (ICD-10-PCS; 2019-03-09)
PROC: 0RGA07J Fusion of Thoracolumbar Vertebral Joint with Autologous Tissue Substitute, Posterior Approach, Anterior Column, Open Approach (ICD-10-PCS; 2019-03-09)
PROC: 0JX70ZZ Transfer Back Subcutaneous Tissue and Fascia, Open Approach (ICD-10-PCS; 2019-03-09)
PROC: 00QT0ZZ Repair Spinal Meninges, Open Approach (ICD-10-PCS; 2019-03-09)
PROC: 07DR0ZZ Extraction of Iliac Bone Marrow, Open Approach (ICD-10-PCS; 2019-03-09)
PROC: 4A11X4G Monitoring of Peripheral Nervous Electrical Activity, Intraoperative, External Approach (ICD-10-PCS; 2019-03-09)
PROC: 07DR0ZZ Extraction of Iliac Bone Marrow, Open Approach (ICD-10-PCS; 2019-03-09)
PROC: B01BZZZ Fluoroscopy of Spinal Cord (ICD-10-PCS; 2019-03-09)
PROC: 0SG10AJ Fusion of 2 or more Lumbar Vertebral Joints with Interbody Fusion Device, Posterior Approach, Anterior Column, Open Approach (ICD-10-PCS; principal; 2019-03-09 08:00)
DX: M51.16 Intervertebral disc disorders with radiculopathy, lumbar region (principal); I26.99 Other pulmonary embolism without acute cor pulmonale; G96.11 Dural tear; M40.295 Other kyphosis, thoracolumbar region; M48.062 Spinal stenosis, lumbar region with neurogenic claudication; M53.2X6 Spinal instabilities, lumbar region; R11.0 Nausea; I10 Essential (primary) hypertension; R00.0 Tachycardia, unspecified; D72.829 Elevated white blood cell count, unspecified; Y83.8 Other surgical procedures as the cause of abnormal reaction of the patient, or of later complication, without mention of misadventure at the time of the procedure
CPT/HCPCS: 36415; 36430; 36511; 36600; 71275-TC; 76000-TC-FY; 80048; 80053; 81003; 82550; 82553; 82803; 83735; 84100; 84484; 85027; 85044; 85379; 85610; 85730; 86850; 86900; 86901; 86922; 87086; 88304-TC; 93306-TC; 93926-TC; 93970-TC; 97116-GP; 97163-GP; J0131; J1644; P9038; P9058